=== PATIENT | male | born 1960 | race African-American/Black ===

== ENCOUNTER 2018-02-10 13:21 | Emergency (ER) | payer MEDICARE ==
--- OUTSIDE RECORDS SUMMARY | 2018-02-10 13:23 | XMS REPORT | Clinical Summary ---
:1960 Author Organization [facility] Address [address] [place] [address] Care Team Providers Name Role Phone Norberto Springer MD Primary Care Provider Allergies No Known Allergies Current Medications Prescription Sig. Disp. Refills Start Date End Date Status metFORMIN 2 (two) times 01/16/2017 Active (GLUCOPHAGE) 500 mg a day. tablet lancets 30 gauge USE TO TEST 3 12/31/2016 Active [facility] BLOOD GLUCOSE TWICE DAILY glimepiride daily. 01/16/2017 Active (AMARYL) 2 MG tablet ONETOUCH ULTRA TEST 02/26/2017 Active strip test strips lisinopril Take 1 tablet 90 tablet 3 03/04/2017 Active (PRINIVIL,ZESTRIL) (10 mg total) 10 mg tablet by mouth daily. amLODIPine Take 1 tablet 90 tablet 3 01/14/2018 Active (NORVASC) 5 mg (5 mg total) tablet by mouth daily. atorvastatin Take 1 tablet 90 tablet 3 01/14/2018 Active (LIPITOR) 40 MG (40 mg total) tablet by mouth daily. carvedilol (COREG) Take 1 tablet 180 tablet 3 01/14/2018 Active 3.125 MG tablet (3.125 mg total) by mouth 2 (two) times a day. lisinopril daily. 01/10/2017 03/04/2017 Discontinued (PRINIVIL,ZESTRIL) 10 mg tablet atorvastatin daily. 01/29/2017 03/04/2017 Discontinued (LIPITOR) 40 MG tablet carvedilol (COREG) 2 (two) times 01/29/2017 03/04/2017 Discontinued 3.125 MG tablet a day. amLODIPine Take 5 mg by 03/04/2017 Discontinued (NORVASC) 5 mg mouth daily. tablet carvedilol (COREG) Take 1 tablet 180 tablet 3 03/04/2017 01/14/2018 Discontinued 3.125 MG tablet (3.125 mg total) by mouth 2 (two) times a day. atorvastatin Take 1 tablet 90 tablet 3 03/04/2017 01/14/2018 Discontinued (LIPITOR) 40 MG (40 mg total) tablet by mouth daily. amLODIPine Take 1 tablet 90 tablet 3 03/04/2017 01/14/2018 Discontinued (NORVASC) 5 mg (5 mg total) tablet by mouth daily. carvedilol (COREG) Take 1 tablet 180 tablet 3 01/14/2018 01/14/2018 Discontinued 3.125 MG tablet (3.125 mg total) by mouth 2 (two) times a day. atorvastatin Take 1 tablet 90 tablet 3 01/14/2018 01/14/2018 Discontinued (LIPITOR) 40 MG (40 mg total) tablet by mouth daily. amLODIPine Take 1 tablet 90 tablet 3 01/14/2018 01/14/2018 Discontinued (NORVASC) 5 mg (5 mg total) tablet by mouth daily. 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 after 02/09/2017 Family History Medical History Relation Name Comments Diabetes Mother Heart disease Mother Hypertension Mother Relation Name Status Comments Mother Social History Tobacco Use Types Packs/Day Years Used Date Former Smoker Alcohol Use Drinks/Week oz/Week Comments No Sex Assigned at Date Recorded Not on file Last Filed Vital Signs Vital Sign Reading Time Taken Blood Pressure 166/97 03/04/2017 12:07 PM CDT Pulse 85 03/04/2017 12:07 PM CDT Temperature - - Respiratory Rate - - Oxygen Saturation - - Inhaled Oxygen Concentration - - Weight 98 kg (216 lb) 03/04/2017 11:45 AM CDT Height 172.7 cm (5' 8") 03/04/2017 11:45 AM CDT Body Mass Index 32.84 03/04/2017 11:45 AM CDT Plan of Treatment Health Maintenance Due Date Last Done Comments DIABETIC FOOT EXAM 1969 DIABETIC RETINAL EYE EXAM 1969 URINE MICROALBUMIN 1969 COLON CANCER SCREENING 2009 SHINGRIX VACCINE (#1) 2009 INFLUENZA VACCINE 03/12/2018 Procedures Procedure Name Priority Date/Time Associated Diagnosis Comments ECG 12-LEAD Routine 03/04/2017 11:01 AM Chest pain, Results for this CDT unspecified type procedure are in the results section. after 02/09/2017 Results ECG 12 lead (03/04/2017 11:01 AM) Ventricular rate 61 [facility] Atrial rate 61 [facility] KS interval 174 [facility] QRSD interval 90 [facility] QT interval 398 [facility] QTC interval 400 [facility] P axis 1 49 [facility] QRS axis 1 50 [facility] T wave axis 21 [facility] EKG impression Normal sinus rhythm-Minimal voltage criteria [facility] for LVH, may be normal variant-Borderline ECG-No previous ECGs available- Performing Organization Address City/State/Zipcode Phone Number [facility] [address] [place] [address] after 02/09/2017 Insurance Payer Benefit Plan / Group Subscriber ID Type Phone Address [facility] MEDICARE [employer] MEDICARE COMPLETE [facility] xxxxxxxxx HMO Home: [address] [place], [place] [phone] [address]
--- NOTE | 2018-02-10 14:41 | ER ---
Nurse's Notes [facility] Name: Alexandru Galan Age: 57 yrs Sex: Male : 1960 Arrival Date: 02/10/2018 Time: 13:24 Bed 23 Private MD: Norberto Springer E Diagnosis: Acute sinusitis Presentation: 02/10 13:30 Presenting complaint: Patient states: i have a sinus problem since and now i hj noticed its anand swollen; refused using nasal spray meds; denies fever and chills;. Transition of care: patient was not received from another setting of care. Onset of symptoms was February 10, 2018. Risk Assessment: Do you want to hurt yourself or someone else? Patient reports no desire to harm self or others. Initial Sepsis Screen: Does the patient meet any 2 criteria? No. Patient's initial sepsis screen is negative. Does the patient have a suspected source of infection? No. Patient's initial sepsis screen is negative. Care prior to arrival: None. 13:30 Method Of Arrival: Ambulatory 13:30 Acuity: NACHO 4 hj Triage Assessment: 13:32 General: Appears in no apparent distress. uncomfortable, Behavior is calm, cooperative, hj appropriate for age. Pain: Complains of pain in nose Pain currently is 7 out of 10 on a pain scale. Historical: - Allergies: 13:32 NKDA; hj - Home Meds: 13:32 Glimepiride Oral [Active]; lisinopril 20 mg Oral tab 1 tab once daily [Active]; hj metformin 500 mg Oral tab 1 tab 2 times per day [Active]; - PMHx: 13:32 Diabetes - NIDDM; Hypertension; hj - PSHx: 13:32 neck; hj - Immunization history:: Adult Immunizations up to date. - Social history:: Smoking status: Patient/guardian denies using tobacco, Patient/guardian denies using alcohol. - Ebola Screening: : Patient negative for fever greater than or equal to 101.5 degrees Fahrenheit, and additional compatible Ebola Virus Disease symptoms Patient denies exposure to infectious person Patient denies travel to an Ebola-affected area in the 21 days before illness onset. Screenin:34 Abuse screen: Denies threats or abuse. Denies injuries from another. Nutritional hj screening: No deficits noted. Tuberculosis screening: No symptoms or risk factors identified. Fall Risk None identified. Assessment: 13:51 General: Appears in no apparent distress. comfortable, Behavior is calm, cooperative, aj appropriate for age. Pain: Complains of pain in nose and left cheek. Neuro: Level of Consciousness is awake, alert, obeys commands, Oriented to person, place, time, situation, Appropriate for age. Respiratory: Airway is patent Respiratory effort is even, unlabored, Respiratory pattern is regular, symmetrical. EENT: Reports nasal congestion pain in nose and left cheek. Derm: Skin is intact, is healthy with good turgor, Skin is pink, warm \T\ dry. normal. 14:59 Reassessment: Patient appears in no apparent distress at this time. No changes from aj previously documented assessment. Patient and/or family updated on plan of care and expected duration. Pain level reassessed. Patient is alert, oriented x 3, equal unlabored respirations, skin warm/dry/pink. Patient states feeling better. Patient states symptoms have improved. Vital Signs: 13:32 BP 152 / 94; Pulse 78; Resp 18; Temp 98.0(TE); Pulse Ox 99% on R/A; Weight 93.44 kg; hj Height 5 ft. 8 in. (172.72 cm); Pain 7/10; 14:59 BP 149 / 87; Pulse 61; Resp 19; Pulse Ox 100% on R/A; aj 13:32 Body Mass Index 31.32 (93.44 kg, 172.72 cm) ED Course: 13:24 Patient arrived in ED. mr 13:25 Norberto Springer MD is Private Physician. mr 13:31 Triage completed. hj 13:34 Arm band placed on right wrist. hj 13:34 Patient has correct armband on for positive identification. Bed in low position. Call light in reach. Side rails up X 1. 13:41 Malathi Saunders, MICHEAL is Primary Nurse. aj 13:43 Jericho Interiano MD is Attending Physician. ps1 13:51 No provider procedures requiring assistance completed. aj 14:40 Norberto Springer MD is Referral Physician. ps1 14:59 Patient did not have IV access during this emergency room visit. aj Administered Medications: 14:53 Drug: Afrin Drops (0.05 %) 2 sprays Route: Intranasal; Site: left nare; aj Outcome: 14:41 Discharge ordered by . ps1 14:59 Discharged to home ambulatory, with family. aj 14:59 Condition: good 14:59 Discharge instructions given to patient, Instructed on discharge instructions, follow up and referral plans. medication usage, Demonstrated understanding of instructions, follow-up care, medications, Prescriptions given X 2. 15:02 Patient left the ED. aj Signatures: Malathi Saunders RN RN aj Rivera, Maria mr Geoff Agustin RN RN hj Singer, Phillip, MD MD ps1 Corrections: (The following items were deleted from the chart) 13:34 13:32 Pulse 78bpm; Resp 18bpm; Pulse Ox 99% RA; Temp 98.0F Temporal; 93.44 kg; Height 5 hj ft. 8 in.; BMI: 31.3; Pain 7/10; hj
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
[2018-02-10] MEDS ORDERED: OXYMETAZOLINE HCL 0.05% 30ML NAS ONE (14:45)
[2018-02-10 15:06] VITALS: TEMP 98
[2018-02-10 15:07] VITALS: BP 149/87; O2SAT 100
== END 2018-02-10 15:02 | disposition home or self-care (01) ==
LOC: ER 13:21
DX: J01.90 Acute sinusitis, unspecified (principal); I10 Essential (primary) hypertension; E11.9 Type 2 diabetes mellitus without complications
CPT/HCPCS: 99283

== ENCOUNTER 2022-04-27 07:47 | Emergency (ER) | payer OTHER ==
--- OUTSIDE RECORDS SUMMARY | 2022-04-27 07:50 | XMS REPORT | Continuity of Care Document ---
:1960 Author Organization [facility] t Address [address] [place] [address] Care Team Providers Name Role Phone Gian Kimball MD, Norberto Primary Care Physician [phone] JENNIFER LOUIE Attending Clinician Unavailable TORREY COMBS Attending Clinician Unavailable ANN ALVAREZ Attending Clinician Unavailable LAB47 Attending Clinician Unavailable Ann Alvarez MD Attending Clinician MD SORAIDA Attending Clinician Unavailable COVMARKY ALMONTE Attending Clinician Unavail able ALYSHA ESQUEDA Attending Clinician Unavailable Doctor Unassigned, [place] Attending Clinician Unavailable Lab, Adc Fam Pob I Attending Clinician Unavailable Daysi Cardona Attending Clinician Haroldo-Mbayo_A_AH Attending Clinician Unavailable Haroldo-Mbayo_A_AH Admitting Clinician Unavailable Payers Payer Name Policy Type Policy Number Effective Date Expiration Date S pastora [employer] TXP 7 [id number] 2021 CLASSIC NO PREMIUM 00:00:00 R2T [employer] OF [place] - [id number] 2019 [employer]US 00:00:00 (MEDICARE REPLACEMENT/ADVANT AGE - HMO) Problems Condition Condition Condition Status Onset Resolution Last Treating Co mments Source Name Details Category Date Date Treatment Clinician Date 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 Diabetic with a1c > 8% resulting in immunosup pression. Last Assessmen t & Plan: Formattin g of this note might be different from the original. Unchanged - working on improving glycemic control Allergic Allergic Disease Active Overview: Kirt burns rhinitis rhinitis 01-11 Medhat Sowy bold 00:00: g of this 00 note might be different from the original. On singulair Last Assessmen t & Plan: Formattin g of this note might be different from the original. Controlle d Obesity Obesity Disease Active Overview: Anjali lima (BMI (BMI 11-10 Formattin Seybold 30.0-34.9) 30.0-34.9) 00:00: g of this 00 note might be different from the original. Advising improving diet and exercise with goal for 10-15% weight loss annuallyL ast Assessmen t & Plan: Formattin g of this note might be different from the original. Unchanged - goals reviewed Type 2 Type 2 Disease Active Overview: Yaneli diabetes diabetes 11-10 Formattin y bold mellitus mellitus 00:00: g of this with with 00 note microalbum microalbum might be inuria, inuria, different without without from the long-term long-term original. current current Goal a1c use of use of < 7%Goal insulin insulin fasting glucose 80-130On metformin , glimepiri deMonitor ing renal functionO n Lisinopri lLast Assessmen t & Plan: Formattin g of this note might be different from the original. Not Controlle d DM on last check- c/w current meds/dose s; adjustmen ts based on labsUncha nged renal function- c/w current med/dose Class 1 Class 1 Disease Active Overview: Anjali lima obesity obesity 11-10 Formattin Sejuliao ld due to due to 00:00: g of this excess excess 00 note calories calories might be with with different serious serious from the comorbidit comorbidit original. y and body y and body Advising mass index mass index healthy (BMI) of (BMI) of diet and 31.0 to 31.0 to exercise 31.9 in 31.9 in with goal adult adult for 10-15% weight loss annuallyL ast Assessmen t & Plan: Formattin g of this note might be different from the original. Unchanged - goals reviewed Dyslipidem Dyslipidem Disease Active Overview : Yaneli ia ia - Formattin Seybold associated associated 00:00: g of this with type with type 00 note 2 diabetes 2 diabetes might be mellitus mellitus different from the original. Goal A1c < 7%Goal fasting glucose 80-130On Metformin , Glimepiri deLDL goal % reduction 50+%On ASA, Atorvasta tinLast Assessmen t & Plan: Formattin g of this note might be different from the original. Not Controlle d DM on last check- c/w current meds/dose s for now; adjustmen t based on labsContr olled cholester ol- c/w current med/dose Essential Essential Disease Active Overview: Yaneli hypertensi hypertensi - Formattin Seybold on on 00:00: g of this 00 note might be different from the original. Goal BP < 130/80On amlodipin e, coreg, lisinopri Monica PRN HYDRALAZI NE FOR SBP > 165Last Assessmen t & Plan: Formattin g of this note might be different from the original. Controlle d - c/w current meds/dose s Neck pain, Neck pain, Disease Active Overview : Yaneli chronic chronic 08-25 Formattin Seybo ld 00:00: g of this 00 note might be different from the original. S/p surgeryFo llowed in the past by Dr[facility] PR[facility] mobicLast Assessmen t & Plan: Formattin g of this note might be different from the original. Controlle d Chronic Chronic Disease Active Overview: Anjali ey pain of pain of 08-25 Formattin Seybo ld left elbow left elbow 00:00: g of this 00 note might be different from the original. S/p surgeryFo llowed in the past by Dr[facility] PRN mobicLast Assessmen t & Plan: Formattin g of this note might be different from the original. Controlle d Dyslipidem Dyslipidem Disease Active Overview : Yaneli chong ia 08-25 Formattin Seybold 00:00: g of this 00 note might be different from the original. Goal LDL % reduction 50+%On Atorvasta tinLast Assessmen t & Plan: Formattin g of this note might be different from the original. Controlle d - c/w current med/dose Allergies, Adverse Reactions, Alerts Allergy Allergy Status Severity Reaction(s) Onset Inactive Treating Comm ents Source Name Type Date Date Clinician NO KNOWN Drug Active [facility] ALLERGIE Class [facility] of [facility] Family History Family Member Diagnosis Comments Start Date Stop Date Source Natural mother Diabetes [facility] Natural mother Heart disease [facility] mother Hypertension [facility] Social History Social Habit Start Date Stop Date Quantity Comments Source Exposure to Not sure Yaneli diaz SARS-CoV-2 (event) Tobacco use and 2020-08-25 2020-08-25 Smokeless tobacco Kirt burns Seybold exposure 00:00:00 00:00:00 non-user Tobacco Comment 2020-08-25 2020-08-25 quit at age 20 Vicki shine Seybjyothi 00:00:00 00:00:00 Alcohol intake 2017-03-04 2017-03-04 Current [facility] 00:[facility] 00:00:00 non-drinker of Hospital alcohol (finding) History of 1981-08-25 Smoker Yaneli Lieberman tobacco use 00:00:00 Sex Ass[birth year] At [birth year] [facility] 00:[facility]00 Hospital Smoking Status Start Date Stop Date Source Unknown if ever smoked [facility] Ex-smoker 2020-08-25 00:00:00 2020-08-25 00:00:00 Yaneli baumann Medications Ordered Filled Start Stop Current Ordering Indication Dosage Frequency Signature Comments Components Source Medication Medication Date Date Medication? Clinician (SIG) Name Name Tdap Yes [id number] Administer Kirt burns (ADACEL) 6-02 one Seybold 5-2-15.5 00:00: LF-MCG/0.5 00 intramuscul ar Suspension Meloxicam Yes [id number] TAKE 1 Yaneli 15 MG oral 3-16 [id number] TABLET BY Se ybold Tablet 00:00: MOUTH 00 EVERY DAY NEEDED FOR PAIN Amlodipine Yes [id number] 10mg Take 1 K elsey Besylate 10 1-14 tablet (10 Se ybold MG oral 00:00: mg total) Tablet 00 by mouth daily Atorvastati 0 Yes [id number] 40mg Take 1 Yaneli n Calcium 1-14 tablet (40 Seyb old 40 MG oral 00:00: mg total) Tablet 00 by mouth daily Carvedilol 0 Yes [id number] 3.125mg Take 1 Yaneli 3.125 MG 1-14 tablet Seybold oral Tablet 00:00: (3.125 mg 00 total) by mouth 2 times daily (with meals) Glimepiride 0 Yes [id number] 2mg Take 1 Yaneli 2 MG oral 1-14 tablet (2 Seybo ld Tablet 00:00: mg total) 00 by mouth every morning (before breakfast) Lisinopril 0 Yes [id number] 10mg Take 1 K elsey 10 MG oral 1-14 tablet (10 Sey bold Tablet 00:00: mg total) 00 by mouth daily Metformin Yes [id number] 1000mg Take 1 Yaneli HCl 1000 MG 1-14 tablet Seybol d oral Tablet 00:00: (1,000 mg 00 total) by mouth 2 times daily (with meals) Amlodipine 0 Yes [id number] 10mg Take 1 K elsey Besylate 10 1-14 tablet (10 Se ybold MG oral 00:00: mg total) Tablet 00 by mouth daily Atorvastati 0 Yes [id number] 40mg Take 1 Ynaeli n Calcium 1-14 tablet (40 Seyb old 40 MG oral 00:00: mg total) Tablet 00 by mouth daily Carvedilol 0 Yes [id number] 3.125mg Take 1 Yaneli 3.125 MG 1-14 tablet Seybold oral Tablet 00:00: (3.125 mg 00 total) by mouth 2 times daily (with meals) Glimepiride 2021-0 Yes [id number] 2mg Take 1 Yaneli 2 MG oral 1-14 tablet (2 Seybo ld Tablet 00:00: mg total) 00 by mouth every morning (before breakfast) Lisinopril 2021-0 Yes [id number] 10mg Take 1 K elsey 10 MG oral 1-14 tablet (10 Sey bold Tablet 00:00: mg total) 00 by mouth daily Metformin Yes [id number] 1000mg Take 1 Yaneli HCl 1000 MG -14 tablet Seybol d oral Tablet 00:00: (1,000 mg 00 total) by mouth 2 times daily (with meals) Meloxicam 2020-08 Yes [id number] TAKE 1 Yaneil 15 MG oral 09-13 [id number] TABLET BY Se ybold Tablet 00:00: MOUTH 00 EVERY DAY NEEDED FOR PAIN Lisinopril 2020-08- No [id number] TAKE 1 Yaneli 10 MG oral 08-1514 TABLET BY Sey bold Tablet 00:00: 00:00 MOUTH 00 :00 EVERY DAY Metformin 2021- No [id number] TAKE 1 K elsey HCl 1000 MG 02-15 TABLET BY Se ybold oral Tablet 00:00: 00:00 MOUTH 00 :00 TWICE A DAY WITH MEALS Carvedilol 2021- No [id number] TAKE 1 Yaneli 3.125 MG 18 08-25 TABLET BY Seybo ld oral Tablet 00:00: 00:00 MOUTH 00 :00 TWICE A DAY WITH MEALS Zoster Vac Yes [id number] One dose Yaneli Recomb 4 now. Seybold Adjuvanted 00:00: Second 50 00 dose given MCG/0.5ML two to six intramuscul months ar Recon AFTER Susp first dose. Zoster Vac 2021- No [id number] One dose Yaneli Recomb 4- 06-02 now. Seybold Adjuvanted 00:00: 00:00 Second 50 00 :00 dose given MCG/0.5ML two to six intramuscul months ar Recon AFTER Susp first dose. Amlodipine 2021- No [id number] 10mg Take 1 Yaneli Besylate 10 -14 tablet (10 S eybold MG oral 00:00: 00:00 mg total) Tablet 00 :00 by mouth daily Levocetiriz Yes 1{tbl} Take 1 Ke lsey ine 1-28 tablet by Seybold Dihydrochlo 00:00: mouth ride 5 MG 00 every oral Tablet evening Montelukast Yes 1{tbl} Take 1 Ke lsey (SINGULAIR) 1-28 tablet by Sey bold 10 MG oral 00:00: mouth Tablet 00 daily tablet Levocetiriz Yes 1{tbl} Take 1 Ke lsey ine 1-28 tablet by Seybold Dihydrochlo 00:00: mouth ride 5 MG 00 every oral Tablet evening Montelukast Yes 1{tbl} Take 1 Ke lsey (SINGULAIR) -28 tablet by Sey bold 10 MG oral 00:00: mouth Tablet 00 daily tablet Atorvastati 2021- No [id number] 40mg Take 1 Yaneli n Calcium 08-25 tablet (40 Sey bold 40 MG oral 00:00: 00:00 mg total) Tab 00 :00 by mouth daily Glimepiride 2021- No [id number] 2mg Take 1 Yaneli 2 MG oral 08-25 tablet (2 Seyb old Tab 00:00: 00:00 mg total) 00 :00 by mouth every morning (before breakfast) hydrALAZINE Yes [id number] TAKE 1 Yaneli HCl 10 MG 1-02 TABLET BY Seybo ld oral Tab 00:00: MOUTH UP 00 TO 3 TIMES A DAY IF SYSTOLIC BLOOD PRESSURE IS GREATER THAN 165 hydrALAZINE Yes [id number] TAKE 1 Yaneli HCl 10 MG 1-02 TABLET BY Seybo ld oral Tab 00:00: MOUTH UP 00 TO 3 TIMES A DAY IF SYSTOLIC BLOOD PRESSURE IS GREATER THAN 165 HYDROcodone 2019-08 Yes [id number] 1{tbl} Q8H Take 1 Yaneli -Acetaminop 2-29 [id number] tablet by [place] garcia 10-325 00:00: mouth MG oral Tab 00 every 8 hours as needed for pain HYDROcodone 2019-08- No [id number] 1{tbl} Q.[id number] Take 1 Yaneli -Acetaminop 2-29 06-02 [id number] tablet by Luisana garcia 10-325 00:00: 00:00 3D mouth MG oral Tab 00 :00 every 8 hours as needed for pain carvedilol Yes 3.125mg Q.5D Take 1 Me thodi (COREG) 6-[address] 3.125 MG 00:00: (3.125 mg Hosp [facility] tablet 00 total) by l mouth 2 (two) times a day. amLODIPine 2018-0 Yes 5mg QD Take 1 Metho di (NORVASC) 5 6-05 tablet (5 st mg tablet 00:00: mg total) Hos jennifer 00 by mouth l daily. atorvastati 2018-0 Yes 40mg QD Take 1 Meth butch n (LIPITOR) 6-05 tablet (40 st 40 MG 00:00: mg total) Hospita tablet 00 by mouth l daily. carvedilol 2018-0 Yes 3.125mg Q.5D Take 1 Me thodi (COREG) 6-[address] 3.125 MG 00:00: (3.125 mg Hosp kat[facility] tablet 00 total) by l mouth 2 (two) times a day. amLODIPine 2018-0 Yes 5mg QD Take 1 Metho di (NORVASC) 5 6-05 tablet (5 st mg tablet 00:00: mg total) Hos jennifer 00 by mouth l daily. atorvastati 2018-0 Yes 40mg QD Take 1 Meth butch n (LIPITOR) 6-05 tablet (40 st 40 MG 00:00: mg total) Hospita tablet 00 by mouth l daily. carvedilol 2018-0 Yes 3.125mg Q.5D Take 1 Me thodi (COREG) 6-[address] 3.125 MG 00:00: (3.125 mg Hosp [facility] tablet 00 total) by l mouth 2 (two) times a day. amLODIPine 2018-0 Yes 5mg QD Take 1 Metho di (NORVASC) 5 6-05 tablet (5 st mg tablet 00:00: mg total) Hos jennifer 00 by mouth l daily. atorvastati 2018-0 Yes 40mg QD Take 1 Meth butch n (LIPITOR) 6-05 tablet (40 st 40 MG 00:00: mg total) Hospita tablet 00 by mouth l daily. lisinopril 2017-0 Yes 10mg QD Take 1 Metho di (PRINIVIL,Z 7-24 tablet (10 st ESTRIL) 10 00:00: mg total) Ho spita mg tablet 00 by mouth l daily. lisinopril 2017-0 Yes 10mg QD Take 1 Metho di (PRINIVIL,Z 7-24 tablet (10 st ESTRIL) 10 00:00: mg total) Ho spita mg tablet 00 by mouth l daily. lisinopril 2017-0 Yes 10mg QD Take 1 Metho di (PRINIVIL,Z 7-24 tablet (10 st ESTRIL) 10 00:00: mg total) Ho spita mg tablet 00 by mouth l daily. ONETOUCH Yes Methodi ULTRA TEST 7-18 st strip test 00:00: Hospita strips 00 l ONETOUCH Yes [facility] ULTRA TEST 7-18 st strip test 00:00: Hospita strips 00 l ONETOUCH Yes [facility] ULTRA TEST 7-18 st strip test 00:00: Hospita strips 00 l glimepiride 2016-0 Yes QD daily. Meth butch (AMARYL) 2 6-07 st MG tablet 00:00: Hospita 00 l glimepiride Yes QD daily. Meth butch (AMARYL) 2 6-07 st MG tablet 00:00: Hospita 00 l metFORMIN Yes Q.5D 2 (two) Metho di (GLUCOPHAGE 6-[address] ) 500 mg 00:00: day. Hospita tablet 00 l metFORMIN Yes Q.5D 2 (two) Metho di (GLUCOPHAGE 6-[address] ) 500 mg 00:00: day. Hospita tablet 00 l glimepiride Yes QD daily. Meth butch (AMARYL) 2 6-07 st MG tablet 00:00: Hospita 00 l metFORMIN Yes Q.5D 2 (two) Metho di (GLUCOPHAGE 6-[address] ) 500 mg 00:00: day. Hospita tablet 00 l lancets Yes USE TO Metho di gauge misc 5-[address] 00:00: GLUCOSE Hospita 00 TWICE l DAILY lancets Yes USE TO Metho di gauge misc 5-[address] 00:00: GLUCOSE Hospita 00 TWICE l DAILY lancets Yes USE TO Metho di gauge misc 5-[address] 00:00: GLUCOSE Hospita 00 TWICE l DAILY Immunizations Ordered Immunization Filled Immunization Date Status Commen ts Source Name Name Pneumococcal Vaccine, 2021-08-25 Completed Shai Lieberman Polysaccharide 00:00:00 Pneumococcal Vaccine, 2021-08-25 Completed Shai Lieberman Polysaccharide 00:00:00 Covid-19 Vaccine 2021-07-11 Completed Yaneli heckld (Moderna), Mrna-lnp, 00:00:00 Se Protein, Pf, 100 Mcg/0.5ml,IM Covid-19 Vaccine 2021-07-11 Completed Yaneli heckld Moderna (Spikevax), 00:00:00 Mrna-lnp, Se Protein, Pf Influenza Virus 2021-07-07 Completed Yaneli Sow ybold Vaccine, No Preserv, 00:00:00 age 6 months and up Influenza Virus 2021-07-07 Completed Yaneli Se ybold Vaccine, No Preserv, 00:00:00 age 6 months and up Shingles IM 2021-03-02 Completed Yaneli Seybol d (Shingrix) 00:00:00 Shingles IM 2021-03-02 Completed Yaneli Seybol d (Shingrix) 00:00:00 Shingles IM 2020-11-10 Completed Yaneli Seybol d (Shingrix) 00:00:00 Shingles IM 2020-11-10 Completed Yaneli Seybol d (Shingrix) 00:00:00 SARS-COV-2 COVID-19 2020-10-16 Completed Unive rsity of MODERNA VACCINE 00:00:00 [facility] Covid-19 Vaccine 2020-10-16 Completed Yaneli heckld (Moderna), Mrna-lnp, 00:00:00 eS Protein, Pf, 100 Mcg/0.5ml,IM Covid-19 Vaccine 2020-10-16 Completed Yaneli baumann Moderna (Spikevax), 00:00:00 Mrna-lnp, Se Protein, Pf SARS-COV-2 COVID-19 2020-09-18 Completed Unive rsity of MODERNA VACCINE 00:00:00 [facility] Covid-19 Vaccine 2020-09-18 Completed Yaneli limabold (Moderna), Mrna-lnp, 00:00:00 Se Protein, Pf, 100 Mcg/0.5ml,IM Covid-19 Vaccine 2020-09-18 Completed Yaneli heckld Moderna (Spikevax), 00:00:00 Mrna-lnp, Se Protein, Pf Vital Signs Vital Name Observation Time Observation Value Comments Source Systolic blood pressure 2022-01-11 19:46:00 120 mm[Hg] Yaneli Seybold Diastolic blood 2022-01-11 19:46:00 70 mm[Hg] Kelse y Seybold pressure Heart rate 2022-01-11 19:46:00 80 /min Yaneli S eybold Body temperature 2022-01-11 19:46:00 36.72 Blanca Anjali ey Seybold Respiratory rate 2022-01-11 19:46:00 16 /min Anjali ey Seybold Body height 2022-01-11 19:46:00 170.2 cm Yaneli S eybold Body weight 2022-01-11 19:46:00 90.357 kg Yaneli S eybold BMI 2022-01-11 19:46:00 31.20 kg/m2 Yaneli S eybold Systolic blood pressure 2021-08-25 20:13:00 128 mm[Hg] Yaneli Seybold Diastolic blood 2021-08-25 20:13:00 74 mm[Hg] Kelse y Seybold pressure Heart rate 2021-08-25 20:13:00 80 /min Yaneli S eybold Body temperature 2021-08-25 20:13:00 36.72 Blanca Anjali ey Seybold Respiratory rate 2021-08-25 20:13:00 16 /min Anjali ey Seybold Body height 2021-08-25 20:13:00 172.7 cm Yaneli S eybold Body weight 2021-08-25 20:13:00 91.445 kg Yaneli S eybold BMI 2021-08-25 20:13:00 30.65 kg/m2 Yaneli Niño eybold Procedures Procedure Date / Time Performing Clinician Source Performed AUTHORIZATION FOR 2020-12-29 05:01:00 Doctor Unassigned, No [facility] RELEASE OF PHI Name Medical Branch Plan of Care Planned Activity Planned Date Details Comments Source Future Scheduled 2022-04-13 HEPATITIS B VACCINES [facility] Test 11:29:54 (1 of 3 - 3-dose series) [code = HEPATITIS B VACCINES (1 of 3 - 3-dose series)] Future Scheduled 2022-04-13 COVID-19 VACCINE (#1) [facility] Test 11:29:54 [code = COVID-19 VACCINE (#1)] Future Scheduled 2022-04-13 COLONOSCOPY SCREENING [facility] Test 11:29:54 [code = COLONOSCOPY SCREENING] Future Scheduled 2022-04-13 SHINGLES VACCINES (1 Met [facility] Test 11:29:54 of 2) [code = SHINGLES VACCINES (1 of 2)] Future Scheduled 2022-04-13 INFLUENZA VACCINE [facility] Test 11:29:54 [code = INFLUENZA VACCINE] Future Scheduled 2022-04-06 HEPATITIS B VACCINES [facility] Test 16:50:10 (1 of 3 - 3-dose series) [code = HEPATITIS B VACCINES (1 of 3 - 3-dose series)] Future Scheduled 2022-04-06 COVID-19 VACCINE (#1) [facility] Test 16:50:10 [code = COVID-19 VACCINE (#1)] Future Scheduled 2022-04-06 COLONOSCOPY SCREENING [facility] Test 16:50:10 [code = COLONOSCOPY SCREENING] Future Scheduled 2022-04-06 SHINGLES VACCINES (1 Met [facility] Test 16:50:10 of 2) [code = SHINGLES VACCINES (1 of 2)] Future Scheduled 2022-04-06 INFLUENZA VACCINE [facility] Test 16:50:10 [code = INFLUENZA VACCINE] Future Scheduled 2022-04-06 HEPATITIS B VACCINES [facility] Test 16:50:10 (1 of 3 - 3-dose series) [code = HEPATITIS B VACCINES (1 of 3 - 3-dose series)] Future Scheduled 2022-04-06 COVID-19 VACCINE (#1) [facility] Test 16:50:10 [code = COVID-19 VACCINE (#1)] Future Scheduled 2022-04-06 COLONOSCOPY SCREENING [facility] Test 16:50:10 [code = COLONOSCOPY SCREENING] Future Scheduled 2022-04-06 SHINGLES VACCINES (1 Met [facility] Test 16:50:10 of 2) [code = SHINGLES VACCINES (1 of 2)] Future Scheduled 2022-04-06 INFLUENZA VACCINE [facility] Test 16:50:10 [code = INFLUENZA VACCINE] Encounters Start End Encounter Admission Attending Care Care Encounter Source Date/Time Date/Time Type Type Clinicians Facility Department ID 2022-05-25 2022-05-25 Outpatient JACY, JENNIFER YANELI FREEMAN [id number] Yaneli 14:00:00 14:00:00 Seybol d 2022-05-17 2022-05-17 Outpatient TORREY COMBS YANELI FREEMAN [id number] Yaneli 13:45:00 13:45:00 Seybol d 2022-02-19 2022-02-19 Outpatient YANELI ALVAREZ [id number] Yaneli 00:00:00 00:00:00 ANN Seybol d 2022-01-11 2022-01-11 Outpatient LAB47 YANELI FREEMAN [id number] Yaneli 15:50:00 15:50:00 Seybol d 2022-01-11 2022-01-11 Office MARTINA Alvarez [id number] Yaneli 14:30:00 15:15:00 Visit Ann H [id number] S eybold [id number] 2021-12-26 2021-12-26 Outpatient DELIOONJocelyne FREEMAN [id number] Yaneli 00:00:00 00:00:00 MD ADITHYA Seybol d 2021-12-13 2021-12-13 Outpatient YANELI ALVAREZ [id number] Yaneli 10:45:00 10:45:00 ANN Seybol d 2021-10-25 2021-10-25 Outpatient YANELI ALVAREZ [id number] Yaneli 00:00:00 00:00:00 ANN Seybol d 2021-08-25 2021-08-25 Outpatient LAB47 YANELI FREEMAN [id number] Yaneli 15:05:00 15:05:00 Seybol d 2021-08-25 2021-08-25 Office MARTINA Alvarez [id number] Yaneli 14:15:00 14:30:00 Visit Ann H [id number] S eybold [id number] 2021-07-13 2021-07-13 Outpatient YANELI ALVAREZ [id number] Yaneli 00:00:00 00:00:00 ANN Seybol d 2021-07-11 2021-07-11 Outpatient COVID-MODER YANELI FREEMAN [id number] Yaneli 13:30:00 13:30:00 NA Se mar ROBLES 2021-05-31 2021-05-31 Outpatient YANELI ALVAREZ [id number] Yaneli 00:00:00 00:00:00 ANN Seybol d 2021-04-26 2021-04-26 Outpatient SAIKIYANELI Hunt [id number] Yaneli 00:00:00 00:00:00 ANN Seybol d 2021-03-12 2021-03-12 Outpatient SAYANELI TURNER [id number] Yaneli 00:00:00 00:00:00 ANN Seybol d 2021-03-02 2021-03-02 Outpatient YANELI ALVAREZ [id number] Yaneli 00:00:00 00:00:00 ANN Seybol d 2021-03-01 2021-03-01 Outpatient YANELI ESQUEDA [id number] Yaneli 10:00:00 10:00:00 ALYSHA Seybol d 2020-12-29 2020-12-29 Orders Doctor STERLING [id number] Univers 00:00:00 00:00:00 Only Unassigned, LOBO [id number] ity of [place] [facility] [id number] Lon as [phone] [address] 2020-10-16 2020-10-16 Outpatient [facility] [id number] Univers 14:55:00 14:55:00 ity [facility] 2020-09-18 2020-09-18 Outpatient [facility] [id number] Univers 14:50:00 14:50:00 ity [facility] 2020-04-08 2020-04-08 Laboratory Lab, Adc Fam Pob I [facility] [id number]. [id number] Univers 16:50:31 17:10:31 Only Anerui, Daysi Moore [id number] ity of [place] [id number] Lon as Professio [id number] In d[place] [address] [address] 2020-04-08 2020-04-08 Outpatient R [facility] [id number] Univers 16:40:00 16:40:00 ity [facility] 2019-10-08 2019-10-08 Outpatient Haroldo-Mbayo VFP VFP [address] [place] [address] 05:55:00 05:55:00 _A_AH [id number] Family Practic e 2019-10-08 2019-10-08 Outpatient Haroldo-Mbayo [facility]FP [facility] [address] [place] [address] 05:55:00 05:55:00 _A_AH [id number] Family Practic e Results This patient has no known results.
--- NOTE | 2022-04-27 09:02 | RAD REPORT ---
EXAM DESCRIPTION: CT - Spine Lumbar Wo Con - 04/27/2022 8:49 am CLINICAL HISTORY: Low back pain, no red flags, no prior management, left lower extremity radiculopat hy COMPARISON: None. TECHNIQUE: Thin section axial imaging of the lumbar spine was performed. Sagittal and coronal recon struction images were generated and reviewed. All CT scans are performed using dose optimization technique as appropriate and may include automated exposure control or mA/KV adjustment according to patient size. FINDINGS: Lumbar bodies are normal in height and alignment. No compression fracture. No pathologic b one process seen. There is anterior disc bulge and endplate spurring changes at L1-2 and L2-3. Facet joint degenerative changes are minimal. No pars defects are seen. No paraspinal soft tissue mass present. T12-L1 level: No significant finding. L1-2 level: No significant finding. L2-3 level: Mild circumferential disc bulge without canal or foramen stenosis. L3-4 level: Mild circumferential disc bulge without canal or foramen stenosis. L4-5 level: Minimal disc bulge. No canal or foramen stenosis. L5-S1 level: No significant finding. IMPRESSION: Central canal detail is inherently limited on CT imaging of the spine. There is no disc herniation identifiable. Mild disc bulge changes between L2 and L5 do not cause significant canal or foramen encroachment. No acute bone finding. No paraspinal mass.
[2022-04-27] MEDS ORDERED: METHYLPREDNISOLONE 125 MG INJ ONE (09:19)
[2022-04-27] MEDS ORDERED: KETOROLAC 30 MG/ML INJ ONE (09:19)
--- NOTE | 2022-04-27 09:35 | ER ---
Nurse's Notes [facility] Name: Alexandru Galan Age: 61 yrs Sex: Male : 1960 Arrival Date: 04/27/2022 Time: 07:56 Bed 5 Private MD: Diagnosis: Low back pain Presentation: 04/27 08:01 Chief complaint: Patient states: lower back pain that started last Saturday night kr3 04/17/22. has progressively gotten worse and is now causing shooting pain down the front of the left leg and in the groin area. Also causing pain mid right back area. Coronavirus screen: Vaccine status: Patient reports receiving the 2nd dose of the covid vaccine. Client denies travel out of the [place] in the last 14 days. Ebola Screen: Patient denies travel to an Ebola-affected area in the 21 days before illness onset. Initial Sepsis Screen: Does the patient meet any 2 criteria? No. Patient's initial sepsis screen is negative. Does the patient have a suspected source of infection? No. Patient's initial sepsis screen is negative. Risk Assessment: Do you want to hurt yourself or someone else? Patient reports no desire to harm self or others. Onset of symptoms was April 17, 2022. 08:01 Method Of Arrival: Ambulatory kr3 08:01 Acuity: NACHO 3 kr3 Triage Assessment: 08:07 General: Appears in no apparent distress. uncomfortable, Behavior is calm, cooperative, kr3 appropriate for age. Pain: Complains of pain in back and left leg Pain currently is 9 out of 10 on a pain scale. Historical: - Allergies: 08:05 NKDA; kr3 - PMHx: 08:05 Diabetes - NIDDM; Hypertension; kr3 - PSHx: 08:06 neck sx; kr3 - Immunization history:: Adult Immunizations up to date. - Social history:: Smoking status: Patient/guardian denies using tobacco, the patient reports quitting approximately 50 years ago. Screenin:30 Abuse screen: Denies threats or abuse. 6 08:30 Nutritional screening: No deficits noted. Tuberculosis screening: No symptoms or risk 6 factors identified. Fall Risk Assessment: 08:10 General: Appears in no apparent distress. Behavior is calm, cooperative. 6 08:10 Pain: Complains of pain in coccyx, left lower back and right lower back. jh6 11:00 Reassessment: Patient and/or family updated on plan of care and expected duration. Pain jh6 level reassessed. Patient is alert, oriented x 3, equal unlabored respirations, skin warm/dry/pink. Patient denies pain at this time. Patient states feeling better. Vital Signs: 08:01 BP 156 / 88; Pulse 67; Resp 16; Temp 98.3; Pulse Ox 100% on R/A; Weight 92.99 kg; kr3 Height 5 ft. 8 in. (172.72 cm); Pain 9/10; 11:01 BP 148 / 88; Pulse 76; Resp 17; Pulse Ox 98% ; Pain 0/10; jh6 08:01 Body Mass Index 31.17 (92.99 kg, 172.72 cm) kr3 ED Course: 07:56 Patient arrived in ED. am2 07:58 Jose Cruz Terrell MD is Attending Physician. kdr 08:05 Triage completed. kr3 08:08 Arm band placed on Patient placed in an exam room, on a stretcher. kr3 08:23 Yana Morejon, MICHEAL is Primary Nurse. jh6 08:[address] via wheelchair. jh6 08:51 CT Lumbar Spine Wo Con In Process Unspecified. EDMS 09:00 Bed in low position. Call light in reach. Side rails up X 1. jh6 09:00 Inserted saline lock: 20 gauge in right antecubital area, using aseptic technique. jh6 11:02 No provider procedures requiring assistance completed. jh6 11:03 IV discontinued, intact, bleeding controlled, No redness/swelling at site. Pressure jh6 dressing applied. Administered Medications: 09:13 Drug: Ketorolac 15 mg Route: IVP; Site: right antecubital; jh6 11:04 Follow up: Response: Pain is decreased jh6 09:13 Drug: SOLU-Medrol (methylPrednisoLONE) 125 mg Route: IVP; Site: right antecubital; jh6 11:04 Follow up: Response: No adverse reaction; Pain is decreased jh6 09:31 Drug: Robaxin (methocarbamol) 1 grams Route: IVPB; Infused Over: 1 hrs; Site: right [facility] antecubital; 11:04 Follow up: IV Status: Completed infusion jh6 Medication: 11:02 VIS not applicable for this client. 6 Outcome: 09:34 Discharge ordered by . kdr 11:02 Discharged to home ambulatory. jh6 11:02 Condition: good 11:02 Discharge instructions given to patient, Instructed on discharge instructions, follow up and referral plans. Demonstrated understanding of instructions, follow-up care, medications, Prescriptions given X 4. 11:04 Patient left the ED. 6 Signatures: Dispatcher [employer] EDMS Jose Cruz Terrell MD MD kdr Malathi Devlin am2 Yana Morejon RN RN 6 Valorie Snider RN RN kr3 Corrections: (The following items were deleted from the chart) 11: 09:35 Inserted saline lock: 20 gauge in right antecubital area, using aseptic 6 technique. 6
--- NOTE | 2022-04-27 09:35 | EDPHYS ---
Physician Documentation [facility] Name: Alexandru Galan Age: 61 yrs Sex: Male : 1960 Arrival Date: 04/27/2022 Time: 07:56 Bed 5 Private MD: ED Physician Jose Cruz Terrell HPI: 04/27 15:36 This 61 yrs old Black Male presents to ER via Ambulatory with complaints of Low Back kdr Pain, Hip Pain. 15:36 The patient presents with pain that is acute, with no known mechanism of injury. The kdr symptoms are located in the low back. Patient presents with lower back pain that started last Saturday night. The pain has become progressively worse and is now shooting broadly across his low back and down into his left leg and left groin area. He also has some pain in the right side but to a lesser degree. The problem was sustained from unknown cause. Onset: The symptoms/episode began/occurred acutely, 4 day(s) ago. Modifying factors: The patient symptoms are alleviated by remaining still, the patient symptoms are aggravated by any movement, bending. Associated signs and symptoms: The patient has no apparent associated signs or symptoms. Severity of symptoms: At their worst the symptoms were mild, moderate, just prior to arrival, in the emergency department the symptoms are unchanged. The patient has not experienced similar symptoms in the past. The patient has not recently seen a physician. Historical: - Allergies: 08:05 NKDA; kr3 - PMHx: 08:05 Diabetes - NIDDM; Hypertension; kr3 - PSHx: 08:06 neck sx; kr3 - Immunization history:: Adult Immunizations up to date. - Social history:: Smoking status: Patient/guardian denies using tobacco, the patient reports quitting approximately 50 years ago. ROS: 15:36 Constitutional: Negative for fever, chills, and weight loss, Eyes: Negative for injury, kdr pain, redness, and discharge, Neck: Negative for injury, pain, and swelling, Cardiovascular: Negative for chest pain, palpitations, and edema, Respiratory: Negative for shortness of breath, cough, wheezing, and pleuritic chest pain, Abdomen/GI: Negative for abdominal pain, nausea, vomiting, diarrhea, and constipation, : Negative for injury, bleeding, discharge, and swelling, MS/Extremity: Negative for injury and deformity, Skin: Negative for injury, rash, and discoloration, Psych: Negative for depression, anxiety, suicide ideation, homicidal ideation, and hallucinations, Allergy/Immunology: Negative for hives, rash, and allergies, Endocrine: Negative for neck swelling, polydipsia, polyuria, polyphagia, and marked weight changes, Hematologic/Lymphatic: Negative for swollen nodes, abnormal bleeding, and unusual bruising. 15:36 Back: Positive for pain with movement, radiated pain, Negative for Exam: 15:36 Constitutional: This is a well developed, well nourished patient who is awake, alert, kdr and in no acute distress. Head/Face: Normocephalic, atraumatic. Eyes: Pupils equal round and reactive to light, extra-ocular motions intact. Lids and lashes normal. Conjunctiva and sclera are non-icteric and not injected. Cornea within normal limits. Periorbital areas with no swelling, redness, or edema. Neck: Trachea midline, no thyromegaly or masses palpated, and no cervical lymphadenopathy. Supple, full range of motion without nuchal rigidity, or vertebral point tenderness. No Meningismus. Chest/axilla: Normal chest wall appearance and motion. Nontender with no deformity. No lesions are appreciated. Cardiovascular: Regular rate and rhythm with a normal S1 and S2. No gallops, murmurs, or rubs. Normal PMI, no JVD. No pulse deficits. Respiratory: Lungs have equal breath sounds bilaterally, clear to auscultation and percussion. No rales, rhonchi or wheezes noted. No increased work of breathing, no retractions or nasal flaring. Abdomen/GI: Soft, non-tender, with normal bowel sounds. No distension or tympany. No guarding or rebound. No evidence of tenderness throughout. Skin: Warm, dry with normal turgor. Normal color with no rashes, no lesions, and no evidence of cellulitis. MS/ Extremity: Pulses equal, no cyanosis. Neurovascular intact. Full, normal range of motion. Neuro: Awake and alert, GCS 15, oriented to person, place, time, and situation. Cranial nerves II-XII grossly intact. Motor strength 5/5 in all extremities. Sensory grossly intact. Cerebellar exam normal. Normal gait. Psych: Awake, alert, with orientation to person, place and time. Behavior, mood, and affect are within normal limits. 15:36 Back: pain, that is mild, of the low back area, ROM is painful, normal spinal alignment noted, CVA tenderness, is absent, vertebral tenderness, is not appreciated. Vital Signs: 08:01 BP 156 / 88; Pulse 67; Resp 16; Temp 98.3; Pulse Ox 100% on R/A; Weight 92.99 kg; kr3 Height 5 ft. 8 in. (172.72 cm); Pain 9/10; 11:01 BP 148 / 88; Pulse 76; Resp 17; Pulse Ox 98% ; Pain 0/10; jh6 08:01 Body Mass Index 31.17 (92.99 kg, 172.72 cm) kr3 MDM: 09:34 Patient medically screened. kdr 15:36 Data reviewed: vital signs, nurses notes, lab test result(s), radiologic studies. kdr Counseling: I had a detailed discussion with the patient and/or guardian regarding: the historical points, exam findings, and any diagnostic results supporting the discharge/admit diagnosis, lab results, radiology results, the need for outpatient follow up. 04/27 08:33 Order name: Urinalysis; Complete Time: 10:15 kdr 04/27 09:41 Order name: Urine Dipstick-Ancillary; Complete Time: 10:15 EDMS 04/27 08:32 Order name: CT Lumbar Spine Wo Con; Complete Time: 09:07 kdr Administered Medications: 09:13 Drug: Ketorolac 15 mg Route: IVP; Site: right antecubital; [facility] 11:04 Follow up: Response: Pain is decreased [facility] 09:13 Drug: SOLU-Medrol (methylPrednisoLONE) 125 mg Route: IVP; Site: right antecubital; [facility] 11:04 Follow up: Response: No adverse reaction; Pain is decreased [facility] 09:31 Drug: Robaxin (methocarbamol) 1 grams Route: IVPB; Infused Over: 1 hrs; Site: right [facility] antecubital; 11:04 Follow up: IV Status: Completed infusion [facility] Disposition Summary: 04/27/22 09:34 Discharge Ordered Location: Home kdr Problem: new kdr Symptoms: have improved kdr Condition: Stable kdr Diagnosis - Low back pain kdr Followup: kdr - With: Private Physician - When: 2 - 3 days - Reason: If symptoms return, Further diagnostic work-up, Recheck today's complaints, Continuance of care, Re-evaluation by your physician Discharge Instructions: - Discharge Summary Sheet kdr - Acute Back Pain, Adult kdr - Musculoskeletal Pain kdr - Back Exercises, [id number] kdr Forms: - Medication Reconciliation Form kdr - Thank You Letter kdr - Prescription Opioid Use kdr Prescriptions: - Ibuprofen 600 mg Oral Tablet - take 1 tablet by ORAL route every 6 hours As needed take with food; 30 tablet; kdr Refills: 0, Product Selection Permitted - Cyclobenzaprine 10 mg Oral Tablet - take 1 tablet by ORAL route every 8 hours As needed; 30 tablet; Refills: 0, kdr Product Selection Permitted - Tramadol 50 mg Oral Tablet - take 1 tablet by ORAL route every 8 hours as needed; 12 tablet; Refills: 0, kdr Product Selection Permitted - Medrol (Endy) 4 mg Oral Tablets, Dose Pack - take 1 tablet by ORAL route as directed - follow package instructions; 1 kdr packet; Refills: 0, Product Selection Permitted Signatures: Dispatcher [employer] Jose Cruz Chappell MD MD kdr Yana Morejon, RN RN jh6 Valorie Snider RN RN kr3
[2022-04-27 09:41] LABS: Urine Blood Negative (Negative); Urine Glucose Trace (Negative); Urine Protein Negative (Negative); Urine Specific Gravity 1.025 (1.005-1.030); Urine pH 5.5 (5.0-7.0)
[2022-04-27 09:49] LABS: Specific Gravity 1.017 (1.005-1.030); Urine Bilirubin NEGATIVE (Negative); Urine Blood Negative (Negative); Urine Clarity Clear (Clear); Urine Color Light-Yellow (Yellow); Urine Glucose 1+ (Negative); Urine Protein NEGATIVE (Negative); Urine Urobilinogen 1+ (Normal); Urine pH 5.5 (5.0-7.0)
[2022-04-28 17:03] VITALS: TEMP 98.3
[2022-04-28 17:09] VITALS: BP 148/88; O2SAT 98
== END 2022-04-27 11:04 | disposition home or self-care (01) ==
LOC: ER 07:47
DX: M54.50 Low back pain, unspecified (principal); M25.552 Pain in left hip
CPT/HCPCS: 96365; 81003 ×2; 72131; 96375; 99284; 96366; J2930; J2800

== ENCOUNTER 2022-10-09 08:45 | Emergency (ER) | payer OTHER ==
[2012-03-01 08:30] VITALS: BP 154/97
[2022-10-09] MEDS ORDERED: LIDOCAINE 1% 20 ML MDV ONE (09:20)
--- OUTSIDE RECORDS SUMMARY | 2022-10-09 09:40 | XMS REPORT | Continuity of Care Document ---
:1960 Author Organization [facility] t Address [address] [place] [address] Care Team Providers Name Role Phone Gian Kimball MD, William Primary Care Physician [phone] ANN ALVAREZ Attending Clinician Unavailable BROWN BOJORQUEZ Attending Clinician Unavailable DAVID WOODS Attending Clinician Unavailable Vaccine, Ang Db Cbc Fam Attending Clinician Unavailable David Woods MD Attending Clinician JENNIFER LOUIE Attending Clinician Unavailable TORREY COMBS Attending Clinician Unavailable LAB47 Attending Clinician Unavailable Ann Alvarez MD Attending Clinician MD SORAIDA Attending Clinician Unavailable COVID-MODERNA [facility] Attending Clinician Unavail able ALYSHA ESQUEDA Attending Clinician Unavailable Doctor Unassigned, [place] Attending Clinician Unavailable Lab, Adc Fam Pob I Attending Clinician Unavailable Daysi Cardona Attending Clinician Haroldo-Mbayo_A_AH Attending Clinician Unavailable Haroldo-Mbayo_A_AH Admitting Clinician Unavailable Payers Payer Name Policy Type Policy Number Effective Date Expiration Date S pastora [employer] [place] 7 [id number] 2021 CLASSIC NO PREMIUM 00:00:00 R2[place] [id number] 2022 CLASSIC NO PREMIUM 00:00:00 H[place] [id number] 2020 00:00:00 [facility] [place] [id number] 2019 [place] 00:00:00 (MEDICARE REPLACEMENT/ADVANT AGE - HMO) Problems Condition Condition Condition Status Onset Resolution Last Treating Co mments Source Name Details Category Date Date Treatment Clinician Date DDD DDD Disease Active 2021-08 Yaneli (degenerat (degenerat 0-04 Se ybold chinyere disc chinyere disc 00:00: - disease), disease), 00 Exte rna lumbar lumbar l Obesity Obesity Disease Active Overview: Anjali lima 01-11 Formattin Seybold 00:00: g of this - note Externa might be l different from the original. Advising healthy diet and exercise with goal for 10-15% weight loss annuallyL ast Assessmen t & Plan: Formattin g of this note might be different from the original. 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 Diabetic with a1c > 8% resulting in immunosup pression. Last Assessmen t & Plan: Formattin g of this note might be different from the original. Unchanged - working on improving glycemic control Allergic Allergic Disease Active Overview: Kirt burns rhinitis rhinitis 01-11 Formattin Sey bold 00:00: g of this - note Externa might be l different from the original. On singulair Last [...] Active Overview: Yaneli diabetes diabetes 11-10 Formattin Sey bold mellitus mellitus 00:00: g of this - with with 00 note Externa microalbum microalbum might be l inuria, inuria, different without without from the [...] Active Overview: Anjali lima obesity obesity 11-10 Formatmark Delgado ld due to due to 00:00: g [...] Active Overview : Yaneli ia ia - Medhat Lieberman associated associated 00:00: g of this - with type with type 00 note Exte rna 2 diabetes 2 diabetes might be l mellitus mellitus different from the original. Goal [...] Essential Disease Active Overview: Yaneli hypertensi hypertensi 1-14 Formattin ybold on on 00:00: g of this - 00 note Externa might be l different from the original. Goal BP < 130/80On amlodipin e, coreg, lisinopri Monica PRN HYDRALAZI NE FOR SBP > 165Last Assessmen t & Plan: Formattin g of this note might be different from the original. Controlle d - c/w current meds/dose s Neck pain, Neck pain, Disease Active Overview : Yaneli chronic chronic 08-25 Formattin Seybo ld 00:00: g of note Externa might be l different from the original. S/p surgeryFo llowed in the past by [facility] mobicLast Assessmen t & Plan: Formattin g of this note might be different from the original. Controlle d Chronic Chronic Disease Active Overview: Anjali ey pain of pain of 08-25 Formattin Seybo ld left elbow left elbow 00:00: g of note Externa might be l different from the original. S/p surgeryFo llowed in the past by Dr. [facility] PR[facility] mobicLast Assessmen t & Plan: Formattin g of this note might be different from the original. Controlle d Dyslipidem Dyslipidem Disease Active Overview : Yaneli ia ia 08-25 Formattin Seybold 00:00: g of note Externa might be l different from the original. Goal LDL % reduction 50+%On Atorvasta tinLast Assessmen t & Plan: Formattin g of this note might be different from the original. Controlle d - c/w current med/dose Allergies, Adverse Reactions, Alerts Allergy Allergy Status Severity Reaction(s) Onset Inactive Treating Comm ents Source Name Type Date Date Clinician NO KNOWN Drug Active Univers ALLERGIE Class ity of S [facility] Family History Family Member Diagnosis Comments Start Date Stop Date Source Natural mother Diabetes [facility] Natural mother Heart disease [facility] Natural mother Hypertension [facility] Social History Social Habit Start Date Stop Date Quantity Comments Source Exposure to 2022-08-12 2022-08-22 Not sure University of SARS-CoV-2 00:00:00 07:03:00 [facility] [place] Tobacco use and 2020-08-25 2020-08-25 Smokeless tobacco Kirt Lieberman - exposure 00:00:00 00:00:00 non-user External Tobacco Comment 2020-08-25 2020-08-25 quit at age 20 Vicki Lieberman - 00:00:00 00:00:00 External Alcohol intake 2017-03-04 2017-03-04 Current [facility] 00:00:00 00:00:00 non-drinker of alcohol (finding) History of 1981-08-25 Smoker Yaneli Lieberman - tobacco use 00:00:00 External Sex Ass[birth year] At [birth year] [facility] 00:00:00 00:00:00 Smoking Status Start Date Stop Date Source Tobacco smoking [facility] consumption unknown Medical Bran ch Ex-smoker 2020-08-25 00:00:00 2020-08-25 Yaneli Delgado ld - 00:00:00 External Medications Ordered Filled Start Stop Current Ordering Indication Dosage Frequency Signature Comments Components Source Medication Medication Date Date Medication? Clinician (SIG) Name Name Gabapentin 2021-08 Yes 1 po q HS Ke lsey 300 MG oral 0-11 x 7 days, Sey bold Capsule 00:00: then 1 po - 00 BID x 7 Externa days, then l 1 po TID Baclofen 10 2021-08 Yes Half to 1 K elsey MG oral 0-11 tablet Seybold Tablet 00:00: p.o. 3 - 00 times Externa daily as l needed muscle spasms and pain Meloxicam Yes [id number] TAKE 1 Yaneli 15 MG oral 9-27 [id number] TABLET BY Se ybold Tablet 00:00: MOUTH - 00 EVERY DAY Externa NEEDED l FOR PAIN Meloxicam Yes [id number] TAKE 1 Yaneli 15 MG oral 9-27 [id number] TABLET BY Se ybold Tablet 00:00: MOUTH - 00 EVERY DAY Externa NEEDED l FOR PAIN Tramadol Yes 1{tbl} Q.[id number] Take 1 Yaneli HCl 50 MG 9-16 [id number] tablet by Seybold oral Tablet 00:00: 3D mouth - 00 every 8 Externa hours as l needed Ibuprofen Yes 600mg Q.25D Take 600 Ke lsey 600 MG oral 9-16 mg by Seybold Tablet 00:00: mouth - 00 every 6 Externa hours as l needed FOR PAIN Cyclobenzap Yes 10mg Q.[id number] Take 10 mg Yaneli rine HCl 10 9-16 [id number] by mouth Seybold MG oral 00:00: 3D every 8 - Tablet 00 hours as Externa needed l Tramadol Yes 1{tbl} Q.[id number] Take 1 Yaneli HCl 50 MG 9-16 [id number] tablet by Seybold oral Tablet 00:00: 3D mouth - 00 every 8 Externa hours as l needed Ibuprofen 0 Yes 600mg Q.25D Take 600 Ke lsey 600 MG oral 9-16 mg by Seybold Tablet 00:00: mouth - 00 every 6 Externa hours as l needed FOR PAIN Cyclobenzap 0 2021- No 10mg Q.[id number] Take 10 mg Yaneli rine HCl 10 9-16 10-11 [id number] by mouth Seybold MG oral 00:00: 00:00 3D every 8 - Tablet 00 :00 hours as Externa needed l Tdap Yes [id number] Administer Ke lsey (ADACEL) 602 one Seybold 5-2-15.5 00:00: - LF-MCG/0.5 00 Externa intramuscul l ar Suspension Tdap Yes [id number] Administer Ke lsey (ADACEL) 6-02 one Seybold 5-2-15.5 00:00: - LF-MCG/0.5 00 Externa intramuscul l ar Suspension Tdap Yes [id number] Administer Ke lsey (ADACEL) 602 one Seybold 5-2-15.5 00:00: LF-MCG/0.5 00 intramuscul ar Suspension Meloxicam Yes [id number] TAKE 1 Yaneli 15 MG oral 3-16 [id number] TABLET BY Se ybold Tablet 00:00: MOUTH 00 EVERY DAY NEEDED FOR PAIN Amlodipine Yes [id number] 10mg Take 1 K elsey Besylate 10 1-14 tablet (10 Se ybold MG oral 00:00: mg total) - Tablet 00 by mouth Externa daily l Atorvastati Yes [id number] 40mg Take 1 Yaneli n Calcium 1-14 tablet (40 Seyb old 40 MG oral 00:00: mg total) - Tablet 00 by mouth Externa daily l Carvedilol 2022-0 Yes [id number] 3.125mg Take 1 Yaneli 3.125 MG 1-14 tablet Seybold oral Tablet 00:00: (3.125 mg - 00 total) by Externa mouth 2 l times daily (with meals) Glimepiride 2021-0 Yes [id number] 2mg Take 1 Yaneli 2 MG oral 1-14 tablet (2 Seybo ld Tablet 00:00: mg total) - 00 by mouth Externa every l morning (before breakfast) Lisinopril 2021-0 Yes [id number] 10mg Take 1 K elsey 10 MG oral 1-14 tablet (10 Sey bold Tablet 00:00: mg total) - 00 by mouth Externa daily l Metformin 2021-0 Yes [id number] 1000mg Take 1 Yaneli HCl 1000 MG 1-14 tablet Seybol d oral Tablet 00:00: (1,000 mg - 00 total) by Externa mouth 2 l times daily (with meals) Amlodipine 0 Yes [id number] 10mg Take 1 K elsey Besylate 10 1-14 tablet (10 Se ybold MG oral 00:00: mg total) - Tablet 00 by mouth Externa daily l Atorvastati 0 Yes [id number] 40mg Take 1 Yaneli n Calcium 1-14 tablet (40 Seyb old 40 MG oral 00:00: mg total) - Tablet 00 by mouth Externa daily l Carvedilol 0 Yes [id number] 3.125mg Take 1 Yaneli 3.125 MG 1-14 tablet Seybold oral Tablet 00:00: (3.125 mg - 00 total) by Externa mouth 2 l times daily (with meals) Glimepiride 2021-0 Yes [id number] 2mg Take 1 Yaneli 2 MG oral 1-14 tablet (2 Seybo ld Tablet 00:00: mg total) - 00 by mouth Externa every l morning (before breakfast) Lisinopril 2021-0 Yes [id number] 10mg Take 1 K elsey 10 MG oral 1-14 tablet (10 Sey bold Tablet 00:00: mg total) - 00 by mouth Externa daily l Metformin 2021-0 Yes [id number] 1000mg Take 1 Yaneli HCl 1000 MG 1-14 tablet Seybol d oral Tablet 00:00: (1,000 mg - 00 total) by Externa mouth 2 l times daily (with meals) Amlodipine 0 Yes [id number] 10mg Take 1 K elsey Besylate 10 1-14 tablet (10 Se ybold MG oral 00:00: mg total) Tablet 00 by mouth daily Atorvastati 0 Yes [id number] 40mg Take 1 Yaneli n Calcium 1-14 tablet (40 Seyb old 40 MG oral 00:00: mg total) Tablet 00 by mouth daily Carvedilol 0 Yes [id number] 3.125mg Take 1 Yaneli 3.125 MG 1-14 tablet Seybold oral Tablet 00:00: (3.125 mg 00 total) by mouth 2 times daily (with meals) Glimepiride 0 Yes [id number] 2mg Take 1 Yaneli 2 MG oral 1-14 tablet (2 Seybo ld Tablet 00:00: mg total) 00 by mouth every morning (before breakfast) Lisinopril 0 Yes [id number] 10mg Take 1 K elsey 10 MG oral 1-14 tablet (10 Sey bold Tablet 00:00: mg total) 00 by mouth daily Metformin 0 Yes [id number] 1000mg Take 1 Yaneli HCl 1000 MG 1-14 tablet Seybol d oral Tablet 00:00: (1,000 mg 00 total) by mouth 2 times daily (with meals) Amlodipine 0 Yes [id number] 10mg Take 1 K elsey Besylate 10 1-14 tablet (10 Se ybold MG oral 00:00: mg total) Tablet 00 by mouth daily Atorvastati 0 Yes [id number] 40mg Take 1 Yaneli n Calcium 1-14 tablet (40 Seyb old 40 MG oral 00:00: mg total) Tablet 00 by mouth daily Carvedilol 0 Yes [id number] 3.125mg Take 1 Yaneli 3.125 MG 1-14 tablet Seybold oral Tablet 00:00: (3.125 mg 00 total) by mouth 2 times daily (with meals) Glimepiride 2021-0 Yes [id number] 2mg Take 1 Yaneli 2 MG oral 1-14 tablet (2 Seybo ld Tablet 00:00: mg total) 00 by mouth every morning (before breakfast) Lisinopril 2021-0 Yes [id number] 10mg Take 1 K elsey 10 MG oral 1-14 tablet (10 Sey bold Tablet 00:00: mg total) 00 by mouth daily Metformin Yes [id number] 1000mg Take 1 Yaneli HCl 1000 MG -14 tablet Seybol d oral Tablet 00:00: (1,000 mg 00 total) by mouth 2 times daily (with meals) Meloxicam 2020-08 Yes [id number] TAKE 1 Yaneli 15 MG oral 2 [id number] TABLET BY Se ybold Tablet 00:00: MOUTH 00 EVERY DAY NEEDED FOR PAIN Lisinopril 2020-08- No [id number] TAKE 1 Yaneli 10 MG oral 08-15 TABLET BY Sey bold Tablet 00:00: 00:00 MOUTH 00 :00 EVERY DAY Metformin 2021- No [id number] TAKE 1 K elsey HCl 1000 MG 02-15 TABLET BY Se ybold oral Tablet 00:00: 00:00 MOUTH 00 :00 TWICE A DAY WITH MEALS Carvedilol 2021- No [id number] TAKE 1 Yaneli 3.125 MG 18 08-25 TABLET BY Seybo ld oral Tablet 00:00: 00:00 MOUTH 00 :00 TWICE A DAY WITH MEALS Zoster Vac Yes [id number] One dose Yaneli Recomb 11-10 now. Seybold Adjuvanted 00:00: Second 50 00 dose given MCG/0.5ML two to six intramuscul months ar Recon AFTER Susp first dose. Zoster Vac 2021- No [id number] One dose Yaneli Recomb 11-10 06-02 now. Seybold Adjuvanted 00:00: 00:00 Second 50 00 :00 dose given MCG/0.5ML two to six intramuscul months ar Recon AFTER Susp first dose. Amlodipine 2021- No [id number] 10mg Take 1 Yaneli Besylate 10 11-10 tablet (10 S eybold MG oral 00:00: 00:00 mg total) Tablet 00 :00 by mouth daily Levocetiriz Yes 1{tbl} Take 1 Ke lsey ine 1-28 tablet by Seybold Dihydrochlo 00:00: mouth - ride 5 MG 00 every Externa oral Tablet evening l Montelukast Yes 1{tbl} Take 1 Ke lsey (SINGULAIR) 1-28 tablet by Sey bold 10 MG oral 00:00: mouth - Tablet 00 daily Externa tablet l Levocetiriz Yes 1{tbl} Take 1 Ke lsey ine 1-28 tablet by Seybold Dihydrochlo 00:00: mouth - ride 5 MG 00 every Externa oral Tablet evening l Montelukast Yes 1{tbl} Take 1 Ke lsey (SINGULAIR) 1-28 tablet by Sey bold 10 MG oral 00:00: mouth - Tablet 00 daily Externa tablet l Levocetiriz Yes 1{tbl} Take 1 Ke lsey [...] Tablet 00 daily tablet Atorvastati 2021- No [id number] 40mg Take 1 Yaneli n Calcium 08-25 tablet (40 Sey bold 40 MG oral 00:00: 00:00 mg total) Tab 00 :00 by mouth daily Glimepiride 2021- No [id number] 2mg Take 1 Yaneli 2 MG oral 08-25 tablet (2 Seyb old Tab 00:00: 00:00 mg total) 00 :00 by mouth every morning (before breakfast) hydrALAZINE Yes [id number] TAKE 1 Yaneli HCl 10 MG 1-02 TABLET BY Seybo ld oral Tab 00:00: MOUTH UP - 00 TO 3 TIMES Externa A DAY IF l SYSTOLIC BLOOD PRESSURE IS GREATER THAN 165 hydrALAZINE Yes [id number] TAKE 1 Yaneli HCl 10 MG 1-02 TABLET BY Seybo ld oral Tab 00:00: MOUTH UP - 00 TO 3 TIMES Externa A DAY IF l SYSTOLIC BLOOD PRESSURE IS GREATER THAN 165 hydrALAZINE 0 Yes [id number] TAKE 1 Yaneli HCl 10 MG 1-02 TABLET BY Seybo ld oral Tab 00:00: MOUTH UP 00 TO 3 TIMES A DAY IF SYSTOLIC BLOOD PRESSURE IS GREATER THAN 165 hydrALAZINE Yes [id number] TAKE 1 Yaneli HCl 10 MG 1-02 TABLET BY Seybo ld oral Tab 00:00: MOUTH UP 00 TO 3 TIMES A DAY IF SYSTOLIC BLOOD PRESSURE IS GREATER THAN 165 HYDROcodone 2019-08 Yes [id number] 1{tbl} Q8H Take 1 Yaneli -Acetaminop 2-29 [id number] tablet by [place] garcia 10-325 00:00: mouth MG oral Tab 00 every 8 hours as needed for pain HYDROcodone 2019-08- No [id number] 1{tbl} Q.[id number] Take 1 Yaneli -Acetaminop 2-29 -02 [id number] tablet by Luisana garcia 10-325 00:00: 00:00 3D mouth MG oral Tab 00 :00 every 8 hours as needed for pain carvedilol Yes 3.125mg Q.5D Take 1 Me thodi (COREG) 6-[address] 3.125 MG 00:00: (3.125 mg Hosp [facility] tablet 00 total) by l mouth 2 (two) times a day. amLODIPine 2018- Yes 5mg QD Take 1 Metho di (NORVASC) 5 6-05 tablet (5 st mg tablet 00:00: mg total) Hos jennifer 00 by mouth l daily. atorvastati 2017-0 Yes 40mg QD Take 1 Meth butch [...] 1 Metho di (PRINIVIL,Z 7-24 tablet (10 ESTRIL) 10 00:00: mg total) Ho spita mg tablet 00 by mouth l daily. lisinopril 2017-0 Yes 10mg QD Take 1 Metho di (PRINIVIL,Z 7-24 tablet (10 st ESTRIL) 10 00:00: mg total) Ho spita mg tablet 00 by mouth l daily. ONETOUCH 2017-0 Yes Method[facility] ULTRA TEST 7-18 st strip test 00:00: Hospita strips 00 l ONETOUCH 2017-0 Yes [facility] ULTRA TEST 7-18 st strip test 00:00: Hospita strips 00 l ONETOUCH 2017-0 Yes [facility] ULTRA TEST 7-18 st strip test 00:00: Hospita strips 00 l ONETOUCH 2017-0 Yes [facility] ULTRA TEST 7-18 st strip test 00:00: Hospita strips 00 l glimepiride 2017-0 Yes QD daily. Meth butch (AMARYL) 2 6-07 st MG tablet 00:00: Hospita 00 l metFORMIN 2017-0 Yes Q.5D 2 (two) Metho di (GLUCOPHAGE 6-[address] ) 500 mg 00:00: day. Hospita tablet 00 l glimepiride 2017-0 Yes QD daily. Meth butch (AMARYL) 2 6-07 st MG tablet 00:00: Hospita 00 l metFORMIN 2017-0 Yes Q.5D 2 (two) Metho di (GLUCOPHAGE 6-[address] ) 500 mg 00:00: day. Hospita tablet 00 l glimepiride 2017-0 Yes QD daily. Meth butch (AMARYL) 2 6-07 st MG tablet 00:00: Hospita 00 l metFORMIN 2017-0 Yes Q.5D 2 (two) Metho di (GLUCOPHAGE 6-[address] ) 500 mg 00:00: day. Hospita tablet 00 l glimepiride 2017-0 Yes QD daily. Meth butch (AMARYL) 2 6-07 st MG tablet 00:00: Hospita 00 l metFORMIN 2017-0 Yes Q.5D 2 (two) Metho di (GLUCOPHAGE 6-[address] ) 500 mg 00:00: day. Hospita tablet 00 l lancets 30 Yes USE TO Metho di gauge misc 5-[address] 00:00: GLUCOSE Hospita 00 TWICE l DAILY lancets 30 2017-0 Yes USE TO Metho di gauge misc 5-[address] 00:00: GLUCOSE Hospita 00 TWICE l DAILY lancets 2016- Yes USE TO Metho di gauge misc 5-[address] 00:00: GLUCOSE Hospita 00 TWICE l DAILY lancets 2016- Yes USE TO Metho di gauge misc 5-[address] 00:00: GLUCOSE Hospita 00 TWICE l DAILY Immunizations Ordered Immunization Filled Immunization Date Status Commen ts Source Name Name SARS-COV-2 COVID-19 2022-08-22 Completed [facility] of VACCINE 12 YRS+, 00:00:00 [facility] dical BIVALENT 0.5ML, IM, Branc h (MODERNA BOOSTER) Influenza Virus 2022-05-15 Completed Yaneli dumontold - Vaccine, age 6 months 00:00:00 Ext ernal and up Influenza Virus 2022-05-15 Completed Yaneli dumontold - Vaccine, age 6 months 00:00:00 Ext ernal and up Pneumococcal Vaccine, 2021-08-25 Completed [facility] child[facility] Seybold Polysaccharide 00:00:00 Pneumococcal Vaccine, 2021-08-25 Completed [facility]ai childs Seybold - Polysaccharide 00:00:00 External Pneumococcal Vaccine, 2021-08-25 Completed Shai childs Seybold - Polysaccharide 00:00:00 External Pneumococcal Vaccine, 2021-08-25 Completed Shai amadeo Seybold Polysaccharide 00:00:00 Covid-19 Vaccine 2021-07-11 Completed Yaneli baumann - Moderna (Spikevax), 00:00:00 Exter nal Mrna-lnp, Se Protein, Pf Covid-19 Vaccine 2021-07-11 Completed Yaneli baumann - Moderna (Spikevax), 00:00:00 Exter nal Mrna-lnp, Se Protein, Pf Covid-19 Vaccine 2021-07-11 Completed Yaneli baumann (Moderna), Mrna-lnp, 00:00:00 Se Protein, Pf, 100 Mcg/0.5ml,IM Covid-19 Vaccine 2021-07-11 Completed Yaneli baumann Moderna (Spikevax), 00:00:00 Mrna-lnp, Se Protein, Pf Influenza Virus 2021-07-07 Completed Yaneli manuel - Vaccine, No Preserv, 00:00:00 Exte rnal age 6 months and up Influenza Virus 2021-07-07 Completed Yaneli Sow ybold - Vaccine, No Preserv, 00:00:00 Exte rnal age 6 months and up Influenza Virus 2021-07-07 Completed Yaneli Sow ybold Vaccine, No Preserv, 00:00:00 age 6 months and up Influenza Virus 2021-07-07 Completed Yaneli Sow ybold Vaccine, No Preserv, 00:00:00 age 6 months and up Shingles IM 2021-03-02 Completed Yaneli Seybol d - (Shingrix) 00:00:00 External Shingles IM 2021-03-02 Completed Yaneli Seybol d - (Shingrix) 00:00:00 External Shingles IM 2021-03-02 Completed Yaneli Seybol d (Shingrix) 00:00:00 Shingles IM 2021-03-02 Completed Yaneli Seybol d (Shingrix) 00:00:00 Shingles IM 2020-11-10 Completed Yaneli Seybol d - (Shingrix) 00:00:00 External Shingles IM 2020-11-10 Completed Yaneli Seybol d - (Shingrix) 00:00:00 External Shingles IM 2020-11-10 Completed Yaneli Seybol d (Shingrix) 00:00:00 Shingles IM 2020-11-10 Completed Yaneli Seybol d (Shingrix) 00:00:00 SARS-COV-2 COVID-19 2020-10-16 [facility] 12+ Y[facility] 00:00:00 [facility] VACCINE Branch Covid-19 Vaccine 2020-10-16 Completed Yaneli baumann - Moderna (Spikevax), 00:00:00 Exter nal Mrna-lnp, Se Protein, Pf Covid-19 Vaccine 2020-10-16 Completed Yaneli Niño eydebi - Moderna (Spikevax), 00:00:00 Exter nal Mrna-lnp, Se Protein, Pf Covid-19 Vaccine 2020-10-16 Completed Yaneli baumann (Moderna), Mrna-lnp, 00:00:00 Se Protein, Pf, 100 Mcg/0.5ml,IM Covid-19 Vaccine 2020-10-16 Completed Yaneli baumann Moderna (Spikevax), 00:00:00 Mrna-lnp, Se Protein, Pf SARS-COV-2 COVID-19 2020-10-16 Completed Unive rsity of MODERNA VACCINE 00:00:00 [facility] SARS-COV-2 COVID-19 2020-09-18 Completed Unive rsity of MODERNA VACCINE 00:00:00 [facility] SARS-COV-2 COVID-19 2020-09-18 Completed Unive rsity of MODERNA 12+ YRS 00:00:00 [facility] Branch Covid-19 Vaccine 2020-09-18 Completed Yaneli baumann - Moderna (Spikevax), 00:00:00 Exter nal Mrna-lnp, Se Protein, Pf Covid-19 Vaccine 2020-09-18 Completed Yaneli baumann - Moderna (Spikevax), 00:00:00 Exter nal Mrna-lnp, Se Protein, Pf Covid-19 Vaccine 2020-09-18 Completed Yaneli baumann (Moderna), Mrna-lnp, 00:00:00 Se Protein, Pf, 100 Mcg/0.5ml,IM Covid-19 Vaccine 2020-09-18 Completed Yaneli baumann Moderna (Spikevax), 00:00:00 Mrna-lnp, Se Protein, Pf Vital Signs Vital Name Observation Time Observation Value Comments Source Body height 2022-05-22 15:05:00 172.7 cm Yaneli baumann - External Body weight 2022-05-22 15:05:00 93.078 kg Yaneli baumann - External BMI 2022-05-22 15:05:00 31.20 kg/m2 Yaneli baumann - External Systolic blood 2022-05-15 20:25:00 126 mm[Hg] Yaneli Lieberman - pressure External Diastolic blood 2022-05-15 20:25:00 74 mm[Hg] Vicki Lieberman - pressure External Heart rate 2022-05-15 20:25:00 76 /min Yaneli baumann - External Body temperature 2022-05-15 20:25:00 36.83 Blanca Anjali ey Seybold - External Respiratory rate 2022-05-15 20:25:00 16 /min Anjali ey Seybold - External Body height 2022-05-15 20:25:00 170.2 cm Yaneli S eybold - External Body weight 2022-05-15 20:25:00 88.905 kg Yaneli S eybold - External BMI 2022-05-15 20:25:00 30.70 kg/m2 Yaneli S eybold - External Systolic blood 2022-01-11 19:46:00 120 mm[Hg] Yaneli Seybold pressure Diastolic blood 2022-01-11 19:46:00 70 mm[Hg] Kelse [...] 31.20 kg/m2 Yaneli S eybold Systolic blood 2021-08-25 20:13:00 128 mm[Hg] Yaneli Seybold pressure Diastolic blood 2021-08-25 20:13:00 74 mm[Hg] Kelse y Seybold pressure Heart rate 2021-08-25 20:13:00 80 /min Yaneli S eybold Body temperature 2021-08-25 20:13:00 36.72 Blanca Anjali ey Seybold Respiratory rate 2021-08-25 20:13:00 16 /min Anjali ey Seybold Body height 2021-08-25 20:13:00 172.7 cm Yaneli S eybold Body weight 2021-08-25 20:13:00 91.445 kg Yaneli S eybold BMI 2021-08-25 20:13:00 30.65 kg/m2 Yaneli S eybold Procedures Procedure Date / Time Performing Clinician Source Performed SARS-COV-2 COVID-19 2022-08-22 20:02:49 Doctor Unassigned, No [facility] [place] [facility] 12 [facility] Name Medical [facility] BIVALENT 0.5ML, IM (MODERNA BOOSTER) AUTHORIZATION FOR 2020-12-29 05:01:00 Doctor Unassigned, No [facility] [place] RELEASE OF PHI Name Medical [facility] Plan of Care Planned Activity Planned Date Details Comments Source Future Scheduled 2022-07-28 [facility] 04:16:40 [code = COVID-19 VACCINE (#1)] Future Scheduled 2022-07-28 COLONOSCOPY SCREENING [facility] Test 04:16:40 [code = COLONOSCOPY SCREENING] Future Scheduled 2022-07-28 SHINGLES VACCINES (1 [facility] Test 04:16:40 of 2) [code = SHINGLES VACCINES (1 of 2)] Future Scheduled 2022-07-28 INFLUENZA VACCINE [facility] 04:16:40 [code = INFLUENZA VACCINE] Future Scheduled 2022-04-13 HEPATITIS B VACCINES [facility] Test 11:29:54 (1 of 3 - 3-dose series) [code = HEPATITIS B VACCINES (1 of 3 - 3-dose series)] Future Scheduled 2022-04-13 COVID-19 VACCINE (#1) [facility] Test 11:29:54 [code = COVID-19 VACCINE (#1)] Future Scheduled 2022-04-13 COLONOSCOPY SCREENING [facility] Test 11:29:54 [code = COLONOSCOPY SCREENING] Future Scheduled 2022-04-13 [facility]:29:54 of 2) [code = SHINGLES VACCINES (1 of 2)] Future Scheduled 2022-04-13 INFLUENZA VACCINE [facility] 11:29:54 [code = INFLUENZA VACCINE] Future Scheduled 2022-04-06 [facility]:50:10 (1 of 3 - 3-dose series) [code = HEPATITIS B VACCINES (1 of 3 - 3-dose series)] Future Scheduled 2022-04-06 COVID-19 VACCINE (#1) [facility] Test 16:50:10 [code = COVID-19 VACCINE (#1)] Future Scheduled 2022-04-06 [facility]CREENING [facility] 16:50:10 [code = COLONOSCOPY SCREENING] Future Scheduled 2022-04-06 SHINGLES VACCINES (1 Met [facility] Test 16:50:10 of 2) [code = SHINGLES VACCINES (1 of 2)] Future Scheduled 2022-04-06 INFLUENZA VACCINE [facility] 16:50:10 [code = INFLUENZA VACCINE] Future Scheduled 2022-04-06 HEPATITIS B VACCINES Met [facility] Test 16:50:10 (1 of 3 - 3-dose series) [code = HEPATITIS B VACCINES (1 of 3 - 3-dose series)] Future Scheduled 2022-04-06 COVID-19 VACCINE (#1) [facility] Test 16:50:10 [code = COVID-19 VACCINE (#1)] Future Scheduled 2022-04-06 COLONOSCOPY SCREENING [facility] Test 16:50:10 [code = COLONOSCOPY SCREENING] Future Scheduled 2022-04-06 SHINGLES VACCINES (1 Met [facility] Test 16:50:10 of 2) [code = SHINGLES VACCINES (1 of 2)] Future Scheduled 2022-04-06 INFLUENZA VACCINE [facility] Test 16:50:10 [code = INFLUENZA VACCINE] Encounters Start End Encounter Admission Attending Care Care Encounter Source Date/Time Date/Time Type Type Clinicians Facility Department ID 2022-10-04 2022-10-04 Outpatient YANELI ALVAREZ [id number] [place] 15:00:00 15:00:00 ANN Seybol d 2022-09-26 2022-09-26 Outpatient YANELI ALVAREZ [id number] [place] 00:00:00 00:00:00 ANN Seybol d 2022-09-13 2022-09-13 Outpatient YANELI ALVAREZ [id number] [place] 00:00:00 00:00:00 ANN Seybol d 2022-08-31 2022-08-31 Outpatient BROWN BOJORQUEZ [id number] [place] 00:00:00 00:00:00 Seybol emily 2022-08-22 2022-08-22 Outpatient Phil WOODS [facility] [id number] Univers 13:40:00 14:15:06 DAVID stoner [facility] 2022-08-22 2022-08-22 Imm/Inj Vaccine, Ang Db Cbc Fam [facility] [id number]. [id number] Univers 13:40:00 13:50:00 Visit David Woods [id number] herbie [facility] [id number] Lon as ROGER?BLEA [id number] Md chelsiefiliberto [address] MEDICAL OFFICE BUILDING 2022-08-19 2022-08-19 Outpatient YANELI ALVAREZ [id number] [place] 00:00:00 00:00:00 ANN Seybol d 2022-07-30 2022-07-30 Outpatient BOJORQUEZBROWN [id number] [place] 09:30:00 09:30:00 Seybol d 2022-05-31 2022-05-31 Outpatient SAYANELI TURNER [id number] [place] 13:30:00 13:30:00 ANN Seybol d 2022-05-25 2022-05-25 Outpatient JACYJENNIFER [id number] [place] 14:00:00 14:00:00 Seybol d 2022-05-24 2022-05-24 Outpatient YANELI ALVAREZ [id number] [place] 00:00:00 00:00:00 ANN Seybol d 2022-05-22 2022-05-22 Outpatient YANELI FREEMAN [id number] [place] 10:50:00 10:50:00 Seybol d 2022-05-22 2022-05-22 Outpatient RENO TYSONADRIEL FREEMAN [id number] [place] 10:30:00 10:30:00 Seybol d 2022-05-17 2022-05-17 Outpatient COMBSTORREY [id number] [place] 13:45:00 13:45:00 Seybol d 2022-05-16 2022-05-16 Outpatient YANELI ALVAREZ [id number] [place] 00:00:00 00:00:00 ANN Seybol d 2022-05-16 2022-05-16 Outpatient YANELI ALVAREZ [id number] [place] 00:00:00 00:00:00 ANN Seybol d 2022-05-15 2022-05-15 Outpatient LAB47 YANELI FREEMAN [id number] [place] 17:00:00 17:00:00 Seybol d 2022-05-15 2022-05-15 Outpatient SAYANELI TURNER [id number] [place] 16:30:00 16:30:00 ANN Seybol d 2022-05-15 2022-05-15 Outpatient YANELI FREEMAN [id number] [place] 16:05:00 16:05:00 Seybol d 2022-05-15 2022-05-15 Outpatient SAYANELI TURNER [id number] [place] 00:00:00 00:00:00 ANN Seybol d 2022-02-19 2022-02-19 Outpatient SAYANELI TURNER [id number] [place] 00:00:00 00:00:00 ANN Seybol d 2022-01-11 2022-01-11 Outpatient LAB47 YANELI FREEMAN [id number] [place] 15:50:00 15:50:00 Seybol d 2022-01-11 2022-01-11 Office MARTINA Alvarez [id number] [place] 14:30:00 15:15:00 Visit Ann Mitchell [id number] S ibis [id number] 2021-12-26 2021-12-26 Outpatient DIANASEYONL YANELI FREEMAN [id number] [place] 00:00:00 00:00:00 MD ADITHYA Seybol d 2021-12-13 2021-12-13 Outpatient SAYANELI TURNER [id number] [place] 10:45:00 10:45:00 ANN Seybol d 2021-10-25 2021-10-25 Outpatient YANELI ALVAREZ [id number] Y[place]il 00:00:00 00:00:00 ANN Seybol d 2021-08-25 2021-08-25 Outpatient LAB47 YANELI FREEMAN [id number] [place] 15:05:00 15:05:00 Seybol d 2021-08-25 2021-08-25 Office RussellMARTINA [id number] [place] 14:15:00 14:30:00 Visit Ann Mitchell [id number] S ibis [id number] 2021-07-13 2021-07-13 Outpatient YANELI ALVAREZ [id number] [place] 00:00:00 00:00:00 ANN Seybol d 2021-07-11 2021-07-11 Outpatient COVID-MODER YANELI FREEMAN [id number] [place] 13:30:00 13:30:00 NA Se mar ROBLES 2021-05-31 2021-05-31 Outpatient YANELI ALVAREZ [id number] [place] 00:00:00 00:00:00 ANN Seybol d 2021-04-26 2021-04-26 Outpatient YANELI ALVAREZ [id number] [place] 00:00:00 00:00:00 ANN Seybol d 2021-03-12 2021-03-12 Outpatient YANELI ALVAREZ [id number] [place] 00:00:00 00:00:00 ANN Seybol d 2021-03-02 2021-03-02 Outpatient YANELI ALVAREZ [id number] [place] 00:00:00 00:00:00 ANN Seybol d 2021-03-01 2021-03-01 Outpatient YANELI ESQUEDA [id number] [place] 10:00:00 10:00:00 ALYSHA Seybol d 2020-12-29 2020-12-29 Orders Doctor STERLING [id number] Univers 00:00:00 00:00:00 Only Unassigned, LOBO [id number] [facility] [id number] Lon as [id number] [address] 2020-10-16 2020-10-16 Outpatient [facility] [id number] Univers 14:55:00 14:55:00 ity of [facility] 2020-09-18 2020-09-18 Outpatient [facility] [id number] Univers 14:50:00 14:50:00 ity [facility] 2020-04-08 2020-04-08 Laboratory Lab, Adc Fam Pob I [facility] [id number] Univers 16:50:31 17:10:31 [facility] [id number] it[facility] [id number] Lon as Professio [id number] Md dical [address] Office [address] 2020-04-08 2020-04-08 Outpatient R [facility] [id number] Univers 16:40:00 16:40:00 ity [facility] 2019-10-08 2019-10-08 Outpatient Haroldo-Mbayo VFP VFP [address] [place] [address] 05:55:00 05:55:00 _A_AH [id number] Family Practic e 2019-10-08 2019-10-08 Outpatient Haroldo-Mbayo VFP VFP [address] [place] [address] 05:55:00 05:55:00 _A_AH [id number] Family Practic e Results This patient has no known results.
--- NOTE | 2022-10-09 10:07 | ER ---
Nurse's Notes [facility] Name: Alexandru Galan Age: 62 yrs Sex: Male : 1960 Arrival Date: 10/09/2022 Time: 08:48 Bed 18 Private MD: Diagnosis: Sebaceous cyst-Infected sebaceous cyst , left posterior back, initial encounter ;abscess of sebaceous cyst, cutaneous abscess, initial encounter Presentation: 10/09 09:05 Chief complaint: Patient states: lump to back that began weeks ago. Denies pain at this ss time. Is tender when it brushes it up against something. Coronavirus screen: Client denies travel out of the [place] in the last 14 days. Ebola Screen: Patient denies exposure to infectious person. Patient denies travel to an Ebola-affected area in the 21 days before illness onset. Initial Sepsis Screen: Does the patient meet any 2 criteria? No. Patient's initial sepsis screen is negative. Does the patient have a suspected source of infection? No. Patient's initial sepsis screen is negative. Risk Assessment: Do you want to hurt yourself or someone else? Patient reports no desire to harm self or others. Onset of symptoms is unknown. 09:05 Method Of Arrival: Ambulatory ss 09:05 Acuity: NACHO 4 ss Historical: - Allergies: 09:08 NKDA; ss - PMHx: 09:08 Diabetes - NIDDM; Hypertension; ss - PSHx: 09:08 Neck sx; ss - Immunization history:: Client reports receiving the 2nd dose of the Covid vaccine. - Social history:: Smoking status: Patient denies any tobacco usage or history of. - Family history:: not pertinent. - Hospitalizations: : No recent hospitalization is reported. Screenin:15 [facility] ED Fall Risk Assessment (Adult) History of falling in the last 3 months, ko1 including since admission No falls in past 3 months (0 pts) Confusion or Disorientation No (0 pts) Intoxicated or Sedated No (0 pts) Impaired Gait No (0 pts) Mobility Assist Device Used No (0 pt) Altered Elimination No (0 pt) Score/Fall Risk Level 0 - 2 = Low Risk Oriented to surroundings, Maintained a safe environment, Educated pt \T\ family on fall prevention, incl call for assistance when getting out of bed, Assessed \T\ reinforced patient's understanding of fall precautions, Provided non-skid footwear, Hourly rounding (assess needs \T\ fall precautionary measures) done, Used ambulatory aids as needed (educated on \T\ assisted with), Used gait belt as appropriate. Abuse screen: Denies threats or abuse. Denies injuries from another. Nutritional screening: No deficits noted. Tuberculosis screening: No symptoms or risk factors identified. Assessment: 09:15 General: Appears in no apparent distress. comfortable, Behavior is calm, cooperative, ko1 appropriate for age. Pain: Complains of pain in back. Neuro: No deficits noted. Cardiovascular: No deficits noted. Respiratory: No deficits noted. GI: No deficits noted. : No deficits noted. EENT: No deficits noted. Derm: Abscess located on back. Musculoskeletal: No deficits noted. Vital Signs: 09:05 BP 127 / 78; Pulse 78; Resp 17; Temp 97.8(O); Pulse Ox 98% on R/A; Height 5 ft. 8 in. ss (172.72 cm); Pain 0/10; 10:09 BP 132 / 74; Pulse 80; Resp 16; Pulse Ox 99% on R/A; ko1 ED Course: 08:48 Patient arrived in ED. am2 09:03 Niru Avina, MICHEAL is Primary Nurse. ko1 09:03 Polo San MD is Attending Physician. rn 09:05 Attending Physician role handed off by Polo San MD sp4 09:05 Eric Castellano MD is Attending Physician. sp4 09:08 Triage completed. ss 09:08 Arm band placed on right wrist. ss 09:15 Patient has correct armband on for positive identification. Placed in gown. Bed in low ko1 position. Call light in reach. Client placed on continuous cardiac and pulse oximetry monitoring. NIBP monitoring applied. radiation monitor on. 09:15 Patient did not have IV access during this emergency room visit. ko1 10:17 Assist provider with I \T\ D: of an abscess on sebaceous cyst on back Set up I\T\D tray. ko 1 Performed by Eric Castellano MD Dressing with 4X4s, tape Patient tolerated well. Administered Medications: 09:56 Drug: Lidocaine (1 %) 1 vials Volume: 20 ml; Route: Infiltration; ko1 10:14 Follow up: Response: No adverse reaction ko1 Medication: 09:15 VIS not applicable for this client. ko1 Outcome: 10:06 Discharge ordered by . sp4 10:17 Discharged to home ambulatory, with family. ko1 10:17 Condition: good 10:17 Discharge instructions given to patient, family, Instructed on discharge instructions, follow up and referral plans. medication usage, wound care, Demonstrated understanding of instructions, follow-up care, medications, wound care. 10:21 Patient left the ED. ko1 Signatures: Polo San MD MD rn Smirch, Shelby RN RN Malathi Alvarez Kathy, RN RN ko1 Eric Castellano MD MD sp4
--- NOTE | 2022-10-09 10:07 | EDPHYS ---
Physician Documentation [facility] Name: Alexandru Galan Age: 62 yrs Sex: Male : 1960 Arrival Date: 10/09/2022 Time: 08:48 Bed 18 Private MD: ED Physician Eric Castellano HPI: 10/09 10:08 This 62 yrs old Black Male presents to ER via Ambulatory with complaints of Skin sp4 Problem, Boil. 09:08 the patient presents with a swollen area of the back. 62 year old male presents with sp4 left mid back sebaceus cyst that became painful and swollen today and is now bothersome . Historical: - Allergies: 09:08 NKDA; ss - PMHx: 09:08 Diabetes - NIDDM; Hypertension; ss - PSHx: 09:08 Neck sx; ss - Immunization history:: Client reports receiving the 2nd dose of the Covid vaccine. - Social history:: Smoking status: Patient denies any tobacco usage or history of. - Family history:: not pertinent. - Hospitalizations: : No recent hospitalization is reported. ROS: 09:08 Constitutional: Negative for fever, chills, and weight loss, Eyes: Negative for injury, sp4 pain, redness, and discharge, ENT: Negative for injury, pain, and discharge, Neck: Negative for injury, pain, and swelling, Cardiovascular: Negative for chest pain, palpitations, and edema, Respiratory: Negative for shortness of breath, cough, wheezing, and pleuritic chest pain, Abdomen/GI: Negative for abdominal pain, nausea, vomiting, diarrhea, and constipation, Back: There is left mid back sebaceous cyst that is moderate in size and appears infected Negative for injury and pain, : Negative for injury, bleeding, discharge, and swelling, MS/Extremity: Negative for injury and deformity, Skin: Negative for injury, there is sebaceous cyst - see back exam Neuro: Negative for headache, weakness, numbness, tingling, and seizure, Psych: Negative for depression, anxiety, suicide ideation, homicidal ideation, and hallucinations, Allergy/Immunology: Negative for hives, rash, and allergies, Endocrine: Negative for neck swelling, polydipsia, polyuria, polyphagia, and marked weight changes, Hematologic/Lymphatic: Negative for swollen nodes, abnormal bleeding, and unusual bruising. Exam: 09:08 Constitutional: This is a well developed, well nourished patient who is awake, alert, sp4 and in no acute distress. Head/Face: Normocephalic, atraumatic. Eyes: Pupils equal round and reactive to light, extra-ocular motions intact. Lids and lashes normal. Conjunctiva and sclera are non-icteric and not injected. Cornea within normal limits. Periorbital areas with no swelling, redness, or edema. Back: No spinal tenderness. No costovertebral tenderness. Full range of motion. There is infected mid thoracic sebaceous cyst that is moderate in size Skin: Warm, dry with normal turgor. Normal color with no rashes, Mid back infected sebaceous cyst , and no evidence of cellulitis. Vital Signs: 09:05 BP 127 / 78; Pulse 78; Resp 17; Temp 97.8(O); Pulse Ox 98% on R/A; Height 5 ft. 8 in. ss (172.72 cm); Pain 0/10; 10:09 BP 132 / 74; Pulse 80; Resp 16; Pulse Ox 99% on R/A; ko1 Procedures: 09:59 I \T\ D: Incision and drainage was performed for an abscess of the left back Prepped with sp4 Betadine, Anesthetized with 20 ml's 1% Lidocaine. Incised with #11 blade. Drained moderate amount purulent fluid. sebaceous material Packed with no packing . Dressing: sterile 4x4 gauze, Tegaderm dressing the patient tolerated the procedure well, No complications , Cavity was sutured with 4-0 Prolene sutures total 4 sutures , Patient advised to remove sutures in 14 days . MDM: 09:03 Patient medically screened. rn 09:59 Differential diagnosis: Infected sebaceous cyst . I considered the following discharge sp4 prescriptions or medication management in the emergency department I discussed and recommended Over The Counter medications. I considered the following discharge prescriptions or medication management in the emergency department I discussed and recommended Over The Counter medications. Counseling: I had a detailed discussion with the patient and/or guardian regarding: the historical points, exam findings, and any diagnostic results supporting the discharge/admit diagnosis. Response to treatment: the patient's symptoms have markedly improved after treatment. ED course: Sebaceous cyst drained, Cavity sutured . 10:08 Data reviewed: vital signs, nurses notes, old medical records. sp4 10/09 09:07 Order name: Suture Tray at Bedside; Complete Time: 09:17 sp4 10/09 09:07 Order name: Dressing - Wound; Complete Time: : sp4 10/09 09:07 Order name: Gloves, Sterile; Complete Time: :17 sp4 Administered Medications: 09:56 Drug: Lidocaine (1 %) 1 vials Volume: 20 ml; Route: Infiltration; ko1 10:14 Follow up: Response: No adverse reaction ko1 Disposition Summary: 10/09/22 10:06 Discharge Ordered Location: Home sp4 Problem: new sp4 Symptoms: are resolved sp4 Condition: Stable sp4 Diagnosis - Sebaceous cyst - Infected sebaceous cyst , left posterior back, initial encounter sp4 - abscess of sebaceous cyst, cutaneous abscess, initial encounter sp4 Followup: sp4 - With: Private Physician - When: 10 - 14 days - Reason: Discharge Instructions: - Discharge Summary Sheet sp4 - Epidermal Cyst Removal, Care After sp4 Forms: - Medication Reconciliation Form sp4 - Thank You Letter sp4 - Antibiotic Education sp4 - Prescription Opioid Use sp4 Signatures: Polo San MD MD rn Smirch, Shelby, RN RN ss Niru Avina RN RN ko1 Eric Castellano MD MD sp4
== END 2022-10-09 10:21 | disposition home or self-care (01) ==
LOC: ER 08:45
PROC: 0H96XZZ Drainage of Back Skin, External Approach (ICD-10-PCS; principal; 2022-10-09)
DX: L72.3 Sebaceous cyst (principal); L08.9 Local infection of the skin and subcutaneous tissue, unspecified
CPT/HCPCS: 99284; 10060; J2001

== ENCOUNTER 2022-10-31 09:02 | Emergency (ER) | payer OTHER ==
--- OUTSIDE RECORDS SUMMARY | 2022-10-31 09:07 | XMS REPORT | Continuity of Care Document ---
:1960 Author Organization [facility] t Address [address] [facility] [address] [place] [address] Care Team Providers Name Role Phone Gian Kimball MD, William Primary Care Physician [phone] ANN ALVAREZ Attending Clinician Unavailable BROWN BOJORQUEZ Attending Clinician Unavailable DAVID WOODS Attending Clinician Unavailable Vaccine, Ang Db Cbc Fam Attending Clinician Unavailable David Woods MD Attending Clinician JENNIFER LOUIE Attending Clinician Unavailable TORREY COMBS Attending Clinician Unavailable LAB47 Attending Clinician Unavailable Ann Alvarez MD Attending Clinician MD SORAIDA Attending Clinician Unavailable COVID-MODERNA [facility] Attending Clinician Unavail able ALYSHA ESQUEDA Attending Clinician Unavailable Doctor Unassigned, [place] Attending Clinician Unavailable Lab, Adc Fam Pob I Attending Clinician Unavailable Daysi Cardona Attending Clinician Haroldo-Mbayo_A_AH Attending Clinician Unavailable Haroldo-Mbayo_A_AH Admitting Clinician Unavailable Payers Payer Name Policy Type Policy Number Effective Date Expiration Date S pastora WELL[employer]ARE [place] [id number] 2021 CLASSIC NO PREMIUM 00:00:00 R2T [place] [id number] 2022 CLASSIC NO PREMIUM 00:00:00 HMO [place] [id number] 2020 00:00:00 [facility] [place] [id number] 2019 [place] 00:00:00 (MEDICARE REPLACEMENT/ADVANT AGE - HMO) Problems Condition Condition Condition Status Onset Resolution Last Treating Co mments Source Name Details Category Date Date Treatment Clinician Date DDD DDD Disease Active 2021-08 Yaneli (degenerat (degenerat 0-04 Se ybold chinyere disc chinyere disc 00:00: - disease), disease), 00 Exte rna lumbar lumbar l Obesity Obesity Disease Active Overview: Anjali ilma 01-11 Formattin Seybold 00:00: g of this [...] of this - diabetes diabetes 00 note 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 be l different from the [...] Active Univers ALLERGIE Class ity of S [facility] Family History Family Member Diagnosis Comments Start Date Stop Date Source Natural mother Diabetes [facility] Natural mother Heart disease [facility] Natural mother Hypertension [facility] Social History Social Habit Start Date Stop Date Quantity Comments Source Exposure to 2022-08-12 2022-08-22 Not sure University of SARS-CoV-2 00:00:00 07:03:00 [facility] [place] Tobacco use and 2020-08-25 2020-08-25 Smokeless tobacco [...] Start Date Stop Date Source Tobacco smoking [facility] xa consumption unknown Medical Bran ch Ex-smoker [...] needed muscle spasms and pain Meloxicam Yes [id number] TAKE 1 Yaneli 15 MG oral 9-27 [id number] TABLET BY Se ybold Tablet 00:00: MOUTH - 00 EVERY DAY Externa NEEDED l FOR PAIN Meloxicam Yes [id number] TAKE 1 Yaneli 15 MG oral 9-27 [id number] TABLET BY Se ybold Tablet 00:00: MOUTH - 00 EVERY DAY Externa NEEDED l FOR PAIN Tramadol Yes 1{tbl} Q.[id number] Take 1 Yaneli HCl 50 MG 9-16 [id number] tablet by Seybold oral Tablet 00:00: 3D mouth - 00 every 8 Externa hours as l needed Ibuprofen Yes 600mg Q.25D Take 600 Ke lsey 600 MG oral 9-16 mg by Seybold Tablet 00:00: mouth - 00 every 6 Externa hours as l needed FOR PAIN Cyclobenzap Yes 10mg Q.[id number] Take 10 mg Yaneli rine HCl 10 9-16 [id number] by mouth Seybold MG oral 00:00: 3D every 8 - Tablet 00 hours as Externa needed l Tramadol Yes 1{tbl} Q.[id number] Take 1 Yaneli HCl 50 MG 9-16 [id number] tablet by Seybold oral Tablet 00:00: 3D mouth - 00 every 8 Externa hours as l needed Ibuprofen 0 Yes 600mg Q.25D Take 600 Ke lsey 600 MG oral 9-16 mg by Seybold Tablet 00:00: mouth - 00 every 6 Externa hours as l needed FOR PAIN Cyclobenzap 0 2021- No 10mg Q.[id number] Take 10 mg Yaneli rine HCl 10 9-16 10-11 [id number] by mouth Seybold MG oral 00:00: 00:00 3D every 8 - Tablet 00 :00 hours as Externa needed l Tdap Yes [id number] Administer Ke lsey (ADACEL) 602 one Seybold 5-2-15.5 00:00: - LF-MCG/0.5 00 Externa intramuscul l ar Suspension Tdap Yes [id number] Administer Ke lsey (ADACEL) 6-02 one Seybold 5-2-15.5 00:00: - LF-MCG/0.5 00 Externa intramuscul l ar Suspension Tdap Yes [id number] Administer Ke lsey (ADACEL) 602 one Seybold 5-2-15.5 00:00: LF-MCG/0.5 00 intramuscul ar Suspension Meloxicam Yes [id number] TAKE 1 Yaneli 15 MG oral 3-16 [id number] TABLET BY Se ybold Tablet 00:00: MOUTH 00 EVERY DAY NEEDED FOR PAIN Amlodipine Yes [id number] 10mg Take 1 K elsey Besylate 10 1-14 tablet (10 Se ybold MG oral 00:00: mg total) - Tablet 00 by mouth Externa daily l Atorvastati Yes [id number] 40mg Take 1 Yaneli n Calcium 1-14 tablet (40 Seyb old 40 MG oral 00:00: mg total) - Tablet 00 by mouth Externa daily l Carvedilol 2022-0 Yes [id number] 3.125mg Take 1 Yaneli 3.125 MG 1-14 tablet Seybold oral Tablet 00:00: (3.125 mg - 00 total) by Externa mouth 2 l times daily (with meals) Glimepiride 2021-0 Yes [id number] 2mg Take 1 Yaneli 2 MG oral 1-14 tablet (2 Seybo ld Tablet 00:00: mg total) - 00 by mouth Externa every l morning (before breakfast) Lisinopril 2021-0 Yes [id number] 10mg Take 1 K elsey 10 MG oral 1-14 tablet (10 Sey bold Tablet 00:00: mg total) - 00 by mouth Externa daily l Metformin 2021-0 Yes [id number] 1000mg Take 1 Yaneli HCl 1000 MG 1-14 tablet Seybol d oral Tablet 00:00: (1,000 mg - 00 total) by Externa mouth 2 l times daily (with meals) Amlodipine 0 Yes [id number] 10mg Take 1 K elsey Besylate 10 1-14 tablet (10 Se ybold MG oral 00:00: mg total) - Tablet 00 by mouth Externa daily l Atorvastati 0 Yes [id number] 40mg Take 1 Yaneli n Calcium 1-14 tablet (40 Seyb old 40 MG oral 00:00: mg total) - Tablet 00 by mouth Externa daily l Carvedilol 0 Yes [id number] 3.125mg Take 1 Yaneli 3.125 MG 1-14 tablet Seybold oral Tablet 00:00: (3.125 mg - 00 total) by Externa mouth 2 l times daily (with meals) Glimepiride 2021-0 Yes [id number] 2mg Take 1 Yaneli 2 MG oral 1-14 tablet (2 Seybo ld Tablet 00:00: mg total) - 00 by mouth Externa every l morning (before breakfast) Lisinopril 2021-0 Yes [id number] 10mg Take 1 K elsey 10 MG oral 1-14 tablet (10 Sey bold Tablet 00:00: mg total) - 00 by mouth Externa daily l Metformin 2021-0 Yes [id number] 1000mg Take 1 Yaneli HCl 1000 MG 1-14 tablet Seybol d oral Tablet 00:00: (1,000 mg - 00 total) by Externa mouth 2 l times daily (with meals) Amlodipine 0 Yes [id number] 10mg Take 1 K elsey Besylate 10 1-14 tablet (10 Se ybold MG oral 00:00: mg total) Tablet 00 by mouth daily Atorvastati 0 Yes [id number] 40mg Take 1 Yaneli n Calcium 1-14 tablet (40 Seyb old 40 MG oral 00:00: mg total) Tablet 00 by mouth daily Carvedilol 0 Yes [id number] 3.125mg Take 1 Yaneli 3.125 MG 1-14 tablet Seybold oral Tablet 00:00: (3.125 mg 00 total) by mouth 2 times daily (with meals) Glimepiride 0 Yes [id number] 2mg Take 1 Yaneli 2 MG oral 1-14 tablet (2 Seybo ld Tablet 00:00: mg total) 00 by mouth every morning (before breakfast) Lisinopril 0 Yes [id number] 10mg Take 1 K elsey 10 MG oral 1-14 tablet (10 Sey bold Tablet 00:00: mg total) 00 by mouth daily Metformin 0 Yes [id number] 1000mg Take 1 Yaneli HCl 1000 MG 1-14 tablet Seybol d oral Tablet 00:00: (1,000 mg 00 total) by mouth 2 times daily (with meals) Amlodipine 0 Yes [id number] 10mg Take 1 K elsey Besylate 10 1-14 tablet (10 Se ybold MG oral 00:00: mg total) Tablet 00 by mouth daily Atorvastati 0 Yes [id number] 40mg Take 1 Yaneli n Calcium 1-14 tablet (40 Seyb old 40 MG oral 00:00: mg total) Tablet 00 by mouth daily Carvedilol 0 Yes [id number] 3.125mg Take 1 Yaneli 3.125 MG 1-14 tablet Seybold oral Tablet 00:00: (3.125 mg 00 total) by mouth 2 times daily (with meals) Glimepiride 2021-0 Yes [id number] 2mg Take 1 Yaneli 2 MG oral 1-14 tablet (2 Seybo ld Tablet 00:00: mg total) 00 by mouth every morning (before breakfast) Lisinopril 2021-0 Yes [id number] 10mg Take 1 K elsey 10 MG oral 1-14 tablet (10 Sey bold Tablet 00:00: mg total) 00 by mouth daily Metformin Yes [id number] 1000mg Take 1 Yaneli HCl 1000 MG -14 tablet Seybol d oral Tablet 00:00: (1,000 mg 00 total) by mouth 2 times daily (with meals) Meloxicam 2020-08 Yes [id number] TAKE 1 Yaneli 15 MG oral 2 [id number] TABLET BY Se ybold Tablet 00:00: MOUTH 00 EVERY DAY NEEDED FOR PAIN Lisinopril 2020-08- No [id number] TAKE 1 Yaneli 10 MG oral 08-15 TABLET BY Sey bold Tablet 00:00: 00:00 MOUTH 00 :00 EVERY DAY Metformin 2021- No [id number] TAKE 1 K elsey HCl 1000 MG 02-15 TABLET BY Se ybold oral Tablet 00:00: 00:00 MOUTH 00 :00 TWICE A DAY WITH MEALS Carvedilol 2021- No [id number] TAKE 1 Yaneli 3.125 MG 18 08-25 TABLET BY Seybo ld oral Tablet 00:00: 00:00 MOUTH 00 :00 TWICE A DAY WITH MEALS Zoster Vac Yes [id number] One dose Yaneli Recomb 11-10 now. Seybold Adjuvanted 00:00: Second 50 00 dose given MCG/0.5ML two to six intramuscul months ar Recon AFTER Susp first dose. Zoster Vac 2021- No [id number] One dose Yaneli Recomb 11-10 06-02 now. Seybold Adjuvanted 00:00: 00:00 Second 50 00 :00 dose given MCG/0.5ML two to six intramuscul months ar Recon AFTER Susp first dose. Amlodipine 2021- No [id number] 10mg Take 1 Ayneli Besylate 10 11-10 tablet (10 S eybold [...] Tablet 00 daily tablet Atorvastati 2021- No [id number] 40mg Take 1 Yaneli n Calcium 08-25 tablet (40 Sey bold 40 MG oral 00:00: 00:00 mg total) Tab 00 :00 by mouth daily Glimepiride 2021- No [id number] 2mg Take 1 Yaneli 2 MG oral 08-25 tablet (2 Seyb old Tab 00:00: 00:00 mg total) 00 :00 by mouth every morning (before breakfast) hydrALAZINE Yes [id number] TAKE 1 Yaneli HCl 10 MG 1-02 TABLET BY Seybo ld oral Tab 00:00: MOUTH UP - 00 TO 3 TIMES Externa A DAY IF l SYSTOLIC BLOOD PRESSURE IS GREATER THAN 165 hydrALAZINE Yes [id number] TAKE 1 Yaneli HCl 10 MG 1-02 TABLET BY Seybo ld oral Tab 00:00: MOUTH UP - 00 TO 3 TIMES Externa A DAY IF l SYSTOLIC BLOOD PRESSURE IS GREATER THAN 165 hydrALAZINE Yes [id number] TAKE 1 Yaneli HCl 10 MG 1-02 TABLET BY Seybo ld oral Tab 00:00: MOUTH UP 00 TO 3 TIMES A DAY IF SYSTOLIC BLOOD PRESSURE IS GREATER THAN 165 hydrALAZINE Yes [id number] TAKE 1 Yaneli HCl 10 MG 1-02 TABLET BY Seybo ld oral Tab 00:00: MOUTH UP 00 TO 3 TIMES A DAY IF SYSTOLIC BLOOD PRESSURE IS GREATER THAN 165 HYDROcodone 2019-08 Yes [id number] 1{tbl} Q8H Take 1 Yaneli -Acetaminop 2-29 [id number] tablet by [place] garcia 10-325 00:00: mouth MG oral Tab 00 every 8 hours as needed for pain HYDROcodone 2019-08- No [id number] 1{tbl} Q.[id number] Take 1 Yaneli -Acetaminop 2-29 06-02 [id number] tablet by Luisana garcia 10-325 00:00: 00:00 3D mouth MG oral Tab 00 :00 every 8 hours as needed for pain atorvastati Yes 40mg QD Take 1 Meth butch n (LIPITOR) 6-05 tablet (40 st 40 MG 00:00: mg total) Hospita tablet 00 by mouth l daily. carvedilol Yes 3.125mg Q.5D Take 1 Me thodi (COREG) 6-[address] 3.125 MG 00:00: (3.125 mg Hosp katlyn tablet 00 total) by l mouth 2 (two) times a day. amLODIPine Yes 5mg QD Take 1 Metho di (NORVASC) 5 6-05 tablet (5 st mg tablet 00:00: mg total) Hos jennifer 00 by mouth l daily. atorvastati 0 Yes 40mg QD Take 1 Meth butch n (LIPITOR) 6-05 tablet (40 st 40 MG 00:00: mg total) Hospita tablet 00 by mouth l daily. carvedilol Yes 3.125mg Q.5D Take 1 Me [...] Hos jennifer 00 by mouth l daily. lisinopril 2017-0 [...] MG tablet 00:00: Hospita 00 l glimepiride 2017-0 Yes QD daily. Meth butch (AMARYL) 2 6-07 st MG tablet 00:00: Hospita 00 l metFORMIN 2017-0 Yes Q.5D 2 (two) Metho di (GLUCOPHAGE 6-[address] ) 500 mg 00:00: day. Hospita tablet 00 l metFORMIN 2017-0 Yes Q.5D 2 [...] MG tablet 00:00: Hospita 00 l metFORMIN 2016-0 Yes Q.5D 2 (two) Metho di (GLUCOPHAGE 6-[address] ) 500 mg 00:00: day. Hospita tablet 00 l lancets 30 Yes USE TO Metho di gauge misc 5-[address] 00:00: GLUCOSE Hospita 00 TWICE l DAILY lancets 30 Yes USE TO Metho di gauge misc 5-[address] 00:00: GLUCOSE Hospita 00 TWICE l DAILY lancets 30 Yes USE TO Metho di gauge misc 5-[address] 00:00: GLUCOSE Hospita 00 TWICE l DAILY lancets 30 Yes USE TO Metho di gauge misc 5-[address] 00:00: GLUCOSE Hospita 00 TWICE l DAILY lancets 30 Yes USE TO Metho di gauge misc 5-[address] 00:00: GLUCOSE Hospita 00 TWICE l DAILY Immunizations Ordered Immunization Filled Immunization Date Status Commen ts Source Name Name SARS-COV-2 COVID-19 2022-08-22 Completed Hina rsity of VACCINE 12 YRS+, 00:00:00 [facility] dical BIVALENT 0.5ML, IM, Branc h (MODERNA BOOSTER) Influenza Virus 2022-05-15 Completed Yaneli Se ybold - Vaccine, age 6 months 00:00:00 Ext ernal and up Influenza Virus 2022-05-15 Completed Yaneli Se ybold - Vaccine, age 6 months 00:00:00 Ext ernal and up Pneumococcal Vaccine, 2021-08-25 Completed Shai sey Seybold Polysaccharide 00:00:00 Pneumococcal Vaccine, 2021-08-25 Completed Shai sey Seybold - Polysaccharide 00:00:00 External Pneumococcal Vaccine, 2021-08-25 Completed Shai sey Seybold - Polysaccharide 00:00:00 External Pneumococcal Vaccine, 2021-08-25 Completed Shai sey Seybold Polysaccharide 00:00:00 Covid-19 Vaccine 2021-07-11 Completed Yaneli Niño eybold - Moderna (Spikevax), 00:00:00 Exter nal Mrna-lnp, Se Protein, Pf Covid-19 Vaccine 2021-07-11 Completed Yaneli Niño eybold - Moderna (Spikevax), 00:00:00 Exter nal Mrna-lnp, Se Protein, Pf Covid-19 Vaccine 2021-07-11 Completed Yaneli baumann (Moderna), Mrna-lnp, 00:00:00 Se Protein, Pf, 100 Mcg/0.5ml,IM Covid-19 Vaccine 2021-07-11 Completed Yaneli Niño eybold Moderna (Spikevax), 00:00:00 Mrna-lnp, Se Protein, Pf Influenza Virus 2021-07-07 Completed Yaneli Sow ybold - Vaccine, No Preserv, 00:00:00 Exte rnal age 6 months and up Influenza Virus 2021-07-07 Completed Yaneli Swo ybold - Vaccine, No Preserv, 00:00:00 Exte [...] 00:00:00 External Shingles IM 2021-03-02 Completed Yaneli Mabryol d (Shingrix) 00:00:00 Shingles IM 2021-03-02 Completed Yaneli Seybol d (Shingrix) 00:00:00 Shingles IM 2020-11-10 Completed Yaneli Seybol d - (Shingrix) 00:00:00 External Shingles IM 2020-11-10 Completed Yaneli Mabryol d - (Shingrix) 00:00:00 External Shingles IM 2020-11-10 Completed Yaneli Seybol d (Shingrix) 00:00:00 Shingles IM 2020-11-10 Completed Yaneli Sowybol d (Shingrix) 00:00:00 SARS-COV-2 COVID-19 2020-10-16 Completed Unive rsity of MODERNA VACCINE 00:00:00 [facility] SARS-COV-2 COVID-19 2020-10-16 Completed Unive rsity of MODERNA 12+ YRS 00:00:00 [facility] Covid-19 Vaccine 2020-10-16 Completed Yaneli baumann - Moderna (Spikevax), 00:00:00 Exter nal Mrna-lnp, Se Protein, Pf Covid-19 Vaccine 2020-10-16 Completed Yaneli baumann - Moderna (Spikevax), 00:00:00 Exter nal Mrna-lnp, Se Protein, Pf Covid-19 Vaccine 2020-10-16 Completed Yaneli baumann (Moderna), Mrna-lnp, 00:00:00 Se Protein, Pf, 100 Mcg/0.5ml,IM Covid-19 Vaccine 2020-10-16 Completed Yaneli baumann Moderna (Spikevax), 00:00:00 Mrna-lnp, Se Protein, Pf SARS-COV-2 COVID-19 2020-09-18 Completed Unive rsity of MODERNA VACCINE 00:00:00 [facility] SARS-COV-2 COVID-19 2020-09-18 Completed Unive rsity of MODERNA 12+ YRS 00:00:00 [facility] VACCINE [place] Covid-19 Vaccine 2020-09-18 Completed Yaneli S eybold - Moderna (Spikevax), 00:00:00 Exter nal Mrna-lnp, Se Protein, Pf Covid-19 Vaccine 2020-09-18 Completed Yaneli Niño eybold - Moderna (Spikevax), 00:00:00 Exter nal Mrna-lnp, Se Protein, Pf Covid-19 Vaccine 2020-09-18 Completed Yaneli limabold (Moderna), Mrna-lnp, 00:00:00 Se Protein, Pf, 100 Mcg/0.5ml,IM Covid-19 Vaccine 2020-09-18 Completed Yaneli limabold Moderna (Spikevax), 00:00:00 Mrna-lnp, Se Protein, Pf Vital Signs Vital Name Observation Time Observation Value Comments Source Body height 2022-05-22 15:05:00 172.7 cm Yaneli limaboedu - External Body weight 2022-05-22 15:05:00 93.078 kg Yaneli limabold - External BMI 2022-05-22 15:05:00 31.20 kg/m2 Yaneli Niño eybold - External Systolic blood 2022-05-15 20:25:00 126 mm[Hg] Yaneli Seybold - pressure External Diastolic blood 2022-05-15 20:25:00 74 mm[Hg] Shaise fátima Seybold - pressure External Heart rate 2022-05-15 20:25:00 76 /min Yaneli limabold - External Body temperature 2022-05-15 20:25:00 36.83 Blanca Anjali lima Seybold - External Respiratory rate 2022-05-15 20:25:00 16 /min Anjali lima Seybold - External Body height 2022-05-15 20:25:00 170.2 cm Yaneli limabold - External Body weight 2022-05-15 20:25:00 88.905 kg Yaneli Niño eybold - External BMI 2022-05-15 20:25:00 30.70 kg/m2 Yaneli Niño eybold - External Systolic blood 2022-01-11 19:46:00 120 mm[Hg] Yaneli Seybold pressure Diastolic blood 2022-01-11 19:46:00 70 mm[Hg] Kelse y Seybold pressure Heart rate 2022-01-11 19:46:00 80 /min Yaneli Niño eybold Body temperature 2022-01-11 19:46:00 36.72 Blanca Anjali ey Seybold Respiratory rate 2022-01-11 19:46:00 16 /min Anjali ey Seybold Body height 2022-01-11 19:46:00 170.2 cm Yaneli Niño eybold Body weight 2022-01-11 19:46:00 90.357 kg Yaneli S eybold BMI 2022-01-11 19:46:00 31.20 kg/m2 Yaneli S eybold Systolic blood 2021-08-25 20:13:00 128 mm[Hg] Yaneli Seybold pressure Diastolic blood 2021-08-25 20:13:00 74 mm[Hg] Kelse y Seybold pressure Heart rate 2021-08-25 20:13:00 80 /min Yaneli Niño eybold Body temperature 2021-08-25 20:13:00 36.72 Blanca Anjali ey Seybold Respiratory rate 2021-08-25 20:13:00 16 /min Anjali ey Seybold Body height 2021-08-25 20:13:00 172.7 cm Yaneli Niño eybold Body weight 2021-08-25 20:13:00 91.445 kg Yaneli Niño eybold BMI 2021-08-25 20:13:00 30.65 kg/m2 Yaneli limabold Procedures Procedure Date / Time Performing Clinician Source Performed SARS-COV-2 COVID-19 2022-08-22 20:02:49 Doctor Unassigned, No [facility] [place] VACCINE 12 YRS+, Name Medical Branch BIVALENT 0.5ML, IM (MODERNA BOOSTER) AUTHORIZATION FOR 2020-12-29 05:01:00 Doctor Unassigned, No Univ ersity [facility] RELEASE OF PHI Name Medical Branch Plan of Care Planned Activity Planned Date Details Comments Source Future Scheduled 2022-07-28 COVID-19 VACCINE (#1) [facility] Test 04:16:40 [code = COVID-19 VACCINE (#1)] Future Scheduled 2022-07-28 COLONOSCOPY SCREENING Me [facility] Test 04:16:40 [code = COLONOSCOPY SCREENING] Future Scheduled 2022-07-28 SHINGLES VACCINES (1 [facility] Test 04:16:40 of 2) [code = SHINGLES VACCINES (1 of 2)] Future Scheduled 2022-07-28 INFLUENZA VACCINE Method [facility] Test 04:16:40 [code = INFLUENZA VACCINE] Future Scheduled 2022-07-28 COVID-19 VACCINE (#1) [facility] Test 04:16:40 [code = COVID-19 VACCINE (#1)] Future Scheduled 2022-07-28 COLONOSCOPY SCREENING [facility] Test 04:16:40 [code = COLONOSCOPY SCREENING] Future Scheduled 2022-07-28 SHINGLES VACCINES (1 Met [facility] Test 04:16:40 of 2) [code = SHINGLES VACCINES (1 of 2)] Future Scheduled 2022-07-28 INFLUENZA VACCINE Method [facility] Test 04:16:40 [code = INFLUENZA VACCINE] Future Scheduled 2022-04-13 HEPATITIS B VACCINES Met [facility] Test 11:29:54 (1 of 3 - 3-dose series) [code = HEPATITIS B VACCINES (1 of 3 - 3-dose series)] Future Scheduled 2022-04-13 COVID-19 VACCINE (#1) [facility] Test 11:29:54 [code = COVID-19 VACCINE (#1)] Future Scheduled 2022-04-13 COLONOSCOPY SCREENING [facility] Test 11:29:54 [code = COLONOSCOPY SCREENING] Future Scheduled 2022-04-13 SHINGLES VACCINES (1 Met [facility] Test 11:29:54 of 2) [code = SHINGLES VACCINES (1 of 2)] Future Scheduled 2022-04-13 INFLUENZA VACCINE Method [facility] Test 11:29:54 [code = INFLUENZA VACCINE] Future Scheduled 2022-04-06 HEPATITIS B VACCINES Met [facility] Test 16:50:10 (1 of 3 - 3-dose series) [code = HEPATITIS B VACCINES (1 of 3 - 3-dose series)] Future Scheduled 2022-04-06 COVID-19 VACCINE (#1) [facility] Test 16:50:10 [code = COVID-19 VACCINE (#1)] Future Scheduled 2022-04-06 COLONOSCOPY SCREENING [facility] Test 16:50:10 [code = COLONOSCOPY SCREENING] Future Scheduled 2022-04-06 SHINGLES VACCINES (1 Met [facility] Test 16:50:10 of 2) [code = SHINGLES VACCINES (1 of 2)] Future Scheduled 2022-04-06 INFLUENZA VACCINE Method [facility] Test 16:50:10 [code = INFLUENZA VACCINE] Future Scheduled 2022-04-06 HEPATITIS B VACCINES Met [facility] Test 16:50:10 (1 of 3 - 3-dose series) [code = HEPATITIS B VACCINES (1 of 3 - 3-dose series)] Future Scheduled 2022-04-06 COVID-19 VACCINE (#1) [facility] Test 16:50:10 [code = COVID-19 VACCINE (#1)] Future Scheduled 2022-04-06 COLONOSCOPY SCREENING [facility] Test 16:50:10 [code = COLONOSCOPY SCREENING] Future Scheduled 2022-04-06 SHINGLES VACCINES (1 Met [facility] Test 16:50:10 of 2) [code = SHINGLES VACCINES (1 of 2)] Future Scheduled 2022-04-06 INFLUENZA VACCINE Method [facility] Test 16:50:10 [code = INFLUENZA VACCINE] Encounters Start End Encounter Admission Attending Care Care Encounter Source Date/Time Date/Time Type Type Clinicians Facility Department ID 2022-10-04 2022-10-04 Outpatient YANELI ALVAREZ [id number] Yaneli 15:00:00 15:00:00 ANN Sowybol emily 2022-09-26 2022-09-26 Outpatient YANELI ALVAREZ [id number] Yaneli 00:00:00 00:00:00 ANN Sowybol emily 2022-09-13 2022-09-13 Outpatient YANELI ALVAREZ [id number] Yaneli 00:00:00 00:00:00 ANN Seybol d 2022-08-31 2022-08-31 Outpatient BROWN BOJORQUEZ [id number] Yaneli 00:00:00 00:00:00 Seybol d 2022-08-22 2022-08-22 Outpatient Phil WOODS [facility] [id number] Univers 13:40:00 14:15:06 DAVID stoner [facility] 2022-08-22 2022-08-22 Imm/Inj Vaccine, Ang Db Cbc [facility] [id number]. [id number] [facility] 13:40:00 13:50:00 Visit David Woods [facility] [id number] [facility] [id number] Lon as ROGER?BLEA [id number] Me [address] [facility] 2022-08-19 2022-08-19 Outpatient YANELI ALVAREZ [id number] Yaneli 00:00:00 00:00:00 ANN Seybol d 2022-07-30 2022-07-30 Outpatient BOJORQUEZ, TYSONADRIEL FREEMAN [id number] Yaneli 09:30:00 09:30:00 Seybol d 2022-05-31 2022-05-31 Outpatient YANELI ALVAREZ [id number] Yaneli 13:30:00 13:30:00 ANN Seybol d 2022-05-25 2022-05-25 Outpatient JACYJENNIFER [id number] Yaneli 14:00:00 14:00:00 Seybol d 2022-05-24 2022-05-24 Outpatient SAIKINYANELI [id number] Yaneli 00:00:00 00:00:00 ANN Seybol d 2022-05-22 2022-05-22 Outpatient YANELI FREEMAN [id number] Yaneli 10:50:00 10:50:00 Seybol d 2022-05-22 2022-05-22 Outpatient BOJORQUEZ, BROWN FREEMAN [id number] Yaneli 10:30:00 10:30:00 Seybol d 2022-05-17 2022-05-17 Outpatient COMBSTORREY [id number] Yaneli 13:45:00 13:45:00 Seybol d 2022-05-16 2022-05-16 Outpatient SAYANELI TURNER [id number] Yaneli 00:00:00 00:00:00 ANN Seybol d 2022-05-16 2022-05-16 Outpatient SAYANELI TURNER [id number] Yaneli 00:00:00 00:00:00 ANN Seybol d 2022-05-15 2022-05-15 Outpatient LAB47 YANELI FREEMAN [id number] Yaneli 17:00:00 17:00:00 Seybol d 2022-05-15 2022-05-15 Outpatient YANELI ALVAREZ [id number] Yaneli 16:30:00 16:30:00 ANN Seybol d 2022-05-15 2022-05-15 Outpatient YANELI FREEMAN [id number] Yaneli 16:05:00 16:05:00 Seybol d 2022-05-15 2022-05-15 Outpatient YANELI ALVAREZ [id number] Yaneli 00:00:00 00:00:00 ANN Seybol d 2022-02-19 2022-02-19 Outpatient YANELI ALVAREZ [id number] Yaneli 00:00:00 00:00:00 ANN Seybol d 2022-01-11 2022-01-11 Outpatient LAB47 YANELI FREEMAN [id number] Yaneli 15:50:00 15:50:00 Seybol d 2022-01-11 2022-01-11 Office MARTINA Alvarez [id number] Yaneli 14:30:00 15:15:00 Visit Ann Mitchell [id number] S ibis [id number] 2021-12-26 2021-12-26 Outpatient ERICSHAIJACOBO YANELI FREEMAN [id number] Yaneli 00:00:00 00:00:00 MD ADITHYA Seybol d 2021-12-13 2021-12-13 Outpatient YANELI ALVAREZ [id number] Yaneli 10:45:00 10:45:00 ANN Seybol d 2021-10-25 2021-10-25 Outpatient YANELI ALVAREZ [id number] [place] 00:00:00 00:00:00 ANN Seybol d 2021-08-25 2021-08-25 Outpatient LAB47 YANELI FREEMAN [id number] Yaneli 15:05:00 15:05:00 Seybol d 2021-08-25 2021-08-25 Office MARTINA Alvarez [id number] Yaneli 14:15:00 14:30:00 Visit Ann Stephen [id number] S ibis [id number] 2021-07-13 2021-07-13 Outpatient YANELI ALVAREZ [id number] Yaneli 00:00:00 00:00:00 ANN Seybol d 2021-07-11 2021-07-11 Outpatient COVID-MODER YANELI FREEMAN [id number] Yaneli 13:30:00 13:30:00 NA BOOSTER, Se ybold FORT 2021-05-31 2021-05-31 Outpatient YANELI ALVAREZ [id number] Yaneli 00:00:00 00:00:00 ANN Seybol d 2021-04-26 2021-04-26 Outpatient YANELI ALVAREZ [id number] Yaneli 00:00:00 00:00:00 ANN Seybol d 2021-03-12 2021-03-12 Outpatient YANELI ALVAREZ [id number] Yaneli 00:00:00 00:00:00 ANN Seybol d 2021-03-02 2021-03-02 Outpatient YANELI ALVAREZ [id number] Yaneli 00:00:00 00:00:00 ANN Seybol d 2021-03-01 2021-03-01 Outpatient YANELI ESQUEDA [id number] [place] 10:00:00 10:00:00 ALYSHA Seybol d 2020-12-29 2020-12-29 Orders Doctor KATZ [id number] [facility] 00:00:00 00:00:00 Only Unassigned, LOBO [id number] ity [facility] [id number] Lon as [phone] [address] 2020-10-16 2020-10-16 Outpatient [facility] [id number] Univers 14:55:00 14:55:00 ity [facility] 2020-09-18 2020-09-18 Outpatient [facility] [id number] Univers 14:50:00 14:50:00 ity [facility] 2020-04-08 2020-04-08 Laboratory Lab, Adc Fam Pob I [facility] [id number] Univers 16:50:31 17:10:31 Only Daysi Almeida [facility] [id number] ity [facility] [id number] Lon as Professio [phone] [place] [address] [address] 2020-04-08 2020-04-08 Outpatient R [facility] [id number] Univers 16:40:00 16:40:00 ity [facility] 2019-10-08 2019-10-08 Outpatient Haroldo-Mbayo VFP VFP [address] [place] [address] 05:55:00 05:55:00 _A_AH [id number] Family Practic e 2019-10-08 2019-10-08 Outpatient Haroldo-Mbayo VFP VFP [address] [place] [address] 05:55:00 05:55:00 _A_AH [id number] Family Practic e Results This patient has no known results.
--- NOTE | 2022-10-31 09:24 | ER ---
Nurse's Notes [facility] Name: Alexandru Galan Age: 62 yrs Sex: Male : 1960 Arrival Date: 10/31/2022 Time: 09:07 Bed 14 Private MD: Diagnosis: Encounter for removal of sutures Presentation: 10/31 09:18 Chief complaint: Patient states: suture removal to right lower back. sutures placed 3 db weeks ago. Coronavirus screen: Vaccine status: Patient reports being unvaccinated. Client denies travel out of the [place] in the last 14 days. At this time, the client does not indicate any symptoms associated with coronavirus-19. Ebola Screen: Patient negative for fever greater than or equal to 101.5 degrees Fahrenheit, and additional compatible Ebola Virus Disease symptoms Patient denies exposure to infectious person. Patient denies travel to an Ebola-affected area in the 21 days before illness onset. No symptoms or risks identified at this time. Initial Sepsis Screen: Does the patient meet any 2 criteria? No. Patient's initial sepsis screen is negative. Does the patient have a suspected source of infection? No. Patient's initial sepsis screen is negative. Risk Assessment: Do you want to hurt yourself or someone else? Patient reports no desire to harm self or others. Onset of symptoms was October 31, 2022. 09:18 Method Of Arrival: Ambulatory db 09:18 Acuity: NACHO 5 db Triage Assessment: :19 General: Appears in no apparent distress. comfortable, Behavior is calm, cooperative. db Pain: Denies pain. Historical: - Allergies: : NKDA; db - PMHx: 09:19 Diabetes - NIDDM; Hypertension; db - PSHx: :19 Neck sx; db - Immunization history:: Adult Immunizations unknown. - Social history:: Smoking status: Patient denies any tobacco usage or history of. Screenin:20 [facility] ED Fall Risk Assessment (Adult) History of falling in the last 3 months, db including since admission No falls in past 3 months (0 pts) Confusion or Disorientation No (0 pts) Intoxicated or Sedated No (0 pts) Impaired Gait No (0 pts) Mobility Assist Device Used No (0 pt) Altered Elimination No (0 pt) Score/Fall Risk Level 0 - 2 = Low Risk Oriented to surroundings, Maintained a safe environment. Abuse screen: Denies threats or abuse. Denies injuries from another. Nutritional screening: No deficits noted. Tuberculosis screening: No symptoms or risk factors identified. Assessment: 09:19 Reassessment: Patient appears in no apparent distress at this time. Patient and/or db family updated on plan of care and expected duration. Pain level reassessed. Patient is alert, oriented x 3, equal unlabored respirations, skin warm/dry/pink. Renée provider at patient bedside for suture removal. Respiratory:. Derm: Reports sutures dry and intact. Vital Signs: 09:15 BP 170 / 83; Pulse 67; Resp 16 S; Temp 98.2(O); Pulse Ox 100% on R/A; Weight 92.08 kg; zm Height 5 ft. 8 in. ; 09:15 Body Mass Index 30.87 (92.08 kg, 172.72 cm) ED Course: 09:07 Patient arrived in ED. mr 09:08 Iwona Galan FNP-C is [facility]. kb 09:08 Demian Beckett MD is Attending Physician. kb 09:18 Jacqueline Katz, RN is Primary Nurse. db 09:19 Triage completed. db 09:19 Arm band placed on Patient placed in an exam room. db 09:21 Removal of Removed sutures from back Patient tolerated well. db 09:31 Patient has correct armband on for positive identification. Bed in low position. Call db light in reach. Side rails up X 1. 09:31 suture removal. Patient did not have IV access during this emergency room visit. db Administered Medications: No medications were administered Medication: 09:20 VIS not applicable for this client. db Outcome: 09:23 Discharge ordered by . kb 09:31 Discharged to home ambulatory. db 09:31 Condition: stable 09:31 Discharge instructions given to patient. 09:32 Patient left the ED. db Signatures: Iwona Galan FNP-C FNP-Myra Smita Ruggiero, Jyoti Jacqueline Katz, RN RN db
--- NOTE | 2022-10-31 09:24 | EDPHYS ---
Physician Documentation [facility] Name: Alexandru Galan Age: 62 yrs Sex: Male : 1960 Arrival Date: 10/31/2022 Time: 09:07 Bed 14 Private MD: ED Physician Demian Beckett HPI: 10/31 09:21 This 62 yrs old Black Male presents to ER via Ambulatory with complaints of Suture kb Removal. 09:21 The patient has sutures on the left mid back. Previous treatment: The patient was kb initially treated 3 weeks ago, the care was rendered at [facility]. Sutures/nellie progress: The patient has no c/o's. The wound is well-healing with no redness, swelling, discharge, or dehiscence reported. The patient has not experienced similar symptoms in the past. The patient has not recently seen a physician. Historical: - Allergies: 09:19 NKDA; db - PMHx: 09:19 Diabetes - NIDDM; Hypertension; db - PSHx: 09:19 Neck sx; db - Immunization history:: Adult Immunizations unknown. - Social history:: Smoking status: Patient denies any tobacco usage or history of. ROS: 09:21 Constitutional: Negative for fever, chills, and weight loss. kb 09:21 Skin: Positive for sutures in place. 09:21 All other systems are negative. Exam: 09:21 Constitutional: This is a well developed, well nourished patient who is awake, alert, kb and in no acute distress. Head/Face: Normocephalic, atraumatic. ENT: Moist Mucous membranes Cardiovascular: Regular rate and rhythm with a normal S1 and S2. No gallops, murmurs, or rubs. No pulse deficits. Respiratory: Respirations even and unlabored. No increased work of breathing. Talking in full sentences Abdomen/GI: Soft, non-tender. No distention MS/ Extremity: Pulses equal, no cyanosis. Neurovascular intact. Full, normal range of motion. Neuro: Awake and alert, GCS 15, oriented to person, place, time, and situation. Moves all extremities. Normal gait. 09:21 Skin: Wound recheck: Suture laceration closure: the wound is healing well, the edges are well approximated, no evidence of dehiscence, no drainage, no erythema, no swelling. Vital Signs: 09:15 BP 170 / 83; Pulse 67; Resp 16 S; Temp 98.2(O); Pulse Ox 100% on R/A; Weight 92.08 kg; zm Height 5 ft. 8 in. ; 09:15 Body Mass Index 30.87 (92.08 kg, 172.72 cm) zm Procedures: 09:21 Suture/Staple removal: Removed 4 sutures, from left mid back, site appears well healed, kb Patient tolerated well. MDM: 09:08 Patient medically screened. kb 09:21 Data reviewed: vital signs, nurses notes. Counseling: I had a detailed discussion with kb the patient and/or guardian regarding: the historical points, exam findings, and any diagnostic results supporting the discharge/admit diagnosis, the need for outpatient follow up, a family practitioner, to return to the emergency department if symptoms worsen or persist or if there are any questions or concerns that arise at home. Administered Medications: No medications were administered Disposition: 10:53 Co-signature as Attending Physician, Demian Beckett MD I reviewed the patient's care rt provided by the Advanced Practice Provider and agree with the diagnosis and treatment plan. Disposition Summary: 10/31/22 09:23 Discharge Ordered Location: Home kb Condition: Stable kb Diagnosis - Encounter for removal of sutures kb Followup: kb - With: Emergency Department - When: As needed - Reason: Worsening of condition Followup: kb - With: Private Physician - When: 2 - 3 days - Reason: Recheck today's complaints, Continuance of care, Re-evaluation by your physician Discharge Instructions: - Discharge Summary Sheet kb - Suture Removal, Care After kb Forms: - Medication Reconciliation Form kb - Thank You Letter kb - Antibiotic Education kb - Prescription Opioid Use kb Signatures: Iwona Galan FNP-C FNP-Ckb Benton, Danielle, RN RN Demian Lamar MD MD rt
[2022-10-31 09:37] VITALS: BP 170/83; TEMP 98.2; O2SAT 100
== END 2022-10-31 09:32 | disposition home or self-care (01) ==
LOC: ER 09:02
DX: Z48.02 Encounter for removal of sutures (principal)

== ENCOUNTER 2023-05-01 09:22 | Emergency (ER) | payer OTHER ==
--- OUTSIDE RECORDS SUMMARY | 2023-05-01 09:26 | XMS REPORT | Continuity of Care Document ---
:1960 Author Organization [facility] t Address [address] [facility] [address] [place] [address] Care Team Providers Name Role Phone Gian Kimball MD, [facility] Primary Care Physician [phone] ANN ALVAREZ Attending Clinician Unavailable RAFFY GARCIA Attending Clinician Unavailable BROWN BOJORQUEZ Attending Clinician Unavailable DAVID WOODS Attending Clinician Unavailable Vaccine, Ang Db Cbc Fam Attending Clinician Unavailable David Woods MD Attending Clinician JENNIFER LOUIE Attending Clinician Unavailable TORREY COMBS Attending Clinician Unavailable LAB47 Attending Clinician Unavailable Ann Alvarez MD Attending Clinician MD SORAIDA Attending Clinician Unavailable COVID-MODERNA BOOSTER, [place] Attending Clinician Unavail able ALYSHA ESQUEDA Attending Clinician Unavailable Doctor Unassigned, [place] Attending Clinician Unavailable Lab, Adc Fam Pob I Attending Clinician Unavailable Daysi Cardona Attending Clinician Haroldo-Mbayo_A_AH Attending Clinician Unavailable Haroldo-Mbayo_A_AH Admitting Clinician Unavailable Payers Payer Name Policy Type Policy Number Effective Date Expiration Date S pastora WELLCARE [place]P 7 [id number] 2021 CLASSIC NO PREMIUM 00:00:00 R2T WELLCARE [place] [id number] 2022 CLASSIC NO PREMIUM 00:00:00 HMO MED[place] [id number] 2020 00:00:00 [place] - [id number] 2019 [place] 00:00:00 (MEDICARE REPLACEMENT/ADVANT AGE - HMO) Problems Condition Condition Condition Status Onset Resolution Last Treating Co mments Source Name Details Category Date Date Treatment Clinician Date DDD DDD Disease Active 2021-08 Yaneli (degenerat (degenerat 0-04 Se ybold chinyere disc chinyere disc 00:00: - disease), disease), 00 Exte rna lumbar lumbar l Obesity Obesity Disease Active Overview: Anjali lima 6 Formattin Seybold 00:00: g of this - [...] of this - diabetes diabetes 00 note 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 be l different from the [...] Overview: Anjali lima obesity obesity 11-10 Formattin Seybo ld due to due to 00:00: g [...] Disease Active Overview : Yaneli ia ia 1- Formattin Seybold associated associated 00:00: g of this - [...] Active Overview: Yaneli hypertensi hypertensi 1-14 Formattin Seybold on on 00:00: g of this - [...] Disease Active Overview : Yaneli chronic chronic -14 Formattin Seybo ld 00:00: g of this note Externa might be l different from [...] Active Univers ALLERGIE Class ity of S [facility] Family History Family Member Diagnosis Comments Start Date Stop Date Source Natural mother Diabetes [facility] Natural mother Heart disease [facility] Natural mother Hypertension [facility] Social History Social Habit Start Date Stop Date Quantity Comments Source Gender identity Yaneli manuel - External Sexual orientation [facility] Exposure to 2022-08-12 2022-08-22 Not sure [facility]-CoV-2 (event) 00:00:00 07:03:00 [facility] Tobacco use and 2020-08-25 2020-08-25 Smokeless Yaneli manuel - exposure 00:00:00 00:00:00 tobacco non-user External Tobacco Comment 2020-08-25 2020-08-25 quit at age 20 Vicki Lieberman - 00:00:00 00:00:00 External Alcohol intake 2017-03-04 2017-03-04 [facility] 00:[facility] 00:[facility]:00 non-drinker of Hospital alcohol (finding) History of Social 2017-03-04 2017-03-[address] function 00:00:00 00:00:00 Hospital History of tobacco 1981-08-25 Cigarette Smoker Yaneli Lieberman - use 00:00:00 External Sex Assigned At [birth year] [facility] 00:[facility]00 Hospital Smoking Status Start Date Stop Date Source Tobacco smoking [facility] xa consumption unknown Medical Bran [facility] Ex-smoker 2020-08-25 00:00:00 2020-08-25 Yaneli Mabryo ld - 00:00:00 External Medications Ordered Filled Start Stop Current Ordering Indication Dosage Frequency Signature Comments Components Source Medication Medication Date Date Medication? Clinician (SIG) Name Name Atorvastati Yes [id number] TAKE 1 Yaneli n Calcium 7-12 TABLET BY Seybo ld 40 MG oral 00:00: MOUTH - Tablet 00 EVERY DAY Externa l Carvedilol Yes [id number] TAKE 1 K elsey 3.125 MG 7-12 TABLET BY Seybol d oral Tablet 00:00: MOUTH - 00 TWICE A Externa DAY WITH l MEALS Amlodipine 2022-0 Yes [id number] TAKE 1 K elsey Besylate 10 7-12 TABLET BY Sey bold MG oral 00:00: MOUTH - Tablet 00 EVERY DAY Externa l Glimepiride 0 Yes [id number] TAKE 1 Yaneli 2 MG oral 7-12 TABLET BY Seybo ld Tablet 00:00: MOUTH - 00 EVERY DAY Externa IN THE l MORNING BEFORE BREAKFAST Metformin 2022- Yes [id number] TAKE 1 Ke lsey HCl 1000 MG 6-26 TABLET BY Sey bold oral Tablet 00:00: MOUTH - 00 TWICE A Externa DAY WITH l MEALS Lisinopril 0 Yes [id number] TAKE 1 K elsey 10 MG oral 2-02 TABLET BY Seyb old Tablet 00:00: MOUTH - 00 EVERY DAY Externa l Gabapentin 2021-08 Yes 1 po q HS [...] as l needed muscle spasms and pain Gabapentin 2021-08 Yes 1 po q HS [...] needed muscle spasms and pain Meloxicam Yes [id number] TAKE 1 Yaneli 15 MG oral 9-27 [id number] TABLET BY Se ybold Tablet 00:00: MOUTH - 00 EVERY DAY Externa NEEDED l FOR PAIN Meloxicam Yes [id number] TAKE 1 Yaneli 15 MG oral 9-27 [id number] TABLET BY Se ybold Tablet 00:00: MOUTH - 00 EVERY DAY Externa NEEDED l FOR PAIN Meloxicam Yes [id number] TAKE 1 Yaneli 15 MG oral 9-27 [id number] TABLET BY Se ybold Tablet 00:00: MOUTH - 00 EVERY DAY Externa NEEDED l FOR PAIN Tramadol Yes 1{tbl} Q.[id number] Take 1 Yaneli HCl 50 MG 9-16 [id number] tablet by Seybold oral Tablet 00:00: 3D mouth - 00 every 8 Externa hours as l needed Ibuprofen Yes 600mg Q.25D Take 600 Ke lsey 600 MG oral 9-16 mg by Seybold Tablet 00:00: mouth - 00 every 6 Externa hours as l needed FOR PAIN Cyclobenzap Yes 10mg Q.26131430 Take 10 mg Yaneli rine HCl 10 9-16 [id number] by mouth Seybold MG oral 00:00: 3D every 8 - Tablet 00 hours as Externa needed l Tramadol 0 Yes 1{tbl} Q.[id number] Take 1 Yaneli HCl 50 MG 9-16 [id number] tablet by Seybold oral Tablet 00:00: 3D mouth - 00 every 8 Externa hours as l needed Ibuprofen 0 Yes 600mg Q.25D Take 600 Ke lsey 600 MG oral 9-16 mg by Seybold Tablet 00:00: mouth - 00 every 6 Externa hours as l needed FOR PAIN Tramadol 0 Yes 50mg Q.05110026 Take 1 K elsey HCl 50 MG 9-16 [id number] tablet (50 Seybold oral Tablet 00:00: 3D mg total) - 00 by mouth Externa every 8 l hours as needed Ibuprofen Yes 600mg Q.25D Take 1 Anjali ey 600 MG oral 9-16 tablet Seybol d Tablet 00:00: (600 mg - 00 total) by Externa mouth l every 6 hours as needed FOR PAIN Cyclobenzap 2021- No 10mg Q.[id number] Take 10 mg Yaneli rine HCl 10 9-16 10-11 [id number] by mouth Seybold MG oral 00:00: 00:00 3D every 8 - Tablet 00 :00 hours as Externa needed l Tdap Yes [id number] Administer Ke lsey (ADACEL) 01-11 one Seybold 5-2-15.5 00:00: - LF-MCG/0.5 00 Externa intramuscul l ar Suspension Tdap Yes [id number] Administer Ke lsey (ADACEL) 01-11 one Seybold 5-2-15.5 00:00: - LF-MCG/0.5 00 Externa intramuscul l ar Suspension Tdap 0 Yes [id number] Administer Ke lsey (ADACEL) 01-11 one Seybold 5-2-15.5 00:00: - LF-MCG/0.5 00 Externa intramuscul l ar Suspension Tdap Yes [id number] Administer Ke lsey (ADACEL) 01-11 one Seybold 5-2-15.5 00:00: LF-MCG/0.5 00 intramuscul ar Suspension Meloxicam Yes [id number] TAKE 1 Yaneli 15 MG oral 3-16 [id number] TABLET BY Se ybold Tablet 00:00: MOUTH 00 EVERY DAY NEEDED FOR PAIN Amlodipine Yes [id number] 10mg Take 1 K elsey Besylate 10 1-14 tablet (10 Se ybold MG oral 00:00: mg total) - Tablet 00 by mouth Externa daily l Atorvastati Yes [id number] 40mg Take 1 Yaneli n Calcium 1-14 tablet (40 Seyb old 40 MG oral 00:00: mg total) - Tablet 00 by mouth Externa daily l Carvedilol Yes [id number] 3.125mg Take 1 Yaneli 3.125 MG 1-14 tablet Seybold oral Tablet 00:00: (3.125 mg - 00 total) by Externa mouth 2 l times daily (with meals) Glimepiride Yes [id number] 2mg Take 1 Yaneli 2 MG oral 1-14 tablet (2 Seybo ld Tablet 00:00: mg total) - 00 by mouth Externa every l morning (before breakfast) Lisinopril 0 Yes [id number] 10mg Take 1 K elsey 10 MG oral 1-14 tablet (10 Sey bold Tablet 00:00: mg total) - 00 by mouth Externa daily l Metformin 0 Yes [id number] 1000mg Take 1 Yaneli HCl 1000 MG 1-14 tablet Seybol d oral Tablet 00:00: (1,000 mg - 00 total) by Externa mouth 2 l times daily (with meals) Amlodipine Yes [id number] 10mg Take 1 K elsey Besylate 10 1-14 tablet (10 Se ybold MG oral 00:00: mg total) - Tablet 00 by mouth Externa daily l Atorvastati Yes [id number] 40mg Take 1 Yaneli n Calcium 1-14 tablet (40 Seyb old 40 MG oral 00:00: mg total) - Tablet 00 by mouth Externa daily l Carvedilol Yes [id number] 3.125mg Take 1 Yaneli 3.125 MG 1-14 tablet Seybold oral Tablet 00:00: (3.125 mg - 00 total) by Externa mouth 2 l times daily (with meals) Glimepiride Yes [id number] 2mg Take 1 Yanlei 2 MG oral 1-14 tablet (2 Seybo ld Tablet 00:00: mg total) - 00 by mouth Externa every l morning (before breakfast) Lisinopril 0 Yes [id number] 10mg Take 1 K elsey 10 MG oral 1-14 tablet (10 Sey bold Tablet 00:00: mg total) - 00 by mouth Externa daily l Metformin 0 Yes [id number] 1000mg Take 1 Yaneli HCl 1000 MG 1-14 tablet Seybol d oral Tablet 00:00: (1,000 mg - 00 total) by Externa mouth 2 l times daily (with meals) Amlodipine Yes [id number] 10mg Take 1 K elsey Besylate 10 1-14 tablet (10 Se ybold MG oral 00:00: mg total) Tablet 00 by mouth daily Atorvastati Yes [id number] 40mg Take 1 Yaneli n Calcium 1-14 tablet (40 Seyb old 40 MG oral 00:00: mg total) Tablet 00 by mouth daily Carvedilol Yes [id number] 3.125mg Take 1 Yaneli 3.125 MG 1-14 tablet Seybold oral Tablet 00:00: (3.125 mg 00 total) by mouth 2 times daily (with meals) Glimepiride Yes [id number] 2mg Take 1 Yaneli 2 MG oral 1-14 tablet (2 Seybo ld Tablet 00:00: mg total) 00 by mouth every morning (before breakfast) Lisinopril 0 Yes [id number] 10mg Take 1 K elsey 10 MG oral 1-14 tablet (10 Sey bold Tablet 00:00: mg total) 00 by mouth daily Metformin 0 Yes [id number] 1000mg Take 1 Yaneli HCl 1000 MG 1-14 tablet Seybol d oral Tablet 00:00: (1,000 mg 00 total) by mouth 2 times daily (with meals) Amlodipine 0 Yes [id number] 10mg Take 1 K elsey Besylate 10 1-14 tablet (10 Se ybold MG oral 00:00: mg total) Tablet 00 by mouth daily Atorvastati 2021-0 Yes [id number] 40mg Take 1 Yaneli n Calcium 1-14 tablet (40 Seyb old 40 MG oral 00:00: mg total) Tablet 00 by mouth daily Carvedilol Yes [id number] 3.125mg Take 1 Yaneli 3.125 MG 1-14 tablet Seybold oral Tablet 00:00: (3.125 mg 00 total) by mouth 2 times daily (with meals) Glimepiride Yes [id number] 2mg Take 1 Yaneli 2 MG oral 1-14 tablet (2 Seybo ld Tablet 00:00: mg total) 00 by mouth every morning (before breakfast) Lisinopril Yes [id number] 10mg Take 1 K elsey 10 MG oral 1-14 tablet (10 Sey bold Tablet 00:00: mg total) 00 by mouth daily Metformin Yes [id number] 1000mg Take 1 Yaneli HCl 1000 MG 1-14 tablet Seybol d oral Tablet 00:00: (1,000 mg 00 total) by mouth 2 times daily (with meals) Meloxicam 2020-08 Yes [id number] TAKE 1 Yaneli 15 MG oral 2-02 [id number] TABLET BY Se ybold Tablet 00:00: MOUTH 00 EVERY DAY NEEDED FOR PAIN Lisinopril 2020-08- No [id number] TAKE 1 Yaneli 10 MG oral 1-04 -14 TABLET BY Sey bold Tablet 00:00: 00:00 MOUTH 00 :00 EVERY DAY Metformin 2021- No [id number] TAKE 1 K elsey HCl 1000 MG 7-07 -14 TABLET BY Se ybold oral Tablet 00:00: 00:00 MOUTH 00 :00 TWICE A DAY WITH MEALS Carvedilol 2021- No [id number] TAKE 1 Yaneli 3.125 MG 5-18 -14 TABLET BY Seybo ld oral Tablet 00:00: 00:00 MOUTH 00 :00 TWICE A DAY WITH MEALS Zoster Vac Yes [id number] One dose Yaneli Recomb 11-10 now. Seybold Adjuvanted 00:00: Second 50 00 dose given MCG/0.5ML two to six intramuscul months ar Recon AFTER Susp first dose. Zoster Vac 2021- No [id number] One dose Yaneli Recomb 4- 06-02 now. Seybold Adjuvanted 00:00: 00:00 Second 50 00 :00 dose given MCG/0.5ML two to six intramuscul months ar Recon AFTER Susp first dose. 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 every l evening Montelukast Yes 10mg Take 1 Anjali ey (SINGULAIR) 1-28 tablet (10 Se ybold 10 MG oral 00:00: mg total) - Tablet 00 by mouth Externa tablet daily l Levocetiriz Yes 1{tbl} Take 1 Ke [...] Yes 1{tbl} Take 1 Ke lsey (SINGULAIR) - tablet by Sey bold 10 MG oral 00:00: mouth Tablet 00 daily tablet Atorvastati 2021- No [id number] 40mg Take 1 Yaneli n Calcium 08-25 tablet (40 Sey bold 40 MG oral 00:00: 00:00 mg total) Tab 00 :00 by mouth daily Glimepiride 2021- No [id number] 2mg Take 1 Yaneli 2 MG oral 08-25 tablet (2 Seyb old Tab 00:00: 00:00 mg total) 00 :00 by mouth every morning (before breakfast) hydrALAZINE Yes [id number] TAKE 1 Yaneli HCl 10 MG 1-02 TABLET BY Seybo ld oral Tab 00:00: MOUTH UP - 00 TO 3 TIMES Externa A DAY IF l SYSTOLIC BLOOD PRESSURE IS GREATER THAN 165 hydrALAZINE Yes [id number] TAKE 1 Yaneli HCl 10 MG 1-02 TABLET BY Seybo ld oral Tab 00:00: MOUTH UP - 00 TO 3 TIMES Externa A DAY IF l SYSTOLIC BLOOD PRESSURE IS GREATER THAN 165 hydrALAZINE Yes [id number] TAKE 1 Yaneli HCl 10 MG 1-02 TABLET BY Seybo ld oral Tab 00:00: MOUTH UP - 00 TO 3 TIMES Externa A DAY IF l SYSTOLIC BLOOD PRESSURE IS GREATER THAN 165 hydrALAZINE Yes [id number] TAKE 1 Yaneli HCl 10 MG 1-02 TABLET BY Seybo ld oral Tab 00:00: MOUTH UP 00 TO 3 TIMES A DAY IF SYSTOLIC BLOOD PRESSURE IS GREATER THAN 165 hydrALAZINE Yes [id number] TAKE 1 Yaneli HCl 10 MG 1-02 TABLET BY Seybo ld oral Tab 00:00: MOUTH UP 00 TO 3 TIMES A DAY IF SYSTOLIC BLOOD PRESSURE IS GREATER THAN 165 HYDROcodone 2019-08 Yes [id number] 1{tbl} Q8H Take 1 Yaneli -Acetaminop 2-29 [id number] tablet by [place] garcia 10-325 00:00: mouth MG oral Tab 00 every 8 hours as needed for pain HYDROcodone 2019-08- No [id number] 1{tbl} Q.94117222 Take 1 Yaneli -Acetaminop 2-29 01-11 [id number] tablet by Luisana garcia [id number] 00:00: 00:00 3D mouth MG oral Tab 00 :00 every 8 hours as needed for pain atorvastati 2018-0 Yes 40mg QD Take 1 [...] daily. ONETOUCH 2017-0 Yes [facility] ULTRA TEST [facility] st strip test 00:00: Hospita strips 00 [...] strip test 00:00: Hospita strips 00 l metFORMIN 2017-0 Yes Q.5D 2 [...] 00:00: day. Hospita tablet 00 l glimepiride 0 Yes QD daily. Meth butch (AMARYL) 2 6-07 st MG tablet 00:00: Hospita 00 l metFORMIN Yes Q.5D 2 (two) Metho di (GLUCOPHAGE 6-[address] ) 500 mg 00:00: day. Hospita tablet 00 l glimepiride 2017-0 Yes QD daily. Meth butch (AMARYL) 2 6-07 st MG tablet 00:00: Hospita 00 l metFORMIN 2016- Yes Q.5D 2 (two) Metho di (GLUCOPHAGE [...] 00:00: GLUCOSE Hospita 00 TWICE l DAILY Vital Signs Vital Name Observation Time Observation Value Comments Source Body height 2022-05-22 15:05:00 172.7 cm Yaneli baumann - External Body weight 2022-05-22 15:05:00 93.078 kg Yaneli baumann - External BMI 2022-05-22 15:05:00 31.20 kg/m2 Yaneil baumann - External Systolic blood 2022-05-15 20:25:00 126 mm[Hg] Yaneli Lieberman - pressure External Diastolic blood 2022-05-15 20:25:00 74 mm[Hg] Shaise y Seybold - pressure External Heart rate 2022-05-15 20:25:00 76 /min Yaneli Niño eybold - External Body temperature 2022-05-15 20:25:00 36.83 [...] Body weight 2022-01-11 19:46:00 90.357 kg Yaneli Niño eybold BMI 2022-01-11 19:46:00 31.20 kg/m2 Yaneli [...] Body weight 2021-08-25 20:13:00 91.445 kg Yaneli baumann BMI 2021-08-25 20:13:00 30.65 kg/m2 Yaneli baumann Procedures Procedure Date / Time Performing Clinician Source Performed SARS-COV-2 COVID-19 2022-08-22 20:02:49 Doctor Unassigned, No [facility] [place] V[facility] Name [facility] BIVALENT 0.5ML, IM (MODERNA BOOSTER) AUTHORIZATION FOR 2020-12-29 05:01:00 Doctor Unassigned, No [facility] [place] RELEASE OF PHI Name [facility] Plan of Care Planned Activity Planned Date Details Comments Source Future Scheduled 2023-04-16 [facility] 09:35:55 malignant neoplasm of colon (procedure) [code = 485104277] Future Scheduled 2023-04-16 [facility] 09:35:55 malignant neoplasm of colon (procedure) [code = 182676380] Future Scheduled 2023-04-16 [facility] Test 09:35:55 malignant neoplasm of colon (procedure) [code = 225720526] Future Scheduled 2023-04-16 COVID-19 [facility]ACCINE (#1) [facility] 09:35:55 [code = COVID-19 VACCINE (#1)] Future Scheduled 2023-04-16 [facility] Test 09:35:55 malignant neoplasm of colon (procedure) [code = 969172421] Future Scheduled 2023-04-16 [facility] Test 09:35:55 malignant neoplasm of colon (procedure) [code = 279050880] Future Scheduled 2023-04-16 SHINGLES VACCINES (1 [facility] 09:35:55 of 2) [code = SHINGLES VACCINES (1 of 2)] Future Scheduled 2023-04-16 INFLUENZA VACCINE [facility] 09:35:55 (#1) [code = INFLUENZA VACCINE (#1)] Future Scheduled 2022-11-10 INFLUENZA VACCINE [facility] 11:41:11 [code = INFLUENZA VACCINE] Future Scheduled 2022-11-10 COVID-19 VACCINE (#1) [facility] 11:41:11 [code = COVID-19 VACCINE (#1)] Future Scheduled 2022-11-10 COLONOSCOPY SCREENING [facility] 11:41:11 [code = COLONOSCOPY SCREENING] Future Scheduled 2022-11-10 SHINGLES VACCINES (1 Met [facility] Test 11:41:11 of 2) [code = SHINGLES VACCINES (1 of 2)] Future Scheduled 2022-07-28 COVID-19 VACCINE (#1) [facility] Test 04:16:40 [code = COVID-19 VACCINE (#1)] Future Scheduled 2022-07-28 COLONOSCOPY SCREENING [facility] Test 04:16:40 [code = COLONOSCOPY SCREENING] Future Scheduled 2022-07-28 SHINGLES VACCINES (1 Met [facility] Test 04:16:40 of 2) [code = SHINGLES VACCINES (1 of 2)] Future Scheduled 2022-07-28 INFLUENZA VACCINE [facility] Test 04:16:40 [code = INFLUENZA VACCINE] Future Scheduled 2022-07-28 COVID-19 VACCINE (#1) [facility] Test 04:16:40 [code = COVID-19 VACCINE (#1)] Future Scheduled 2022-07-28 COLONOSCOPY SCREENING [facility] Test 04:16:40 [code = COLONOSCOPY SCREENING] Future Scheduled 2022-07-28 SHINGLES VACCINES (1 Met [facility] Test 04:16:40 of 2) [code = SHINGLES VACCINES (1 of 2)] Future Scheduled 2022-07-28 INFLUENZA VACCINE [facility] Test 04:16:40 [code = INFLUENZA VACCINE] Future Scheduled 2022-04-13 HEPATITIS B VACCINES Met [facility] Test 11:29:54 (1 of 3 - 3-dose series) [code = HEPATITIS B VACCINES (1 of 3 - 3-dose series)] Future Scheduled 2022-04-13 COVID-19 VACCINE (#1) [facility] Test 11:29:54 [code = COVID-19 VACCINE (#1)] Future Scheduled 2022-04-13 COLONOSCOPY SCREENING [facility] Test 11:29:54 [code = COLONOSCOPY SCREENING] Future Scheduled 2022-04-13 SHINGLES VACCINES (1 Met [facility] Test 11:29:54 of 2) [code = SHINGLES VACCINES (1 of 2)] Future Scheduled 2022-04-13 INFLUENZA VACCINE [facility] Test 11:29:54 [code = INFLUENZA VACCINE] Future Scheduled 2022-04-06 HEPATITIS B VACCINES Met [facility] Test 16:50:10 (1 of 3 - 3-dose series) [code = HEPATITIS B VACCINES (1 of 3 - 3-dose series)] Future Scheduled 2022-04-06 COVID-19 VACCINE (#1) [facility] Test 16:50:10 [code = COVID-19 VACCINE (#1)] Future Scheduled 2022-04-06 COLONOSCOPY SCREENING [facility] Test 16:50:10 [code = COLONOSCOPY SCREENING] Future Scheduled 2022-04-06 SHINGLES VACCINES (1 Met [facility] Test 16:50:10 of 2) [code = SHINGLES VACCINES (1 of 2)] Future Scheduled 2022-04-06 INFLUENZA VACCINE [facility] Test 16:50:10 [code = INFLUENZA VACCINE] Future Scheduled 2022-04-06 HEPATITIS B VACCINES Met [facility] Test 16:50:10 (1 of 3 - 3-dose series) [code = HEPATITIS B VACCINES (1 of 3 - 3-dose series)] Future Scheduled 2022-04-06 COVID-19 VACCINE (#1) [facility] Test 16:50:10 [code = COVID-19 VACCINE (#1)] Future Scheduled 2022-04-06 COLONOSCOPY SCREENING [facility] Test 16:50:10 [code = COLONOSCOPY SCREENING] Future Scheduled 2022-04-06 SHINGLES VACCINES (1 Met [facility] Test 16:50:10 of 2) [code = SHINGLES VACCINES (1 of 2)] Future Scheduled 2022-04-06 INFLUENZA VACCINE [facility] Test 16:50:10 [code = INFLUENZA VACCINE] Encounters Start End Encounter Admission Attending Care Care Encounter Source Date/Time Date/Time Type Type Clinicians Facility Department ID 2023-05-23 2023-05-23 Outpatient YANELI ALVAREZ [id number] Yaneli 14:45:00 14:45:00 ANN Mabryol emily 2023-03-11 2023-03-11 Outpatient YANELI ALVAREZ [id number] Yaneli 14:15:00 14:15:00 ANN Seybol emily 2023-03-06 2023-03-06 Outpatient YANELI ALVAREZ [id number] Yaneli 15:45:00 15:45:00 ANN Seybol d 2023-02-28 2023-02-28 Outpatient JOSE, YANELI FREEMAN [id number] Yaneli 14:40:00 14:40:00 RAFFY Seybo ld 2023-02-20 2023-02-20 Outpatient SAIKIN, YANELI FREEMAN [id number] Yaneli 00:00:00 00:00:00 ANN Seybol d 2023-02-03 2023-02-03 Outpatient SAIKIN, YANELI FREEMAN [id number] Yaneli 00:00:00 00:00:00 ANN Seybol d 2023-01-08 2023-01-08 Outpatient SAIKIN, YANELI FREEMAN [id number] Yaneli 00:00:00 00:00:00 ANN Seybol d 2023-01-05 2023-01-05 Outpatient SAIKIN, YANELI FREEMAN [id number] Yaneli 00:00:00 00:00:00 ANN Seybol d 2023-01-04 2023-01-04 Outpatient SAIKIN, YANELI FREEMAN [id number] Yaneli 00:00:00 00:00:00 ANN Seybol d 2022-11-01 2022-11-01 Outpatient SAIKIN, YANELI FREEMAN [id number] Yaneli 00:00:00 00:00:00 ANN Seybol d 2022-10-04 2022-10-04 Outpatient SAIKIN, YANELI FREEMAN [id number] Yaneli 15:00:00 15:00:00 ANN Seybol d 2022-09-26 2022-09-26 Outpatient SAIKIN, YANELI FREEMAN [id number] Yaneli 00:00:00 00:00:00 ANN Seybol d 2022-09-13 2022-09-13 Outpatient SAIKIN, YANELI FREEMAN [id number] Yaneli 00:00:00 00:00:00 ANN Seybol d 2022-08-31 2022-08-31 Outpatient BOJORQUEZ, BROWN FREEMAN [id number] Yaneli 00:00:00 00:00:00 Seybol d 2022-08-222022-08-22 Outpatient R PEGGY [facility] [id number] Univers 13:40:00 14:15:06 DAVID anupamfátima [facility] 2022-08-22 2022-08-22 Imm/Inj Vaccine, Ang Db Cbc Fam [facility] 1. [id number] Univers 13:40:00 13:50:00 Visit David Woods [facility] [id number] anupamfátima [facility] [id number] Lon as ROGER?BLEA [id number] [address] MEDICAL OFFICE BUILDING 2022-08-19 2022-08-19 Outpatient YANELI ALVAREZ [id number] Yaneli 00:00:00 00:00:00 ANN Seybol d 2022-07-30 2022-07-30 Outpatient BOJORQUEZBROWN [id number] Yaneli 09:30:00 09:30:00 Seybol d 2022-05-31 2022-05-31 Outpatient YANELI ALVAREZ [id number] Yaneli 13:30:00 13:30:00 ANN Seybol d 2022-05-25 2022-05-25 Outpatient JENNIFER LOUIE [id number] Yaneli 14:00:00 14:00:00 Seybol d 2022-05-24 2022-05-24 Outpatient YANELI ALVAREZ [id number] Yaneli 00:00:00 00:00:00 ANN Seybol d 2022-05-22 2022-05-22 Outpatient YANELI FREEMAN [id number] Yaneli 10:50:00 10:50:00 Seybol d 2022-05-22 2022-05-22 Outpatient BOJORQUEZBROWN [id number] Yaneli 10:30:00 10:30:00 Seybol d 2022-05-17 2022-05-17 Outpatient TORREY COMBS [id number] Yaneli 13:45:00 13:45:00 Seybol d 2022-05-16 2022-05-16 Outpatient YANELI ALVAREZ [id number] Yaneli 00:00:00 00:00:00 ANN Seybol d 2022-05-16 2022-05-16 Outpatient SAYUE, YANELI FREEMAN [id number] Yaneli 00:00:00 00:00:00 ANN Seybol d 2022-05-15 2022-05-15 Outpatient LAB47 YANELI FREEMAN [id number] Yaneli 17:00:00 17:00:00 Seybol d 2022-05-15 2022-05-15 Outpatient YANELI ALVAREZ [id number] Yaneli 16:30:00 16:30:00 ANN Seybol d 2022-05-15 2022-05-15 Outpatient YANELI FREEMAN [id number] Yaneli 16:05:00 16:05:00 Seybol d 2022-05-15 2022-05-15 Outpatient YANELI ALVAREZ [id number] Yaneli 00:00:00 00:00:00 ANN Seybol d 2022-02-19 2022-02-19 Outpatient YANELI ALVAREZ [id number] Yaneli 00:00:00 00:00:00 ANN Seybol d 2022-01-11 2022-01-11 Outpatient LAB47 YANELI FREEMAN [id number] Yaneli 15:50:00 15:50:00 Seybol d 2022-01-11 2022-01-11 Office MARTINA Alvarez [id number] Yaneli 14:30:00 15:15:00 Visit Ann Mitchell [id number] ibis [id number] 2021-12-26 2021-12-26 [facility] YANELI FREEMAN [id number] Yaneli 00:00:00 00:00:00 MD ADITHYA Seybol d 2021-12-13 2021-12-13 Outpatient YANELI ALVAREZ [id number] Yaneli 10:45:00 10:45:00 ANN Seybol d 2021-10-25 2021-10-25 Outpatient YANELI ALVAREZ [id number] Yaneli 00:00:00 00:00:00 ANN Seybol d 2021-08-25 2021-08-25 Outpatient LAB47 YANELI FREEMAN [id number] Yaneli 15:05:00 15:05:00 Seybol d 2021-08-25 2021-08-25 Office Russell MARTINA [id number] Yaneli 14:15:00 14:30:00 Visit Ann Mitchell [id number] S janieboedu [id number] 2021-07-13 2021-07-13 Outpatient YANELI ALVAREZ [id number] Yaneli 00:00:00 00:00:00 ANN Seybol d 2021-07-11 2021-07-11 Outpatient COVID-MODER YANELI FREEMAN [id number] Yaneli 13:30:00 13:30:00 NA Se mar ROBLES 2021-05-31 2021-05-31 Outpatient YANELI ALVAREZ [id number] Yaneli 00:00:00 00:00:00 ANN Seybol d 2021-04-26 2021-04-26 Outpatient YANELI ALVAREZ [id number] Yaneli 00:00:00 00:00:00 ANN Seybol d 2021-03-12 2021-03-12 Outpatient YANELI ALVAREZ [id number] Yaneli 00:00:00 00:00:00 ANN Seybol d 2021-03-02 2021-03-02 Outpatient YANELI ALVAREZ [id number] Yaneli 00:00:00 00:00:00 ANN Seybol d 2021-03-01 2021-03-01 Outpatient YANELI ESQUEDA [id number] Yaneli 10:00:00 10:00:00 ALYSHA Seybol d 2020-12-29 2020-12-29 Orders Doctor STERLING [id number] Univers 00:00:00 00:00:00 Only Unassigned, LOBO [id number] ity of [place] [facility] [id number] Lon as [id number] [place] [id number] [address] 2020-10-16 2020-10-16 Outpatient [facility] [id number] Univers 14:55:00 14:55:00 ity of [facility] 2020-09-18 2020-09-18 Outpatient [facility] [id number] Univers 14:50:00 14:50:00 ity of [facility] 2020-04-08 2020-04-08 Laboratory Lab, Adc Fam Pob I [facility] [id number] Univers 16:50:31 17:10:31 Only [employer] [id number] ity [facility] [id number] Lon as Professio [id number] Mo dical nal [address] [place] [address] 2020-04-08 2020-04-08 Outpatient R [facility] [id number] Univers 16:40:00 16:40:00 ity [facility] 2019-10-08 2019-10-08 Outpatient Haroldo-Mbayo [facility] [address] [place] [id number] 05:55:00 05:55:00 _A_ [id number] [facility] 2019-10-08 2019-10-08 Outpatient Haroldo-Mbayo [facility] [id number] 05:55:00 05:55:00 _A_AH [id number] Family Practic e Results This patient has no known results.
[2023-05-01] MEDS ORDERED: CYCLOBENZAPRINE 10 MG TAB ONE (10:06)
[2023-05-01] MEDS ORDERED: dexAMETHasone 10 MG/ML VIAL ONE (10:06)
[2023-05-01] MEDS ORDERED: KETOROLAC 30 MG/ML INJ ONE (10:06)
--- NOTE | 2023-05-01 10:38 | RAD REPORT ---
EXAM DESCRIPTION: CT - Spine Lumbar Wo Con - 05/01/2023 9:56 am CLINICAL HISTORY: Radiculopathy. pain COMPARISON: Spine Lumbar Wo Con dated 04/27/2022 TECHNIQUE: Axial noncontrast CT imaging of the lumbar spine was performed with coronal and sagittal re-formatted images. All CT scans are performed using dose optimization technique as appropriate and may include automated exposure control or mA/KV adjustment according to patient size. FINDINGS: No acute lumbar spine fracture seen. No aggressive marrow pattern or malalignment. Paraspinal tissues are normal in thickness. No paraspinal abscess or hematoma seen. Intervertebral disc disease assessment is inherently limited by CT. Within these limitations, no high -grade canal stenosis suspected. Mild disc bulges noted lower lumbar levels. IMPRESSION: No acute lumbar spine abnormality. Consider MRI follow-up for assessment of disc disease if clinically desired.
--- NOTE | 2023-05-01 11:06 | ER ---
Nurse's Notes [facility] Name: Alexandru Galan Age: 62 yrs Sex: Male : 1960 Arrival Date: 05/01/2023 Time: : Bed 15 Private MD: Diagnosis: Lumbago with sciatica Presentation: 05/01 09:33 Chief complaint: Patient states: Low back pain since . No trauma or falls. ll1 Coronavirus screen: Vaccine status: Patient reports receiving the 2nd dose of the covid vaccine. Client denies travel out of the [place] in the last 14 days. At this time, the client does not indicate any symptoms associated with coronavirus-19. Ebola Screen: Patient denies travel to an Ebola-affected area in the 21 days before illness onset. Initial Sepsis Screen: Does the patient meet any 2 criteria? No. Patient's initial sepsis screen is negative. Does the patient have a suspected source of infection? No. Patient's initial sepsis screen is negative. Risk Assessment: Do you want to hurt yourself or someone else? Patient reports no desire to harm self or others. Onset of symptoms was April 25, 2023. 09:33 Method Of Arrival: Ambulatory ll1 09:33 Acuity: NACHO 4 ll1 Triage Assessment: 09:34 General: Appears in no apparent distress. Behavior is calm, cooperative, appropriate ll1 for age. Pain: Complains of pain in back Pain currently is 10 out of 10 on a pain scale. Quality of pain is described as aching, throbbing. Musculoskeletal: Circulation, motion, and sensation intact. Capillary refill < 3 seconds, Reports pain in back. Historical: - Allergies: 09:25 NKDA; ll1 - PMHx: 09:25 Diabetes - NIDDM; Hypertension; ll1 - PSHx: 09:25 Neck sx; ll1 - Immunization history:: Adult Immunizations up to date. - Social history:: Smoking status: Patient denies any tobacco usage or history of. Screenin:45 [facility] ED Fall Risk Assessment (Adult) History of falling in the last 3 months, kc6 including since admission No falls in past 3 months (0 pts) Confusion or Disorientation No (0 pts) Intoxicated or Sedated No (0 pts) Impaired Gait No (0 pts) Mobility Assist Device Used No (0 pt) Altered Elimination No (0 pt) Score/Fall Risk Level 0 - 2 = Low Risk. Abuse screen: Denies threats or abuse. Denies injuries from another. Nutritional screening: No deficits noted. Tuberculosis screening: No symptoms or risk factors identified. Assessment: 09:45 General: Appears in no apparent distress. uncomfortable, Behavior is calm, cooperative, kc6 appropriate for age. Pain: Complains of pain in back Pain does not radiate. Pain currently is 10 out of 10 on a pain scale. Neuro: Level of Consciousness is awake, alert, obeys commands, Oriented to person, place, time, situation, Appropriate for age. Cardiovascular: Capillary refill < 3 seconds. Respiratory: Airway is patent Trachea midline Respiratory effort is even, unlabored, Respiratory pattern is regular, symmetrical. GI: No signs and/or symptoms were reported involving the gastrointestinal system. : No signs and/or symptoms were reported regarding the genitourinary system. EENT: No signs and/or symptoms were reported regarding the EENT system. Derm: No signs and/or symptoms reported regarding the dermatologic system. Skin is intact, is healthy with good turgor, Skin is pink, warm \T\ dry. Musculoskeletal: No signs and/or symptoms reported regarding the musculoskeletal system. Circulation, motion, and sensation intact. Capillary refill < 3 seconds, Range of motion: intact in all extremities. 10:44 Reassessment: Patient appears in no apparent distress at this time. No changes from kc6 previously documented assessment. Patient and/or family updated on plan of care and expected duration. Pain level reassessed. Patient is alert, oriented x 3, equal unlabored respirations, skin warm/dry/pink. Vital Signs: 09:33 BP 167 / 83; Pulse 67; Resp 16; Temp 97.8; Pulse Ox 100% ; Weight 89.36 kg; Height 5 ll1 ft. 8 in. ; Pain 10/10; 10:44 BP 142 / 74; Pulse 66; Resp 16 S; Pulse Ox 100% on R/A; kc6 09:33 Body Mass Index 29.95 (89.36 kg, 172.72 cm) ll1 09:33 Pain Scale: Adult ll1 ED Course: 09:25 Patient arrived in ED. im 09:25 Huong Ni [facility]-C [facility]. sb4 09:25 Paola Valles is Attending Physician. sb4 09:25 Arm band placed on Patient placed in an exam room, on a stretcher. ll1 09:26 Eve Kim, RN is Primary Nurse. kc6 09:34 Triage completed. ll1 09:45 Patient has correct armband on for positive identification. Bed in low position. Call kc6 light in reach. Side rails up X 1. Client placed on continuous cardiac and pulse oximetry monitoring. NIBP monitoring applied. 09:56 Spine Lumbar Wo Con In Process Unspecified. EDMS 11:22 No provider procedures requiring assistance completed. Patient did not have IV access kc6 during this emergency room visit. Administered Medications: 10:04 Drug: Ketorolac IM 30 mg IM once Route: IM; Site: right deltoid; kc6 10:44 Follow up: Response: No adverse reaction; Pain is decreased kc6 10:04 Drug: Dexamethasone IM 10 mg IM once Route: IM; Site: left deltoid; kc6 10:44 Follow up: Response: No adverse reaction kc6 10:04 Drug: Cyclobenzaprine PO 10 mg PO once Route: PO; kc6 10:44 Follow up: Response: No adverse reaction; Pain is decreased kc6 Medication: 11:23 VIS not applicable for this client. kc6 Outcome: 11:06 Discharge ordered by . sb4 11:22 Discharged to home ambulatory, with significant other, kc6 11:22 Condition: improved 11:22 Discharge instructions given to patient, Instructed on discharge instructions, follow up and referral plans. Demonstrated understanding of instructions, follow-up care, 11:23 Patient left the ED. kc6 Signatures: Dispatcher [employer] EDMS Brianna Colunga, RN RN ll1 Eve Kim, RN RN kc6 Huong Ni, PAAlbertC PALiz sb4 Uma Solano
--- NOTE | 2023-05-01 11:06 | EDPHYS ---
Physician Documentation [facility] Name: Alexandru Galan Age: 62 yrs Sex: Male : 1960 Arrival Date: 05/01/2023 Time: : Bed 15 Private MD: ED Physician Paola Valles HPI: 05/01 09:49 This 62 yrs old Black Male presents to ER via Ambulatory with complaints of Low Back sb4 Pain. 09:49 The patient presents with pain that is acute, with no known mechanism of injury. The sb4 symptoms are located in the low back. The pain radiates to the right leg and left leg. The problem was sustained without known cause. Onset: The symptoms/episode began/occurred 6 day(s) ago. Modifying factors: The patient symptoms are alleviated by remaining still, the patient symptoms are aggravated by movement, standing. Associated signs and symptoms: Pertinent negatives: dysuria, incontinence, numbness, tingling. The patient has experienced a previous episode, but today's symptoms are worse. The patient has not recently seen a physician. Historical: - Allergies: 09:25 NKDA; ll1 - PMHx: 09:25 Diabetes - NIDDM; Hypertension; ll1 - PSHx: 09:25 Neck sx; ll1 - Immunization history:: Adult Immunizations up to date. - Social history:: Smoking status: Patient denies any tobacco usage or history of. ROS: 09:53 Constitutional: Negative for fever, chills, and weight loss, sb4 09:53 Back: Positive for pain at rest, pain with movement, radiated pain, 09:53 All other systems are negative, Exam: 09:53 Constitutional: This is a well developed, well nourished patient who is awake, alert, sb4 and in no acute distress. Head/Face: Normocephalic, atraumatic. Eyes: Extra-ocular motions intact. Periorbital areas with no swelling, redness, or edema. ENT: Mucous membranes moist. Skin: Warm, dry with normal turgor. Normal color with no rashes, no lesions, and no evidence of cellulitis. MS/ Extremity: Pulses equal, no cyanosis. Neurovascular intact. Full, normal range of motion. Neuro: Awake and alert, GCS 15, oriented to person, place, time, and situation. Motor strength 5/5 in all extremities. Sensory grossly intact. 09:53 Back: pain, that is moderate, of the lumbar area, left low back and right low back, ROM is painful, with all movement, normal spinal alignment noted, no deformity, CVA tenderness, is absent, vertebral tenderness, is not appreciated, muscle spasm, is not present, Straight leg raises: right lower extremity illicits pain, Vital Signs: 09:33 BP 167 / 83; Pulse 67; Resp 16; Temp 97.8; Pulse Ox 100% ; Weight 89.36 kg; Height 5 ll1 ft. 8 in. ; Pain 10/10; 10:44 BP 142 / 74; Pulse 66; Resp 16 S; Pulse Ox 100% on R/A; kc6 09:33 Body Mass Index 29.95 (89.36 kg, 172.72 cm) ll1 09:33 Pain Scale: Adult ll1 MDM: 09:27 Patient medically screened. sb4 09:53 Differential diagnosis: arthritis, strain, fracture, sciatica, Herniated disc. sb4 11:05 Data reviewed: vital signs, nurses notes, radiologic studies, and as a result, I will sb4 discharge patient. Care significantly affected by the following chronic conditions: Diabetes, Hypertension. Counseling: I had a detailed discussion with the patient and/or guardian regarding the historical points, exam findings, and any diagnostic results supporting the discharge/admit diagnosis, the presence of at least one elevated blood pressure reading (>120/80) during this emergency department visit, radiology results, to return to the emergency department if symptoms worsen or persist or if there are any questions or concerns that arise at home. Medication response: Toradol markedly relieved the patient's pain. 05/01 09:46 Order name: Spine Lumbar Wo Con; Complete Time: 10:38 EDMS Administered Medications: 10:04 Drug: Ketorolac IM 30 mg IM once Route: IM; Site: right deltoid; kc6 10:44 Follow up: Response: No adverse reaction; Pain is decreased kc6 10:04 Drug: Dexamethasone IM 10 mg IM once Route: IM; Site: left deltoid; kc6 10:44 Follow up: Response: No adverse reaction kc6 10:04 Drug: Cyclobenzaprine PO 10 mg PO once Route: PO; kc6 10:44 Follow up: Response: No adverse reaction; Pain is decreased kc6 Disposition Summary: 05/01/23 11:06 Discharge Ordered Notes: Location: Home sb4 Problem: an ongoing problem sb4 Symptoms: have improved sb4 Condition: Stable sb4 Diagnosis - Lumbago with sciatica sb4 Followup: sb4 - With: Private Physician - When: As needed - Reason: Further diagnostic work-up, Recheck today's complaints, Re-evaluation by your physician Discharge Instructions: - Discharge Summary Sheet sb4 - Sciatica sb4 Forms: - Medication Reconciliation Form sb4 - Thank You Letter sb4 - Antibiotic Education sb4 - Prescription Opioid Use sb4 - Patient Portal Instructions sb4 - Leadership Thank You Letter sb4 Signatures: Dispatcher [employer] Brianna Quezada RN RN ll1 Eve Kim RN RN kc6 Huong Ni, PAAlbertC PALiz sb4
[2023-05-01 11:46] VITALS: TEMP 97.8; O2SAT 100
[2023-05-01 11:48] VITALS: BP 142/74
== END 2023-05-01 11:23 | disposition home or self-care (01) ==
LOC: ER 09:22
DX: M54.40 Lumbago with sciatica, unspecified side (principal)
CPT/HCPCS: 72131; J1100

== ENCOUNTER 2023-05-28 11:26 | Observation (INO) | payer OTHER ==
--- OUTSIDE RECORDS SUMMARY | 2023-05-28 11:31 | XMS REPORT | Continuity of Care Document ---
:1960 Author Organization [facility] t Address [address] [facility] [address] [place] [address] Care Team Providers Name Role Phone Pcp, Patient Does Not Have A Primary Care Physician [id number] ANN ALVAREZ Attending Clinician Unavailable RAFFY GARCIA Attending Clinician Unavailable BROWN BOJORQUEZ Attending Clinician Unavailable DAVID WOODS Attending Clinician Unavailable Vaccine, Ang Db Cbc Fam Attending Clinician Unavailable David Woods MD Attending Clinician JENNIFER LOUIE Attending Clinician Unavailable TORREY COMBS Attending Clinician Unavailable [id number] Attending Clinician Unavailable Ann Alvarez MD Attending Clinician MD SORAIDA Attending Clinician Unavailable COVID-MODERNA [facility] Attending Clinician Unavail able ALYSHA ESQUEDA Attending Clinician Unavailable Doctor Unassigned, Strayhorn Attending Clinician Unavailable Lab, Adc Fam Pob I Attending Clinician Unavailable Daysi Cardona Attending Clinician Haroldo-Mbayo_A_AH Attending Clinician Unavailable Haroldo-Mbayo_A_AH Admitting Clinician Unavailable Payers Payer Name Policy Type Policy Number Effective Date Expiration Date S pastora [employer] [place] 7 [id number] 2021 CLASSIC NO PREMIUM 00:00:00 R2T [place] [id number] 2022 CLASSIC NO PREMIUM 00:00:00 [place] [id number] 2020 00:00:00 [place] [id number] 2019 [place] 00:00:00 (MEDICARE REPLACEMENT/ADVANT AGE - [...] Formattin Seybold 00:00: g of this - 00 note Externa might be l different from the original. Advising healthy diet and exercise with goal for 10-15% weight loss annuallyL ast Assessmen t & Plan: Formattin g of this note might be different from the original. Unchanged - goals reviewed Class 1 Class 1 Disease Active Overview: Anjali lima obesity obesity 01-11 Formattin Seybo ld due to due to 00:00: g of this - excess excess 00 note Externa calories calories might be l with with different serious serious from the [...] be different from the original. 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 Diabetic with a1c > 8% resulting in immunosup pression. Last Assessmen t & Plan: Formattin g of this note might be different from the original. Unchanged - working on improving DM control Allergic Allergic Disease Active Overview: Kirt leoneey rhinitis rhinitis 01-11 Formattin Sey bold 00:00: g of this - 00 note Externa might be l different from the original. On xyzalLast Assessmen t & Plan: Formattin g of [...] Active Overview: Yaneli diabetes diabetes 11-10 Formattin Garrett bold mellitus mellitus 00:00: g of this - with with 00 note Externa microalbum microalbum might be l inuria, inuria, different without without from the long-term long-term original. current current Goal a1c use of use of < 7%Goal insulin insulin fasting (multi (multi glucose HCC) [facility]) 80-130On metformin , glimepiri deMonitor ing renal functionO n Lisinopri lLast Assessmen t & Plan: Formattin g of this note might be different from the original. Controlle d by home monitorin g- c/w current meds/dose s Class 1 Class 1 Disease Active Overview: [...] Disease Active Overview : Yaneli ia ia 1-14 Formattin Luisana associated associated 00:00: g of this - with type with type 00 note Exte rna 2 diabetes 2 diabetes might be l mellitus mellitus different (multi (multi from the [facility]) [facility]) original. Goal A1c < 7%Goal fasting glucose 80-130On Metformin , Glimepiri deLDL goal % reduction 50+%On ASA, Atorvasta tinLast Assessmen t & Plan: Formattin g of this note might be different from the original. Controlle d- c/w current meds/dose s Essential Essential Disease Active Overview: Yaneli hypertensi hypertensi 08-25 Formattin Seybold on on 00:00: g of note Externa might be l different from the original. Goal BP < 130/80On amlodipin e, coreg, lisinopri Monica PRN HYDRALAZI NE FOR SBP > 165Last Assessmen t & Plan: Formattin g of this note might be different from the original. Controlle d- c/w current meds/dose s Neck pain, Neck [...] might be different from the original. Controlle d- c/w current med/dose Allergies, Adverse Reactions, Alerts Allergy Allergy Status Severity Reaction(s) Onset Inactive Treating Comm ents Source Name Type Date Date Clinician NO KNOWN Drug Active Univers ALLERGIE Class ity of [facility] Family History Family Member Diagnosis Comments Start Date Stop Date Source Natural mother Diabetes [facility] Natural mother Heart disease [facility] Natural mother Hypertension [facility] Social History Social Habit Start Date Stop Date Quantity Comments Source Gender identity Yaneli manuel - External Sexual [facility] Tobacco use and 2023-05-23 2023-05-23 Smokeless Yaneli manuel - exposure 00:00:00 00:00:00 tobacco non-user External Tobacco Comment 2023-05-23 2023-05-23 quit at age 20 Vicki Mabryold - 00:00:00 00:00:00 External Exposure to 2022-08-12 2022-08-22 Not sure [facility] SARS-CoV-2 (event) 00:00:00 07:03:00 [facility] Alcohol intake 2017-03-04 2017-03-04 Current Islam 00:00:00 00:00:00 non-drinker of Hospital alcohol (finding) History of Social 2017-03-04 2017-03-[address] function 00:00:00 00:00:00 Hospital History of tobacco 1981-08-25 Cigarette Smoker Yaneli Lieberman - use 00:00:00 External Sex [birth year] Islam 00:00:00 00:00:00 Hospital Smoking Status Start Date Stop Date Source Tobacco smoking [facility] consumption unknown [facility] Ex-smoker 2023-05-23 00:00:00 2023-05-23 Yaneli Mabryo ld - 00:00:00 External Medications Ordered Filled Start Stop Current Ordering Indication Dosage Frequency Signature Comments Components Source Medication Medication Date Date Medication? Clinician (SIG) Name Name Levocetiriz 2022-08 Yes [id number] 5mg Take 1 Yaneli ine 0-12 tablet (5 Seybold Dihydrochlo 00:00: mg total) - ride 5 MG 00 by mouth Retail Team Member a oral Tablet every day l at 5:00 PM. Metformin 2022-08 Yes [id number] 1000mg Take 1 Yaneli HCl 1000 MG 0-12 tablet Seybol d oral Tablet 00:00: (1,000 mg - 00 total) by Externa mouth in l the morning and 1 tablet (1,000 mg total) in the evening. Take with meals. Tdap 2022-08 Yes [id number] Administer Ke lsey (ADACEL) 0-12 one. Seybold 5-2-15.5 00:00: - LF-MCG/0.5 00 Externa mL l Intramuscul ar Suspension Cyclobenzap 2022- No 5mg Q.[id number] Take 1 Yaneli rine HCl 5 9-20 10-12 [id number] tablet (5 Seybold MG oral 00:00: 00:00 3D mg total) - Tablet 00 :00 by mouth Externa every 8 l hours as needed FOR PAIN. Atorvastati 0 Yes [id number] TAKE 1 Yaneli n Calcium 7-12 TABLET BY Seybo ld 40 MG oral 00:00: MOUTH - Tablet 00 EVERY DAY Externa l Carvedilol 0 Yes [id number] TAKE 1 K elsey 3.125 MG 7-12 TABLET BY Seybol d oral Tablet 00:00: MOUTH - 00 TWICE A Externa DAY WITH l MEALS Amlodipine 2022-0 Yes [id number] TAKE 1 K elsey Besylate 10 7-12 TABLET BY Sey bold MG oral 00:00: MOUTH - Tablet 00 EVERY DAY Externa l Glimepiride 2022-0 Yes [id number] TAKE 1 Yaneli 2 MG oral 7-12 TABLET BY Seybo ld Tablet 00:00: MOUTH - 00 EVERY DAY Externa IN THE l MORNING BEFORE BREAKFAST Atorvastati 2022-0 Yes [id number] TAKE 1 Yaneli n Calcium 7-12 TABLET BY Seybo ld 40 MG oral 00:00: MOUTH - Tablet 00 EVERY DAY Externa l Carvedilol 2022-0 Yes [id number] TAKE 1 K elsey 3.125 MG 7-12 TABLET BY Seybol d oral Tablet 00:00: MOUTH - 00 TWICE A Externa DAY WITH l MEALS Amlodipine 2022-0 Yes [id number] TAKE 1 K elsey Besylate 10 7-12 TABLET BY Sey bold MG oral 00:00: MOUTH - Tablet 00 EVERY DAY Externa l Glimepiride 2022-0 Yes [id number] TAKE 1 Yaneli 2 MG oral 7-12 TABLET BY Seybo ld Tablet 00:00: MOUTH - 00 EVERY DAY Externa IN THE l MORNING BEFORE BREAKFAST Metformin 2022-0 Yes [id number] TAKE 1 Ke lsey HCl 1000 MG 6-26 TABLET BY Sey bold oral Tablet 00:00: MOUTH - 00 TWICE A Externa DAY WITH l MEALS Metformin 2022- No [id number] TAKE 1 K elsey HCl 1000 MG 6-26 10-12 TABLET BY Se ybold oral Tablet 00:00: 00:00 MOUTH - 00 :00 TWICE A Externa DAY WITH l MEALS Lisinopril Yes [id number] TAKE 1 K elsey 10 MG oral 2-02 TABLET BY Seyb old Tablet 00:00: MOUTH - 00 EVERY DAY Externa l Lisinopril Yes [id number] TAKE 1 K elsey 10 MG oral [...] needed muscle spasms and pain Meloxicam Yes [id number] TAKE 1 Yaneli 15 MG oral 9-27 [id number] TABLET BY Se ybold Tablet 00:00: MOUTH - 00 EVERY DAY Externa NEEDED l FOR PAIN Meloxicam Yes [id number] TAKE 1 Yaneli 15 MG oral 9-27 [id number] TABLET BY Se ybold Tablet 00:00: MOUTH - 00 EVERY DAY Externa NEEDED l FOR PAIN Meloxicam 2021-0 Yes [id number] TAKE 1 Yaneli 15 MG oral 9-27 [id number] TABLET BY Se ybold Tablet 00:00: MOUTH - 00 EVERY DAY Externa NEEDED l FOR PAIN Meloxicam 2021-0 2023- No [id number] TAKE 1 Yaneli 15 MG oral 9-27 10-12 [id number] TABLET BY S eybold Tablet 00:00: 00:00 MOUTH - 00 :00 EVERY DAY Externa NEEDED l FOR PAIN Tramadol 2021-0 Yes 1{tbl} Q.[id number] Take 1 Yaneli HCl 50 MG 9-16 [id number] tablet by Seybold oral Tablet 00:00: 3D mouth - 00 every 8 Externa hours as l needed Ibuprofen 2021-0 Yes 600mg Q.25D Take 600 Ke lsey 600 MG oral 9-16 mg by Seybold Tablet 00:00: mouth - 00 every 6 Externa hours as l needed FOR PAIN Cyclobenzap 2021-0 Yes 10mg Q.[id number] Take 10 mg Yaneli rine HCl 10 9-16 [id number] by mouth Seybold MG oral 00:00: 3D every 8 - Tablet 00 hours as Externa needed l Tramadol 2021-0 Yes 1{tbl} Q.[id number] Take 1 Yaneli HCl 50 MG 9-16 [id number] tablet by Seybold oral Tablet 00:00: 3D mouth - 00 every 8 Externa hours as l needed Ibuprofen 2021-0 Yes 600mg Q.25D Take 600 Ke lsey 600 MG oral 9-16 mg by Seybold Tablet 00:00: mouth - 00 every 6 Externa hours as l needed FOR PAIN Tramadol 2021-0 Yes 50mg Q.[id number] Take 1 K elsey HCl 50 MG 9-16 [id number] tablet (50 Seybold oral Tablet 00:00: 3D mg total) - 00 by mouth Externa every 8 l hours as needed Ibuprofen 2-0 Yes 600mg Q.25D Take 1 Anjali ey 600 MG oral 9-16 tablet Seybol d Tablet 00:00: (600 mg - 00 total) by Externa mouth l every 6 hours as needed FOR PAIN Ibuprofen 2-0 Yes 600mg Q.25D Take 1 Anjali ey 600 MG oral 9-16 tablet Seybol d Tablet 00:00: (600 mg - 00 total) by Externa mouth l every 6 hours as needed FOR PAIN. Tramadol 2022- No 50mg Q.[id number] Take 1 Yaneli HCl 50 MG 04-27 [id number] tablet (50 Seybold oral Tablet 00:00: 00:00 3D mg total) - 00 :00 by mouth Externa every 8 l hours as needed. Cyclobenzap 2021- No 10mg Q.[id number] Take 10 mg Yaneli rine HCl 10 04-27 [id number] by mouth Seybold MG oral 00:00: 00:00 3D every 8 - Tablet 00 :00 hours as Externa needed l Tdap Yes [id number] Administer Ke lsey (ADACEL) 01-11 one Seybold 5-2-15.5 00:00: - LF-MCG/0.5 00 Externa intramuscul l ar Suspension Tdap Yes [id number] Administer Ke lsey (ADACEL) 01-11 one Seybold 5-2-15.5 00:00: - LF-MCG/0.5 00 Externa intramuscul l ar Suspension Tdap Yes [id number] Administer Ke lsey (ADACEL) 01-11 one Seybold 5-2-15.5 00:00: - LF-MCG/0.5 00 Externa intramuscul l ar Suspension Tdap Yes [id number] Administer Ke lsey (ADACEL) 01-11 one Seybold 5-2-15.5 00:00: LF-MCG/0.5 00 intramuscul ar Suspension Tdap 2022- No [id number] Administer K elsey (ADACEL) 01-1112 one Seybold 5-2-15.5 00:00: 00:00 - LF-MCG/0.5 00 :00 Externa intramuscul l ar Suspension Meloxicam Yes [id number] TAKE 1 Yaneli 15 MG oral 3-16 [id number] TABLET BY Se ybold Tablet 00:00: MOUTH 00 EVERY DAY NEEDED FOR PAIN Amlodipine Yes [id number] 10mg Take 1 K elsey Besylate 10 1-14 tablet (10 Se ybold MG oral 00:00: mg total) - Tablet 00 by mouth Externa daily l Atorvastati 0 Yes [id number] 40mg Take 1 Yaneli n Calcium 1-14 tablet (40 Seyb old 40 MG oral 00:00: mg total) - Tablet 00 by mouth Externa daily l Carvedilol 0 Yes [id number] 3.125mg Take 1 Yaneli 3.125 MG 1-14 tablet Seybold oral Tablet 00:00: (3.125 mg - 00 total) by Externa mouth 2 l times daily (with meals) Glimepiride 2021-0 Yes [id number] 2mg Take 1 Yaneli 2 MG oral 1-14 tablet (2 Seybo ld Tablet 00:00: mg total) - 00 by mouth Externa every l morning (before breakfast) Lisinopril 0 Yes [id number] 10mg Take 1 K elsey 10 MG oral 1-14 tablet (10 Sey bold Tablet 00:00: mg total) - 00 by mouth Externa daily l Metformin 0 Yes [id number] 1000mg Take 1 Yaneli HCl 1000 MG 1-14 tablet Seybol d oral Tablet 00:00: (1,000 mg - 00 total) by Externa mouth 2 l times daily (with meals) Amlodipine 0 Yes [id number] 10mg Take 1 K elsey Besylate 10 1-14 tablet (10 Se ybold MG oral 00:00: mg total) - Tablet 00 by mouth Externa daily l Atorvastati 0 Yes [id number] 40mg Take 1 Yaneli n Calcium 1-14 tablet (40 Seyb old 40 MG oral 00:00: mg total) - Tablet 00 by mouth Externa daily l Carvedilol 2021-0 Yes [id number] 3.125mg Take 1 Yaneli 3.125 MG 1-14 tablet Seybold oral Tablet 00:00: (3.125 mg - 00 total) by Externa mouth 2 l times daily (with meals) Glimepiride 2021-0 Yes [id number] 2mg Take 1 Yaneli 2 MG oral 1-14 tablet (2 Seybo ld Tablet 00:00: mg total) - 00 by mouth Externa every l morning (before breakfast) Lisinopril 0 Yes [id number] 10mg Take 1 K elsey 10 MG oral 1-14 tablet (10 Sey bold Tablet 00:00: mg total) - 00 by mouth Externa daily l Metformin 0 Yes [id number] 1000mg Take 1 Yaneli HCl 1000 MG 1-14 tablet Seybol d oral Tablet 00:00: (1,000 mg - 00 total) by Externa mouth 2 l times daily (with meals) Amlodipine 0 Yes [id number] 10mg Take 1 K elsey Besylate 10 1-14 tablet (10 Se ybold MG oral 00:00: mg total) Tablet 00 by mouth daily Atorvastati Yes [id number] 40mg Take 1 Yaneli n Calcium 1-14 tablet (40 Seyb old 40 MG oral 00:00: mg total) Tablet 00 by mouth daily Carvedilol Yes [id number] 3.125mg Take 1 Yaneli 3.125 MG 1-14 tablet Seybold oral Tablet 00:00: (3.125 mg 00 total) by mouth 2 times daily (with meals) Glimepiride 0 Yes [id number] 2mg Take 1 Yaneli 2 MG oral 1-14 tablet (2 Seybo ld Tablet 00:00: mg total) 00 by mouth every morning (before breakfast) Lisinopril 0 Yes [id number] 10mg Take 1 K elsey 10 MG oral 1-14 tablet (10 Sey bold Tablet 00:00: mg total) 00 by mouth daily Metformin 0 Yes [id number] 1000mg Take 1 Yaneli HCl 1000 MG 1-14 tablet Seybol d oral Tablet 00:00: (1,000 mg 00 total) by mouth 2 times daily (with meals) Amlodipine Yes [id number] 10mg Take 1 K elsey Besylate 10 1-14 tablet (10 Se ybold MG oral 00:00: mg total) Tablet 00 by mouth daily Atorvastati 0 Yes [id number] 40mg Take 1 Yaneli n Calcium 1-14 tablet (40 Seyb old 40 MG oral 00:00: mg total) Tablet 00 by mouth daily Carvedilol 0 Yes [id number] 3.125mg Take 1 Yaneli 3.125 MG 1-14 tablet Seybold oral Tablet 00:00: (3.125 mg 00 total) by mouth 2 times daily (with meals) Glimepiride Yes [id number] 2mg Take 1 Yaneli 2 MG oral 1-14 tablet (2 Seybo ld Tablet 00:00: mg total) 00 by mouth every morning (before breakfast) Lisinopril Yes [id number] 10mg Take 1 K elsey 10 MG oral 1-14 tablet (10 Sey bold Tablet 00:00: mg total) 00 by mouth daily Metformin Yes [id number] 1000mg Take 1 Yaneli HCl 1000 MG 1-14 tablet Seybol d oral Tablet 00:00: (1,000 mg 00 total) by mouth 2 times daily (with meals) Meloxicam 2020-08 Yes [id number] TAKE 1 Yaneli 15 MG oral 2-02 [id number] TABLET BY Se ybold Tablet 00:00: MOUTH 00 EVERY DAY NEEDED FOR PAIN Lisinopril 2020-08- No [id number] TAKE 1 Yaneli 10 MG oral 1-04 -14 TABLET BY Sey bold Tablet 00:00: 00:00 MOUTH 00 :00 EVERY DAY Metformin 2021- No [id number] TAKE 1 K elsey HCl 1000 MG 7-07 -14 TABLET BY Se ybold oral Tablet 00:00: 00:00 MOUTH 00 :00 TWICE A DAY WITH MEALS Carvedilol 2021- No [id number] TAKE 1 Yaneli 3.125 MG 5-18 -14 TABLET BY Seybo ld oral Tablet 00:00: 00:00 MOUTH 00 :00 TWICE A DAY WITH MEALS Zoster Vac Yes [id number] One dose Yaneli Recomb 11-10 now. Seybold Adjuvanted 00:00: Second 50 00 dose given MCG/0.5ML two to six intramuscul months ar Recon AFTER Susp first dose. Zoster Vac 2021- No [id number] One dose Yaneli Recomb 4- 06-02 now. Seybold Adjuvanted 00:00: 00:00 Second 50 00 :00 dose given MCG/0.5ML two to six intramuscul months ar Recon AFTER Susp first dose. Amlodipine 2021- No [id number] 10mg Take 1 Yaneli Besylate 10 11-1014 [...] - ride 5 MG 00 by mouth Retail Team Member a oral Tablet every l evening Montelukast [...] 00:00: mouth Tablet 00 daily tablet Levocetiriz 3- No 5mg Take 1 Shai sey ine - 10-12 tablet (5 Seybold Dihydrochlo 00:00: 00:00 mg total) - ride 5 MG 00 :00 by mouth Retail Team Member a oral Tablet every l evening. Montelukast 0 3- No 10mg Take 1 Shai sey (SINGULAIR) - 10-12 tablet (10 S eybold 10 MG oral 00:00: 00:00 mg total) - Tablet 00 :00 by mouth Externa tablet daily. l Atorvastati 2021- No [id number] 40mg Take 1 Yaneli n Calcium 08-25 tablet (40 Sey bold 40 MG oral 00:00: 00:00 mg total) Tab 00 :00 by mouth daily Glimepiride 2021- No [id number] 2mg Take 1 Yaneli 2 MG oral 08-25 tablet (2 Seyb old Tab 00:00: 00:00 mg total) 00 :00 by mouth every morning (before breakfast) hydrALAZINE 2020-0 Yes [id number] TAKE 1 Yaneli HCl 10 MG 1-02 TABLET BY Seybo ld oral Tab 00:00: MOUTH UP - 00 TO 3 TIMES Externa A DAY IF l SYSTOLIC BLOOD PRESSURE IS GREATER THAN 165 hydrALAZINE 2020-0 Yes [id number] TAKE 1 Yaneli HCl 10 MG 1-02 TABLET BY Seybo ld oral Tab 00:00: MOUTH UP - 00 TO 3 TIMES Externa A DAY IF l SYSTOLIC BLOOD PRESSURE IS GREATER THAN 165 hydrALAZINE 2020-0 Yes [id number] TAKE 1 Yaneli HCl 10 MG 1-02 TABLET BY Seybo ld oral Tab 00:00: MOUTH UP - 00 TO 3 TIMES Externa A DAY IF l SYSTOLIC BLOOD PRESSURE IS GREATER THAN 165 hydrALAZINE 2020-0 Yes [id number] TAKE 1 Yaneli HCl 10 MG 1-02 TABLET BY Seybo ld oral Tab 00:00: MOUTH UP - 00 TO 3 TIMES Externa A DAY IF l SYSTOLIC BLOOD PRESSURE IS GREATER THAN 165 hydrALAZINE 2020-0 Yes [id number] TAKE 1 Yaneli HCl 10 MG 1-02 TABLET BY Seybo ld oral Tab 00:00: MOUTH UP 00 TO 3 TIMES A DAY IF SYSTOLIC BLOOD PRESSURE IS GREATER THAN 165 hydrALAZINE Yes [id number] TAKE 1 Yaneli HCl 10 MG 1-02 TABLET BY Seybo ld oral Tab 00:00: MOUTH UP 00 TO 3 TIMES A DAY IF SYSTOLIC BLOOD PRESSURE IS GREATER THAN 165 HYDROcodone 2019-08 Yes [id number] 1{tbl} Q8H Take 1 Yaneli -Acetaminop 2-29 [id number] tablet by [place] garcia 325 00:00: mouth MG oral Tab 00 every 8 hours as needed for pain HYDROcodone 2019-08- No [id number] 1{tbl} Q.[id number] Take 1 Yaneli -Acetaminop 2-29 06-02 [id number] tablet by Luisana garcia 00:00: 00:00 3D mouth MG oral Tab 00 :00 every 8 hours as needed for pain amLODIPine 2018-0 Yes 5mg QD Take 1 [...] Hos jennifer 00 by mouth l daily. amLODIPine 2018-0 Yes 5mg QD Take 1 [...] l mouth 2 (two) times a day. atorvastati 2018-0 Yes 40mg QD Take 1 [...] l mouth 2 (two) times a day. lisinopril 2017-0 Yes 10mg QD Take 1 [...] 7-18 st strip test 00:00: Hospita strips l ONETOUCH 0 Yes [facility] strip test 00:00: Hospita strips l ONETOUCH 0 Yes [facility] ULTRA [facility] strip test 00:00: Hospita strips l ONETOUCH 0 Yes [facility] ULTRA TEST [facility] strip test 00:00: Hospita strips l ONETOUCH 0 Yes [facility] ULTRA TEST [facility] strip test 00:00: Hospita strips l ONETOUCH 0 Yes [facility] ULTRA TEST 7-18 st strip [...] st MG tablet 00:00: Hospita 00 l lancets Yes USE TO Metho [...] TWICE l DAILY Immunizations Ordered Immunization Filled Date Status Comments Sour ce Name Immunization Name SARS-COV-2 COVID-19 2022-08-22 [facility]:00 [facility] dical BIVALENT 0.5ML, IM, Branc h (MODERNA BOOSTER) Influenza Virus 2022-05-15 Completed Yaneli manuel Vaccine, age 6 00:00:00 - External months and up Influenza Virus 2022-05-15 Completed Yaneli manuel Vaccine, age 6 00:00:00 - External months and up Influenza Virus 2022-05-15 Completed Yaneli manuel Vaccine, age 6 00:00:00 - External months and up Pneumococcal 2021-08-25 Completed Yaneli Seybo ld Vaccine, 00:00:00 Polysaccharide Pneumococcal 2021-08-25 Completed Yaneli Seybo ld Vaccine, 00:00:00 - External Polysaccharide Pneumococcal 2021-08-25 Completed Yaneli Seybo ld Vaccine, 00:00:00 - External Polysaccharide Pneumococcal 2021-08-25 Completed Yaneli Seybo ld Vaccine, 00:00:00 - External Polysaccharide Pneumococcal 2021-08-25 Completed Yaneli Seybo ld Vaccine, 00:00:00 Polysaccharide Covid-19 Vaccine 2021-07-11 Completed Yaneli Niño eybold Moderna (Spikevax), 00:00:00 - Ext ernal Mrna-lnp, Se Protein, Pf Covid-19 Vaccine 2021-07-11 Completed Yaneli Niño eybold Moderna (Spikevax), 00:00:00 - Ext ernal Mrna-lnp, Se Protein, Pf Covid-19 Vaccine 2021-07-11 Completed Yaneli Niño eybold Moderna (Spikevax), 00:00:00 - Ext ernal Mrna-lnp, Se Protein, Pf Covid-19 Vaccine 2021-07-11 Completed Yaneli Niño eybold (Moderna), Mrna-lnp, 00:00:00 Se Protein, Pf, 100 Mcg/0.5ml,IM Covid-19 Vaccine 2021-07-11 Completed Yaneli S eybold Moderna (Spikevax), 00:00:00 Mrna-lnp, Se Protein, Pf Influenza Virus 2021-07-07 Completed Yaneli Sow ybold Vaccine, No Preserv, 00:00:00 - Ex ternal age 6 months and up Influenza Virus 2021-07-07 Completed Yaneli Se ybold Vaccine, No Preserv, 00:00:00 - Ex ternal age 6 months and up Influenza Virus 2021-07-07 Completed Yaneli Se ybold Vaccine, No Preserv, 00:00:00 - Ex ternal age 6 months and up Influenza Virus 2021-07-07 Completed Yaneli Se ybold Vaccine, No Preserv, 00:00:00 age 6 months and up Influenza Virus 2021-07-07 Completed Yaneli Se ybold Vaccine, No Preserv, 00:00:00 age 6 months and up Shingles IM 2021-03-02 Completed Yaneli Seybol d (Shingrix) 00:00:00 - External Shingles IM 2021-03-02 Completed Yaneli Seybol d (Shingrix) 00:00:00 - External Shingles IM 2021-03-02 Completed Yaneli Seybol d (Shingrix) 00:00:00 - External Shingles IM 2021-03-02 Completed Yaneli Seybol d (Shingrix) 00:00:00 Shingles IM 2021-03-02 Completed Yaneli Seybol d (Shingrix) 00:00:00 Shingles IM 2020-11-10 Completed Yaneli Seybol d (Shingrix) 00:00:00 - External Shingles IM 2020-11-10 Completed Yaneli Seybol d (Shingrix) 00:00:00 - External Shingles IM 2020-11-10 Completed Yaneli Seybol d (Shingrix) 00:00:00 - External Shingles IM 2020-11-10 Completed Yaneli Seybol d (Shingrix) 00:00:00 Shingles IM 2020-11-10 Completed Yaneli Seybol d (Shingrix) 00:00:00 Covid-19 Vaccine 2020-10-16 Completed Yaneli baumann Moderna (Spikevax), 00:00:00 - Ext ernal Mrna-lnp, Se Protein, Pf Covid-19 Vaccine 2020-10-16 Completed Yaneli baumann Moderna (Spikevax), 00:00:00 - Ext ernal Mrna-lnp, Se Protein, Pf Covid-19 Vaccine 2020-10-16 Completed Yaneli baumann Moderna (Spikevax), 00:00:00 - Ext ernal Mrna-lnp, Se Protein, Pf Covid-19 Vaccine 2020-10-16 Completed Yaneli baumann (Moderna), Mrna-lnp, 00:00:00 Se Protein, Pf, 100 Mcg/0.5ml,IM Covid-19 Vaccine 2020-10-16 Completed Yaneli baumann Moderna (Spikevax), 00:00:00 Mrna-lnp, Se Protein, Pf SARS-COV-2 COVID-19 2020-10-16 Completed Unive rsity of MODERNA VACCINE 00:00:00 [facility] SARS-COV-2 COVID-19 2020-10-16 Completed Unive rsity of MODERNA 12+ YRS 00:00:00 [facility] Covid-19 Vaccine 2020-09-18 Completed Yaneli baumann Moderna (Spikevax), 00:00:00 - Ext ernal Mrna-lnp, Se Protein, Pf Covid-19 Vaccine 2020-09-18 Completed Yaneli baumann Moderna (Spikevax), 00:00:00 - Ext ernal Mrna-lnp, Se Protein, Pf Covid-19 Vaccine 2020-09-18 Completed Yaneli baumann Moderna (Spikevax), 00:00:00 - Ext ernal Mrna-lnp, Se Protein, Pf Covid-19 Vaccine 2020-09-18 Completed Yaneli baumann (Moderna), Mrna-lnp, 00:00:00 Se Protein, Pf, 100 Mcg/0.5ml,IM Covid-19 Vaccine 2020-09-18 Completed Yaneli baumann Moderna (Spikevax), 00:00:00 Mrna-lnp, Se Protein, Pf SARS-COV-2 COVID-19 2020-09-18 Completed Unive rsity of MODERNA VACCINE 00:00:00 [facility] SARS-COV-2 COVID-19 2020-09-18 Completed Unive rsity of MODERNA 12+ YRS 00:00:00 [facility] Covid-19 Vaccine Unknown Completed Yaneli baumann Moderna (Spikevax), - Ext ernal Mrna-lnp, Se Protein, Pf Covid-19 Vaccine Unknown Completed Yaneli baumann Moderna (Spikevax), - Ext ernal Mrna-lnp, Se Protein, Pf Shingles IM Unknown Completed Yaneli Villareal d (Shingrix) - External Shingles IM Unknown Completed Yaneli Villareal d (Shingrix) - External Covid-19 Vaccine Unknown Completed Yaneli baumann Moderna (Spikevax), - Ext ernal Mrna-lnp, Se Protein, Pf Influenza Virus Unknown Completed Yaneli manuel Vaccine, No Preserv, - Ex ternal age 6 months and up Pneumococcal Unknown Completed Yaneli Delgado ld Vaccine, - External Polysaccharide Influenza Virus Unknown Completed Yaneli manuel Vaccine, age 6 - External months and up Influenza, Unknown Completed Yaneli Lieberman Injectable, Mdck, - Exter nal Preservative Free, Quadrivalent Pneumococcal Unknown Completed Yaneli Delgado ld Conjugate 15 - External (Vaxneuvance) Vital Signs Vital Name Observation Time Observation Value Comments Source Systolic blood 2023-05-23 19:18:00 126 mm[Hg] Yaneli Seybold - pressure External Diastolic blood 2023-05-23 19:18:00 80 mm[Hg] Kelse y Seybold - pressure External Heart rate 2023-05-23 19:18:00 76 /min Yaneli Niño eybold - External Body temperature 2023-05-23 19:18:00 36.5 Blanca Anjali ey Seybold - External Respiratory rate 2023-05-23 19:18:00 16 /min Anjali ey Seybold - External Body height 2023-05-23 19:18:00 172.7 cm Yaneli S eybold - External Body weight 2023-05-23 19:18:00 93.35 kg Yaneli S eybold - External BMI 2023-05-23 19:18:00 31.29 kg/m2 Yaneli S eybold - External Body height 2022-05-22 15:05:00 172.7 cm Yaneli S eybold - External Body weight 2022-05-22 15:05:00 93.078 kg Yaneli S eybold - External BMI 2022-05-22 15:05:00 31.20 kg/m2 Yaneli S eybold - External Systolic blood 2022-05-15 20:25:00 126 mm[Hg] Yaneli Seybold - pressure External Diastolic blood 2022-05-15 20:25:00 74 mm[Hg] Kelse y Seybold - pressure External Heart rate 2022-05-15 20:25:00 76 /min Yaneli S eybold - External Body temperature 2022-05-15 20:25:00 36.83 Blanca Anjali ey Seybold - External Respiratory rate 2022-05-15 20:25:00 16 /min Anjali ey Seybold - External Body height 2022-05-15 20:25:00 170.2 cm Yaneli Niño eybold - External Body weight 2022-05-15 20:25:00 [...] COVID-19 2022-08-22 20:02:49 [facility] Un[facility]igned, [facility] Name [facility] BIVALENT 0.5ML, IM (MODERNA BOOSTER) AUTHORIZATION FOR 2020-12-29 05:01:00 Doctor Unassigned, No [facility] Plan of Care Planned Activity Planned Date Details Comments Source Future Scheduled 2023-05-28 [facility] 11:29:07 malignant neoplasm of colon (procedure) [code = 985202218] Future Scheduled 2023-05-28 [facility] 11:29:07 malignant neoplasm of colon (procedure) [code = 368301997] Future Scheduled 2023-05-28 [facility] Test 11:29:07 malignant neoplasm of colon (procedure) [code = 323795809] Future Scheduled 2023-05-28 COVID-19 VACCINE (#1) [facility] Test 11:29:07 [code = COVID-19 VACCINE (#1)] Future Scheduled 2023-05-28 [facility] 11:29:07 malignant neoplasm of colon (procedure) [code = 316024825] Future Scheduled 2023-05-28 [facility] Test 11:29:07 malignant neoplasm of colon (procedure) [code = 040240911] Future Scheduled 2023-05-28 SHINGLES VACCINES (1 Met [facility] Test 11:29:07 of 2) [code = SHINGLES VACCINES (1 of 2)] Future Scheduled 2023-05-28 RSV VACCINES > 60 YR Met [facility] Test 11:29:07 (1 - 1-dose 60+ series) [code = RSV VACCINES > 60 YR (1 - 1-dose 60+ series)] Future Scheduled 2023-05-28 INFLUENZA VACCINE [facility] Test 11:29:07 (#1) [code = INFLUENZA VACCINE (#1)] Future Scheduled 2023-04-16 [facility]ACCINE [facility] 09:35:55 (#1) [code = INFLUENZA VACCINE (#1)] Future Scheduled 2023-04-16 [facility] Test 09:35:55 malignant neoplasm of colon (procedure) [code = 086600193] Future Scheduled 2023-04-16 [facility] Test 09:35:55 malignant neoplasm of colon (procedure) [code = 521128125] Future Scheduled 2023-04-16 [facility] Test 09:35:55 malignant neoplasm of colon (procedure) [code = 511310586] Future Scheduled 2023-04-16 COVID-19 VACCINE (#1) [facility] Hospital Test 09:35:55 [code = COVID-19 VACCINE (#1)] Future Scheduled 2023-04-16 [facility] Test 09:35:55 malignant neoplasm of colon (procedure) [code = 069131124] Future Scheduled 2023-04-16 [facility] Test 09:35:55 malignant neoplasm of colon (procedure) [code = 469682898] Future Scheduled 2023-04-16 SHINGLES VACCINES (1 Met [facility] Test 09:35:55 of 2) [code = SHINGLES VACCINES (1 of 2)] Future Scheduled 2022-11-10 COVID-19 VACCINE (#1) [facility] Hospital Test 11:41:11 [code = COVID-19 VACCINE (#1)] Future Scheduled 2022-11-10 COLONOSCOPY SCREENING [facility] Hospital Test 11:41:11 [code = COLONOSCOPY SCREENING] Future Scheduled 2022-11-10 SHINGLES VACCINES (1 Met [facility] Test 11:41:11 of 2) [code = SHINGLES VACCINES (1 of 2)] Future Scheduled 2022-11-10 INFLUENZA VACCINE [facility] Test 11:41:11 [code = INFLUENZA VACCINE] Future Scheduled 2022-07-28 COVID-19 VACCINE (#1) [facility] Hospital Test 04:16:40 [code = COVID-19 VACCINE (#1)] Future Scheduled 2022-07-28 COLONOSCOPY SCREENING [facility] Hospital Test 04:16:40 [code = COLONOSCOPY SCREENING] Future Scheduled 2022-07-28 SHINGLES VACCINES (1 Met [facility] Test 04:16:40 of 2) [code = SHINGLES VACCINES (1 of 2)] Future Scheduled 2022-07-28 INFLUENZA VACCINE [facility] Test 04:16:40 [code = INFLUENZA VACCINE] Future Scheduled 2022-07-28 COVID-19 VACCINE (#1) [facility] Hospital Test 04:16:40 [code = COVID-19 VACCINE (#1)] Future Scheduled 2022-07-28 COLONOSCOPY SCREENING [facility] Hospital Test 04:16:40 [code = COLONOSCOPY SCREENING] Future Scheduled 2022-07-28 SHINGLES VACCINES (1 Met [facility] Test 04:16:40 of 2) [code = SHINGLES VACCINES (1 of 2)] Future Scheduled 2022-07-28 INFLUENZA VACCINE Method [facility] Hospital Test 04:16:40 [code = INFLUENZA VACCINE] Future Scheduled 2022-04-13 HEPATITIS B VACCINES Met [facility] Test 11:29:54 (1 of 3 - 3-dose series) [code = HEPATITIS B VACCINES (1 of 3 - 3-dose series)] Future Scheduled 2022-04-13 COVID-19 VACCINE (#1) [facility] Hospital Test 11:29:54 [code = COVID-19 VACCINE (#1)] Future Scheduled 2022-04-13 COLONOSCOPY SCREENING [facility] Test 11:29:54 [code = COLONOSCOPY SCREENING] Future Scheduled 2022-04-13 SHINGLES VACCINES (1 Met [facility] Test 11:29:54 of 2) [code = SHINGLES VACCINES (1 of 2)] Future Scheduled 2022-04-13 INFLUENZA VACCINE Method [facility] Hospital Test 11:29:54 [code = INFLUENZA VACCINE] Future Scheduled 2022-04-06 HEPATITIS B VACCINES Met [facility] Test 16:50:10 (1 of 3 - 3-dose series) [code = HEPATITIS B VACCINES (1 of 3 - 3-dose series)] Future Scheduled 2022-04-06 COVID-19 VACCINE (#1) [facility] Hospital Test 16:50:10 [code = COVID-19 VACCINE (#1)] Future Scheduled 2022-04-06 COLONOSCOPY SCREENING [facility] Hospital Test 16:50:10 [code = COLONOSCOPY SCREENING] Future Scheduled 2022-04-06 SHINGLES VACCINES (1 Met [facility] Test 16:50:10 of 2) [code = SHINGLES VACCINES (1 of 2)] Future Scheduled 2022-04-06 INFLUENZA VACCINE Method [facility] Hospital Test 16:50:10 [code = INFLUENZA VACCINE] Future Scheduled 2022-04-06 HEPATITIS B VACCINES Met [facility] Test 16:50:10 (1 of 3 - 3-dose series) [code = HEPATITIS B VACCINES (1 of 3 - 3-dose series)] Future Scheduled 2022-04-06 COVID-19 VACCINE (#1) [facility] Hospital Test 16:50:10 [code = COVID-19 VACCINE (#1)] Future Scheduled 2022-04-06 COLONOSCOPY SCREENING [facility] Hospital Test 16:50:10 [code = COLONOSCOPY SCREENING] Future Scheduled 2022-04-06 SHINGLES VACCINES (1 [facility] Test 16:50:10 of 2) [code = SHINGLES VACCINES (1 of 2)] Future Scheduled 2022-04-06 INFLUENZA VACCINE Method [facility] Hospital Test 16:50:10 [code = INFLUENZA VACCINE] Encounters Start End Encounter Admission Attending Care Care Encounter Source Date/Time Date/Time Type Type Clinicians Facility Department ID 2023-05-23 2023-05-23 Outpatient YANELI ALVAREZ [id number] Yaneli 14:45:00 14:45:00 ANN Seybol d 2023-03-11 2023-03-11 Outpatient SAIKIYANELI Del Rosario [id number] Yaneli 14:15:00 14:15:00 ANN Seybol d 2023-03-06 2023-03-06 Outpatient SAIKIYANELI Del Rosario [id number] Yaneli 15:45:00 15:45:00 ANN Seybol d 2023-02-28 2023-02-28 Outpatient JOSEYANELI [id number] Yaneli 14:40:00 14:40:00 RAFFY Seybo ld 2023-02-20 2023-02-20 Outpatient SAYANELI TURNER [id number] Yaneli 00:00:00 00:00:00 ANN Seybol d 2023-02-03 2023-02-03 Outpatient SAYANELI TURNER [id number] Yaneli 00:00:00 00:00:00 ANN Seybol d 2023-01-08 2023-01-08 Outpatient SAYANELI TURNER [id number] Yaneli 00:00:00 00:00:00 ANN Seybol d 2023-01-05 2023-01-05 Outpatient SAIKIYANELI Del Rosario [id number] Yaneli 00:00:00 00:00:00 ANN Seybol d 2023-01-04 2023-01-04 Outpatient SAIKINYANELI [id number] Yaneli 00:00:00 00:00:00 ANN Seybol d 2022-11-01 2022-11-01 Outpatient SAYANELI TURNER [id number] Yaneli 00:00:00 00:00:00 ANN Seybol d 2022-10-04 2022-10-04 Outpatient SAIKINYANELI [id number] Yaneli 15:00:00 15:00:00 ANN Seybol d 2022-09-26 2022-09-26 Outpatient SAIKINYANELI [id number] Yaneli 00:00:00 00:00:00 ANN Seybol d 2022-09-13 2022-09-13 Outpatient SAIKIYANELI Del Rosario [id number] Yaneli 00:00:00 00:00:00 ANN Seybol d 2022-08-31 2022-08-31 Outpatient BOJORQUEZBROWN [id number] Yaneli 00:00:00 00:00:00 Seybol d 2022-08-22 2022-08-22 Outpatient Phil WOODS [facility] [id number] Univers 13:40:00 14:15:[facility] 2022-08-22 2022-08-22 Imm/Inj Vaccine, Ang Db Cbc Fam [facility] 1. [id number] Univers 13:40:00 13:50:00 Visit David Woods [facility] [id number] [facility] [id number] Lon as ROGER?BLEA [id number] [address] MEDICAL OFFICE BUILDING 2022-08-19 2022-08-19 Outpatient YANELI ALVAREZ [id number] Yaneli 00:00:00 00:00:00 ANN Seybol d 2022-07-30 2022-07-30 Outpatient BOJORQUEZBROWN [id number] Yaneli 09:30:00 09:30:00 Seybol d 2022-05-31 2022-05-31 Outpatient YANELI ALVAREZ [id number] Yaneli 13:30:00 13:30:00 ANN Seybol d 2022-05-25 2022-05-25 Outpatient JACYJENNIFER YANELI FREEMAN [id number] Yaneli 14:00:00 14:00:00 Seybol d 2022-05-24 2022-05-24 Outpatient SAIKIN, YANELI FREEMAN [id number] Yaneli 00:00:00 00:00:00 ANN Seybol d 2022-05-22 2022-05-22 Outpatient YANELI FREEMAN [id number] Yaneli 10:50:00 10:50:00 Seybol d 2022-05-22 2022-05-22 Outpatient BOJORQUEZ, BROWN YANELI FREEMAN [id number] Yaneli 10:30:00 10:30:00 Seybol d 2022-05-17 2022-05-17 Outpatient COMBSTORREY YANELI FREEMAN [id number] Yaneli 13:45:00 13:45:00 Seybol d 2022-05-16 2022-05-16 Outpatient SAIKIN, YANELI FREEMAN [id number] Yaneli 00:00:00 00:00:00 ANN Seybol d 2022-05-16 2022-05-16 Outpatient SAIKIN, YANELI FREEMAN [id number] Yaneli 00:00:00 00:00:00 ANN Seybol d 2022-05-15 2022-05-15 Outpatient LAB47 YANELI FREEMAN [id number] Yaneli 17:00:00 17:00:00 Seybol d 2022-05-15 2022-05-15 Outpatient SAIKIN, YANELI FREEMAN [id number] Yaneli 16:30:00 16:30:00 ANN Seybol d 2022-05-15 2022-05-15 Outpatient YANELI FREEMAN [id number] Yaneli 16:05:00 16:05:00 Seybol d 2022-05-15 2022-05-15 Outpatient SAYANELI TURNER [id number] Yaneli 00:00:00 00:00:00 ANN Seybol d 2022-02-19 2022-02-19 Outpatient SASELINANYANELI [id number] Yaneli 00:00:00 00:00:00 ANN Seybol d 2022-01-11 2022-01-11 Outpatient LAB47 YANELI FREEMAN [id number] Yaneli 15:50:00 15:50:00 Seybol d 2022-01-11 2022-01-11 Office selinaMARTINA del rosario [id number] [id number] Yaneli 14:30:00 15:15:00 Visit Ann Mitchell 350.1.13.13 S eybold 1.2.7.2.686 [id number] 2021-12-26 2021-12-26 Outpatient ERICYANELIJocelyne FREEMAN [id number] Yaneli 00:00:00 00:00:00 MD ADITHYA Seybol d 2021-12-13 2021-12-13 Outpatient YANELI ALVAREZ [id number] Yaneli 10:45:00 10:45:00 ANN Seybol d 2021-10-25 2021-10-25 Outpatient YANELI ALVAREZ [id number] Yaneli 00:00:00 00:00:00 ANN Seybol d 2021-08-25 2021-08-25 Outpatient LAB47 YANELI FREEMAN [id number] Yaneli 15:05:00 15:05:00 Seybol d 2021-08-25 2021-08-25 Office daniel MARTINA [id number] Yaneli 14:15:00 14:30:00 Visit Ann Mitchell 350.1.13.13 S eybold 1.2.7.2.686 [id number] 2021-07-13 2021-07-13 Outpatient YANELI ALVAREZ [id number] Yaneli 00:00:00 00:00:00 ANN Seybol d 2021-07-11 2021-07-11 Outpatient COVID-MODER YANELI FREEMAN [id number] Yaneli 13:30:00 13:30:00 NA BOOSTER Se ybold FORT 2021-05-31 2021-05-31 Outpatient YANELI ALVAREZ [id number] Yaneli 00:00:00 00:00:00 ANN Seybol d 2021-04-26 2021-04-26 Outpatient ANTONIO YANELI FREEMAN [id number] Yaneli 00:00:00 00:00:00 ANN Seybol d 2021-03-12 2021-03-12 Outpatient ANTONIO YANELI FREEMAN [id number] Yaneli 00:00:00 00:00:00 ANN Seybol d 2021-03-02 2021-03-02 Outpatient ANTONIO YANELI FREEMAN [id number] Yaneli 00:00:00 00:00:00 ANN Seybol d 2021-03-01 2021-03-01 Outpatient YIN YANELI FREEMAN [id number] Yaneli 10:00:00 10:00:00 ALYSHA Seybol d 2020-12-29 2020-12-29 Orders Doctor STERLING [id number] [id number] Univers 00:00:00 00:00:00 Only Unassigned, LOBO 350.1.13.10 ity of [place] [facility] 4.2.7.2.686 Lon as [id number] [facility] [address] 2020-10-16 2020-10-16 Outpatient [facility] [id number] Univers 14:55:00 14:55:00 ity of [facility] 2020-09-18 2020-09-18 Outpatient [facility] [id number] Univers 14:50:00 14:50:00 ity [facility] 2020-04-10 2020-04-10 Patient Doctor STERLING 1.2.840.114 [id number] Univers 00:00:00 00:00:00 Secure Msg Unassigned, LOBO 350.1.13.10 ity of [place] [facility] 4.2.7.2.686 Lon as [id number] [facility] 0[address] Branch 2020-04-08 2020-04-08 Laboratory Lab, Adc Fam Pob I [facility] 1.2. 840.114 [id number] Univers 16:50:31 17:10:31 Only Anene, [facility] 350.1.13.10 ity of [place] 4.2.7.2.686 Lon as Professio [id number] [address] Office [address] 2020-04-08 2020-04-08 Outpatient R [facility] [id number] Univers 16:40:00 16:40:00 ity of [facility] 2019-10-08 2019-10-08 Outpatient Haroldo-Mbayo VFP VFP [id number] [facility] 05:55:00 05:55:00 _A_ [id number] Family Practic e 2019-10-08 2019-10-08 Outpatient Haroldo-Mbayo VFP VFP [id number] [facility]202 [facility] 05:55:00 05:55:00 _A_ [id number] Family Practic e Results This patient has no known results.
--- NOTE | 2023-05-28 12:54 | RAD REPORT ---
EXAM DESCRIPTION: US - Scrotum Testicles - 05/28/2023 12:43 pm CLINICAL HISTORY: PAIN COMPARISON: Spine Lumbar Wo Con dated 05/01/2023 FINDINGS: The right testicle 3.9 x 2.5 x 1.7 cm.. No intratesticular masses or evidence of testicula r torsion. The left testicle 3.5 x 2.4 x 1.3 cm. No intratesticular masses or evidence of testicular torsion. Both epididymides are normal in size and appearance. Large hypoechoic structure is seen measuring 4-5 cm the right scrotal sac of unclear etiology. There is significant scrotal wall thickening noted. IMPRESSION: No testicular mass or torsion findings seen. Significant scrotal wall edema and thickening with complex structure measuring 4-5 cm in the region o f the right scrotal sac. This is of unclear etiology but could be related to a hernia. Consider follo w-up CT abdomen and pelvis for further evaluation.
[2023-05-28 14:07] LABS: Absolute Lymphocytes (CBC) 1.2 K/uL (0.7-4.9); Hematocrit 37.7 % (39.6-49.0); Lymphocytes % 12.4 % (15.3-44.8); MCV 86.8 fL (80-100); MPV 7.7 fL (7.6-11.3); Platelets 286 thou/uL (152-406); RBC Red Blood Cell Count 4.34 M/uL (4.33-5.43)
[2023-05-28 14:19] LABS: Potassium 3.8 mEq/L (3.5-5.1)
--- NOTE | 2023-05-28 15:31 | RAD REPORT ---
EXAM DESCRIPTION: CT - Abdomen Pelvis W Contrast - 05/28/2023 2:37 pm CLINICAL HISTORY: evaluate for hernia vs abscess COMPARISON: CT ABD PELVIS W CONTRAST dated 07/11/2013; Scrotum Testicles dated 05/28/2023 TECHNIQUE: Thin cut axial CT imaging of the abdomen and pelvis was performed following intravenous a dministration of 100 mL Isovue 300. Multiplanar reformats were generated and reviewed. All CT scans are performed using dose optimization technique as appropriate and may include automated exposure control or mA/KV adjustment according to patient size. FINDINGS: No suspicious findings in the lung bases. The liver shows a stable 8 millimeter hypoattenuating focus, probably a small cyst, not well characte rized. Spleen, adrenal glands, and pancreas show no suspicious findings. Gallbladder and biliary tree are also without suspicious finding. Symmetric renal function is seen with no hydronephrosis or suspicious renal mass. No dilated bowel loops or bowel wall thickening. Appendix is unremarkable. No free air, free fluid or inflammatory stranding. No hernia, mass or bulky lymphadenopathy. Small reactive right inguinal lymp h nodes, largest measures 1.6 cm in short axis. The urinary bladder is without significant finding. No suspicious bony findings. Marginally enhancing fluid collection measuring 3.2 x 2.5 cm in the inferior/posterior aspect of the scrotum on the right, with adjacent skin thickening/edema concerning for boil or small abscess. IMPRESSION: No acute intra-abdominal process. Right scrotal marginally enhancing 3.2 x 2.5 cm collection as above, concerning boil or small abscess , corresponding to the indeterminate fluid collection noted on the recent scrotal ultrasound. Mildly prominent reactive right inguinal lymph nodes.
--- NOTE | 2023-05-28 17:17 | EDPHYS ---
Physician Documentation [facility] Name: Alexandru Galan Age: 62 yrs Sex: Male : 1960 Arrival Date: 05/28/2023 Time: 11:26 Bed 12 Private MD: ED Physician Polo San HPI: 05/28 17:35 This 62 yrs old Black Male presents to ER via Ambulatory with complaints of Boil. kb 17:35 The patient presents with an abscess of the scrotum. Description: fluctuant, swollen, kb warm. Onset: The symptoms/episode began/occurred 5 day(s) ago. Possible cause(s): unknown. Associated signs and symptoms: Pertinent positives: swelling. Modifying factors: the symptoms are alleviated by nothing, the symptoms are aggravated by pressure, touching. Severity of symptoms: At their worst the symptoms were moderate, in the emergency department the symptoms are unchanged. The patient has not experienced similar symptoms in the past. The patient has not recently seen a physician. Historical: - Allergies: 11:46 NKDA; ap3 - PMHx: 11:46 Diabetes - NIDDM; Hypertension; ap3 - PSHx: 11:46 Neck sx; ap3 - Immunization history:: Client reports receiving the 2nd dose of the Covid vaccine. - Social history:: Smoking status: Patient denies any tobacco usage or history of. ROS: 17:33 Constitutional: Negative for fever, chills, and weight loss, kb 17:33 Skin: Positive for abscess, of the scrotum, 17:33 All other systems are negative, Exam: 17:33 Constitutional: This is a well developed, well nourished patient who is awake, alert, kb and in no acute distress. Head/Face: Normocephalic, atraumatic. ENT: Moist Mucous membranes Cardiovascular: Regular rate Respiratory: Respirations even and unlabored. No increased work of breathing. Talking in full sentences Skin: Warm, dry with normal turgor. Normal color. MS/ Extremity: Pulses equal, no cyanosis. Neurovascular intact. Full, normal range of motion. Neuro: Awake and alert, GCS 15, oriented to person, place, time, and situation. Moves all extremities. Normal gait. 17:33 : Male external genitalia: abscess right side of scrotum, Vital Signs: 11:44 Pulse 81; Resp 18; Pulse Ox 100% ; Weight 94.35 kg; Pain 8/10; ap3 11:47 BP 139 / 81; ap3 17:24 BP 153 / 83; Pulse 84; Resp 18; Pulse Ox 99% on R/A; tm3 11:44 Pain Scale: Adult ap3 MDM: 11:32 Patient medically screened. kb 15:42 Data reviewed: vital signs, nurses notes. Management of patient was discussed with the kb following: [employer]: Called Dr De La Cruz for consult. He is currently in the OR, message left. . 17:34 Differential diagnosis: abscess, allergic reaction, cellulitis, insect bite. kb Consideration of Admission/Observation Patient was admitted/placed on observation. Escalation of care including admission/observation considered. Management of patient was discussed with the following: Naval Marine Engineer: Dr De La Cruz evaluated pt in room and will take to OR for I\T\D. Counseling: I had a detailed discussion with the patient and/or guardian regarding the historical points, exam findings, and any diagnostic results supporting the discharge/admit diagnosis, lab results, radiology results, the need for further work-up and treatment in the hospital. 05/28 12:55 Order name: CBC with Diff; Complete Time: 14:12 kb 05/28 12:55 Order name: Basic Metabolic Panel; Complete Time: 14:19 kb 05/28 11:32 Order name: US Scrotum Testicles; Complete Time: 12:54 kb 05/28 12:55 Order name: CT Abd/Pelvis - IV Contrast Only; Complete Time: 15:32 kb 05/28 12:55 Order name: IV Start; Complete Time: 14:05 kb Administered Medications: 17:15 Drug: morphine IVP or IV 4 mg IVP once over 4 mins Route: IVP; Infused Over: 4 mins; cm10 Site: right antecubital; 17:34 Follow up: Response: No adverse reaction cm10 17:15 Drug: Ondansetron IVP 4 mg IVP once; over 2 minutes Route: IVP; Site: right antecubital;cm10 17:34 Follow up: Response: No adverse reaction cm10 17:34 Drug: ceFAZolin IVPB 1 grams IVPB once Route: IVPB; Site: right antecubital; cm10 17:35 Follow up: IV Status: Infusion continued upon admission cm10 Disposition Summary: 05/28/23 17:16 Hospitalization Ordered Notes: Hospitalization Status: Observation kb Provider: Timothy De La Cruz Location: Operating Room kb Condition: Stable kb Problem: new kb Symptoms: are unchanged kb Bed/Room Type: Standard kb Room Assignment: kb Diagnosis - Abscess of scrotum kb Forms: - Medication Reconciliation Form kb - SBAR form kb - Leadership Thank You Letter kb Signatures: Dispatcher [employer] EDIwona Delatorre, Malathi Hyde RN RN ap3 Melinda Askew RN RN cm10
--- NOTE | 2023-05-28 17:17 | ER ---
Nurse's Notes [facility] Name: Alexandru Galan Age: 62 yrs Sex: Male : 1960 Arrival Date: 05/28/2023 Time: 11:26 Bed 12 Private MD: Diagnosis: Abscess of scrotum Presentation: 05/28 11:44 Chief complaint: Patient states: he has a boil on the right side of his scrotum. ap3 patient reports noticing the boil Saturday05/24/2023. Coronavirus screen: At this time, the client does not indicate any symptoms associated with coronavirus-19. Ebola Screen: No symptoms or risks identified at this time. Initial Sepsis Screen: Does the patient meet any 2 criteria? No. Patient's initial sepsis screen is negative. Does the patient have a suspected source of infection? Yes: Skin breakdown/wound. Risk Assessment: Do you want to hurt yourself or someone else? Patient reports no desire to harm self or others. Onset of symptoms was May 24, 2023. 11:44 Method Of Arrival: Ambulatory ap3 11:44 Acuity: NACHO 3 ap3 Triage Assessment: 11:46 General: Appears uncomfortable, Behavior is calm, cooperative, appropriate for age. ap3 Pain: Complains of pain in groin Pain currently is 8 out of 10 on a pain scale. Neuro: Level of Consciousness is awake, alert, obeys commands, Oriented to person, place, time, situation. Derm: Reports boil on left scrotal area. Historical: - Allergies: 11:46 NKDA; ap3 - PMHx: 11:46 Diabetes - NIDDM; Hypertension; ap3 - PSHx: 11:46 Neck sx; ap3 - Immunization history:: Client reports receiving the 2nd dose of the Covid vaccine. - Social history:: Smoking status: Patient denies any tobacco usage or history of. Screenin:47 [facility] ED Fall Risk Assessment (Adult) History of falling in the last 3 months, ap3 including since admission No falls in past 3 months (0 pts). Abuse screen: Denies threats or abuse. Nutritional screening: No deficits noted. Tuberculosis screening: No symptoms or risk factors identified. Assessment: 17:15 Reassessment: Dr. De La Cruz at bedside consenting patient for surgery at this time. cm10 17:34 Reassessment: PT being transported to surgery via wheelchair at this time. cm10 Vital Signs: 11:44 Pulse 81; Resp 18; Pulse Ox 100% ; Weight 94.35 kg; Pain 8/10; ap3 11:47 BP 139 / 81; ap3 17:24 BP 153 / 83; Pulse 84; Resp 18; Pulse Ox 99% on R/A; tm3 11:44 Pain Scale: Adult ap3 ED Course: 11:27 Patient arrived in ED. rg4 11:27 Iwona Galan FNP-C is PHCP. kb 11:27 Polo San MD is Attending Physician. kb 11:46 Triage completed. ap3 11:47 Arm band placed on right wrist. ap3 12:41 US Scrotum Testicles In Process Unspecified. EDMS 14:04 Amado Greenberg, MICHEAL is Primary Nurse. jl7 14:05 Patient has correct armband on for positive identification. Placed in gown. Bed in low jl7 position. Call light in reach. Side rails up X 1. Provided Education on: IV insertion and labs. 14:05 Initial lab(s) drawn, by me, sent to lab. Inserted saline lock: 20 gauge in right jl7 antecubital area, using aseptic technique. Blood collected. 14:39 CT Abd/Pelvis - IV Contrast Only In Process Unspecified. EDMS 17:15 Timothy De La Cruz MD is Hospitalizing Provider. kb 17:23 EKG done, by ED staff. tm3 17:36 No provider procedures requiring assistance completed. Patient admitted, IV remains in cm10 place. Administered Medications: 17:15 Drug: morphine IVP or IV 4 mg IVP once over 4 mins Route: IVP; Infused Over: 4 mins; cm10 Site: right antecubital; 17:34 Follow up: Response: No adverse reaction cm10 17:15 Drug: Ondansetron IVP 4 mg IVP once; over 2 minutes Route: IVP; Site: right antecubital;cm10 17:34 Follow up: Response: No adverse reaction cm10 17:34 Drug: ceFAZolin IVPB 1 grams IVPB once Route: IVPB; Site: right antecubital; cm10 17:35 Follow up: IV Status: Infusion continued upon admission cm10 Medication: 14:05 VIS not applicable for this client. jl7 Outcome: 17:16 Decision to Hospitalize by Provider. kb 17:35 Admitted to OR accompanied by nurse, via wheelchair, cm10 17:35 Condition: good 17:35 Instructed on the need for admit, 17:36 Patient left the ED. cm10 Signatures: Dispatcher [employer] EDMS Iwona Galan, ASSISTANT HVAC MECHANIC-C ASSISTANT HVAC MECHANIC-CkRobb Johnson tm3 Amina Wilks4 Amado Greenberg RN RN jl7 Malathi Oquendo RN RN brien3 Melinda Askew, RN RN cm10
[2023-05-28] MEDS ORDERED: ONDANSETRON 4 MG/2 ML VIAL ONE ×2 (17:20→17:59)
[2023-05-28] MEDS ORDERED: MORPHINE 4 MG/ML SYR ONE (17:20)
--- NOTE | 2023-05-28 17:32 | P.CNS ---
Date of Consult: 05/28/23 62-year-old gentleman with DM 2 and hypertension presents with a 2-day history of right hemiscrotal pain associated with a "boil". He was observing it over the last 2 days and treating it with [id number] boil ease without success. He denied any associated fever or chills. He came to the emergency department because the pain progressively worsened, and the "boil" continue to enlarge. His most recent A1c was 8, but he had blood work done recently. Past medical history as above Past surgical history: C-spine surgery He denies any family history of urologic malignancy He smoked until age 20 about 5 years 1 pack/day No known drug allergies Examination: Well-appearing, well-developed, well-nourished, no acute distress Alert, awake, oriented x3 No dyspnea or sign of respiratory distress No cervical/supraclavicular adenopathy or thyromegaly Abdomen soft, nontender, nondistended Genitalia: Circumcised without lesion, orthotopic meatus patent. Testes bilaterally descended. Right hemiscrotum with approximately 3 cm abscess with some necrotic skin overlying a component and tender at the periphery. No crepitus. Lower extremities without edema or Homans' sign WBC 9.8, hemoglobin 12.8, platelets 286, creatinine 1.27 Assessment and recommendation: 62-year-old gentleman with DM2 and hypertension with right hemiscrotal pain associated with a approximately 2 to 3 cm scrotal abscess. -He has been n.p.o. since 10 AM this morning -EKG -Operative I&D. Risks and side effects discussed as well as postoperative care potentially required. Consent signed. -Anticipate discharge today
[2023-05-28] MEDS ORDERED: CEFAZOLIN SODIUM 1 GM/VIAL ONE (17:42)
[2023-05-28] MEDS ORDERED: NA CHLORIDE 0.9% 100 ML ONE (17:42)
[2023-05-28] MEDS ORDERED: NA CHLORIDE 0.9% 1,000 ML ONE (17:49)
[2023-05-28] MEDS ORDERED: MIDAZOLAM HCL 2 MG/2 ML INJ ONE (17:58)
[2023-05-28] MEDS ORDERED: FENTANYL CITR 100 MCG/2 ML ONE (17:58)
[2023-05-28] MEDS ORDERED: propofoL 200 MG/20 ML VIAL IV ONE (17:58)
[2023-05-28] MEDS ORDERED: dexAMETHasone 4 MG/ML VIAL ONE (17:59)
[2023-05-28] MEDS ORDERED: LIDOCAINE 1% MPF 5 ML VIAL ONE (17:59)
[2023-05-28] MEDS ORDERED: NA CHLORIDE 0.9% 1,000 ML IV SCH (18:00)
[2023-05-28] MEDS ORDERED: BUPIVACAINE 0.5% PF 10 ML VIAL ONE (18:18)
[2023-05-28] MEDS ORDERED: KETOROLAC 30 MG/ML INJ ONE (18:18)
[2023-05-28] MEDS ORDERED: HYDROCODONE/APAP 5/325 MG TAB PO PRN (18:27)
--- NOTE | 2023-05-28 18:58 | P.OP ---
Date of Service: 05/28/23 Preoperative diagnosis: Right hemiscrotal abscess, approximately 4 cm Postoperative diagnoses: Same Principal procedures: Incision and drainage of large right hemiscrotal abscess Debridement of necrotic skin and base of abscess Indication for procedure: 62-year-old gentleman with DM2 and hypertension with right hemiscrotal pain ass ociated with a approximately 2 to 3 cm scrotal abscess. Procedure note: The patient was consented in the emergency department before being transferred to the preoperative holding area and then eventually to the operative suite where general anesthesia was induced. He was given Ancef IV antimicrobial prophylaxis, and pneumoboots were provided for DVT prophylaxis. He was placed supine on the operative table, padded and secured appropriately. His genitalia was prepped with Betadine and draped in standard fashion. The case was begun using half percent Marcaine instilled subcutaneously around the periphery of the abscess cavity and over the central component of the abscess skin for a total of about 5 to 6 cc administered. I then incised the abscess initially horizontally and entered a cavity filled with pus and very anaerobic smelling purulent drainage. I thus performed a cruciate incision to widely open that abscess cavity and we aspirated all of the pus from within before using a culture swab, aerobic and anaerobic, to sample the base of the abscess cavity and send for sensitivities. I then utilized a curette to debride the base of the abscess, which was thickened and reactive in nature as well as any of the more superficial tissues. Bovie electrocautery was used to excise some of the thickened dartos layers and also to fulgurate some of the bleeding skin within the abscess cavity. Copious irrigation was performed using saline. Additional fulguration was performed where necessary. I then injected the remainder of the Marcaine for a total of 10 cc for local anesthesia before packing the abscess cavity with quarter inch Nu Gauze and applying 4 x 4's over it. The patient was then awakened from general anesthesia, transferred to a stretcher, then transferred to the recovery room in good condition after mesh underwear were placed to hold the gauze in place. Complications: None Discharge disposition: I counseled the patient and provided instructions for him to perform twice daily sitz bath's followed by packing the abscess cavity with Nu Gauze and covering it with 4 x 4's until the cavity closes by secondary intention. I provided prescriptions for ciprofloxacin and Flagyl for the suspected anaerobic infection, for 10 days and 7 days, respectively, until the initial healing of the abscess cavity begins. Follow-up culture swabs sent today intraoperatively in case antimicrobial therapy needs to be adjusted. Pain medication, Spring, was also provided. Follow-up in 2 to 4 weeks interval assessment as an outpatient.
[2023-05-28] MEDS ORDERED: HYDROCODONE/APAP 5/325 MG TAB ONE (19:12)
[2023-05-28 19:19] VITALS: BP 113/72; TEMP 97; O2SAT 99
--- NOTE | 2023-05-29 12:26 | EKG ---
Test Date: 2023-05-28 Test Time: 17:21:00 Date Night Caregiver: ANSON MEASUREMENT RESULTS: Intervals: Rate: 83 RI: 160 QRSD: 80 QT: 340 QTc: 399 [place]: P: 38 RI: 160 QRS: 30 T: 15 INTERPRETIVE STATEMENTS: Normal sinus rhythm Normal ECG Compared to ECG 01/27/2017 07:25:55 No significant changes Electronically Signed On 05-29-23 12:23:50 CDT by Spenser Bailey
== END 2023-05-28 19:34 | disposition home or self-care (01) ==
LOC: ER 11:26 → ERHOLD 17:19
PROVIDERS: ADMIT Urology; ATTEND Urology
PROC: 0JBB0ZZ Excision of Perineum Subcutaneous Tissue and Fascia, Open Approach (ICD-10-PCS; principal; 2023-05-28 18:00)
DX: N49.2 Inflammatory disorders of scrotum (principal); E11.9 Type 2 diabetes mellitus without complications; I10 Essential (primary) hypertension; N50.82 Scrotal pain; N49.3 Fournier gangrene; B95.1 Streptococcus, group B, as the cause of diseases classified elsewhere
CPT/HCPCS: 36415; 74177; 76870; 80048; 82947; 85025; 87070; 87075; 87077; 87186; 87205; 93005; 96374; 96375; 99285; G0378; J0690; J1100; J2001; J2250; J2405; J2704; J3010; J7030; Q9967

== ENCOUNTER 2024-04-14 08:28 | Emergency (ER) | payer OTHER ==
[2024-04-14] MEDS ORDERED: IBUPROFEN 200 MG TAB PO ONE (10:23)
[2024-04-14] MEDS ORDERED: CODEINE 30MG/APAP 300MG TAB ONE (10:23)
[2024-04-14] MEDS ORDERED: IBUPROFEN 400 MG TAB ONE (10:23)
--- NOTE | 2024-04-14 11:04 | RAD REPORT ---
EXAM DESCRIPTION: RAD - Knee Left 3 View - 04/14/2024 10:28 am CLINICAL HISTORY: PAIN COMPARISON: No comparisons TECHNIQUE: Left knee, 3 views. FINDINGS: No fracture, dislocation or periosteal reaction.Moderate suprapatellar joint effusion seen . Mild tricompartmental degenerative changes, with mild medial weight-bearing joint space loss. Enthe sopathy at the quadriceps tendon attachment. No soft tissue abnormality. Clinical concerns for internal derangement or occult bony injury could be further assessed with MR im aging. IMPRESSION: Moderate joint effusion. Mild tricompartmental osteoarthritic changes. No acute osseous abnormality identified.
--- NOTE | 2024-04-14 11:17 | EDPHYS ---
Physician Documentation [facility] Name: Alexandru Galan Age: 63 yrs Sex: Male : 1960 Arrival Date: 04/14/2024 Time: 08:28 Bed 17 Private MD: ED Physician Pool San HPI: 04/14 08:45 This 63 yrs old Black Male presents to ER via Unassigned with complaints of Knee Injury.rn 08:45 The patient presents with decreased range of motion, an injury, pain. The complaints rn affect the left knee. Onset: The symptoms/episode began/occurred yesterday. Modifying factors: The symptoms are alleviated by remaining still, the symptoms are aggravated by movement, weight bearing, bending knee. Associated signs and symptoms: Pertinent negatives weakness. Severity of symptoms: At their worst the symptoms were moderate, in the emergency department the symptoms have improved. The patient has not experienced similar symptoms in the past. Patient reports yesterday was working outside, accidentally stepped in a hole and twisted his knee. No direct trauma to the knee. Noticed swelling yesterday that has improved today but still hurts to bend.. Historical: - Allergies: 08:48 NKDA; db - PMHx: 08:48 Diabetes - NIDDM; Hypertension; db - PSHx: 08:48 Neck sx; db - Immunization history:: Adult Immunizations unknown. - Infectious Disease History:: Denies. - Family history:: not pertinent. - Social history:: Smoking status: Patient denies any tobacco usage or history of. - Hospitalizations: : No recent hospitalization is reported. ROS: 08:45 Constitutional: Negative for fever, chills, and weight loss, MS/Extremity: Positive for rn left knee pain and swelling Neuro: Negative for weakness or numbness Exam: 08:45 Constitutional: This is a well developed, well nourished patient who is awake, alert, rn and in no acute distress. MS/ Extremity: Pulses equal, no cyanosis. Neurovascular intact. Mild tenderness inferior anterior knee with mild knee effusion appreciated. No discoloration. No warmth. No open wound. Vital Signs: 08:40 BP 170 / 130; Pulse 76; Resp 16; Temp 98.7(O); Pulse Ox 100% on R/A; Weight 93.44 kg; db Height 5 ft. 8 in. ; 10:00 BP 146 / 86; Pulse 63; Pulse Ox 100% on R/A; Pain 8/10; tm6 11:29 BP 146 / 81; Pulse 67; Resp 17; Temp 98.7; Pulse Ox 98% on R/A; Pain 0/10; tm6 08:40 Body Mass Index 31.32 (93.44 kg, 172.72 cm) db 10:00 Pain Scale: Adult tm6 11:29 Pain Scale: Adult tm6 MDM: 08:34 Patient medically screened. rn 10:23 Independent interpretation of the following test(s) in the Emergency Department X-Ray: rn My interpretation is X-ray left knee images negative for acute fracture or dislocation per my interpretation. 11:16 Differential diagnosis: closed fracture, contusion. Data reviewed: vital signs, nurses rn notes, radiologic studies, plain films, and as a result, I will discharge patient. Counseling: I had a detailed discussion with the patient and/or guardian regarding the historical points, exam findings, and any diagnostic results supporting the discharge/admit diagnosis, radiology results, the need for outpatient follow up, to return to the emergency department if symptoms worsen or persist or if there are any questions or concerns that arise at home. Special discussion: I discussed with the patient/guardian in detail that at this point there is no indication for admission to the hospital. It is understood, however, that if the symptoms persist or worsen the patient needs to return immediately for re-evaluation. Further emergent ED testing is not indicated at this point in time. I discussed with the patient/guardian in detail the need to arrange with the PCP or specialist further outpatient testing, MRI, Based on the history and exam findings, there is no indication for further emergent testing or inpatient evaluation. I discussed with the patient/guardian the need to see the orthopedic surgeon for further evaluation of the symptoms. 04/14 08:44 Order name: XRAY Knee LEFT 3 view; Complete Time: 11:15 rn 04/14 11:16 Order name: Sinan wrap-joint; Complete Time: 11:29 rn Administered Medications: 10:26 Drug: Ibuprofen PO 600 mg PO once Route: PO; tm6 11:23 Follow up: Response: No adverse reaction; Pain is decreased tm6 10:26 Drug: Acetaminophen-Codeine PO (300 mg-30 mg) 1 tablet PO once; RASS on ADMIN: Combtv4, tm6 Very Agttd3, Agttd2, Rstlss1, AlertClm0, Drwsy-1, Lt Sdtn-2, Mod Sdtn-3, Dp Sdtn-4, UnArsble-5 Route: PO; 11:23 Follow up: Response: No adverse reaction; Pain is decreased tm6 Disposition Summary: 04/14/24 11:17 Discharge Ordered Notes: Location: Home rn Problem: new rn Symptoms: have improved rn Condition: Stable rn Diagnosis - Contusion of left knee rn - Effusion, left knee rn Followup: rn - With: Demetrius Patel MD - When: As needed - Reason: Recheck today's complaints, Re-evaluation by your physician Discharge Instructions: - Discharge Summary Sheet rn - Contusion rn - Knee Effusion rn - Acute Knee Pain, Adult rn Forms: - Medication Reconciliation Form rn - Antibiotic rn heart - Prescription Opioid Use rn - Patient Portal Instructions rn - Leadership Thank You Letter rn Prescriptions: - Tramadol 50 mg Oral Tablet - take 1 tablet ORAL route every 8 hours as needed; 12 tablet; Refills: 0, rn Product Selection Permitted Signatures: Dispatcher [employer] Polo Oliver MD MD rn Benton, Danielle, RN RN db Masterson, Tawney, RN RN tm6
--- NOTE | 2024-04-14 11:17 | ER ---
Nurse's Notes [facility] Name: Alexandru Galan Age: 63 yrs Sex: Male : 1960 Arrival Date: 04/14/2024 Time: 08:28 Bed 17 Private MD: Diagnosis: Contusion of left knee;Effusion, left knee Presentation: 04/14 08:40 Chief complaint: Patient states: LEFT KNEE PAIN AFTER TWISTING KNEE FROM STEPPING IN A db HOLE YESTERDAY MORNING. Coronavirus screen: Client denies travel out of the [place] in the last 14 days. At this time, the client does not indicate any symptoms associated with coronavirus-19. Ebola Screen: Patient negative for fever greater than or equal to 101.5 degrees Fahrenheit, and additional compatible Ebola Virus Disease symptoms Patient denies exposure to infectious person. Patient denies travel to an Ebola-affected area in the 21 days before illness onset. No symptoms or risks identified at this time. Initial Sepsis Screen: Does the patient meet any 2 criteria? No. Patient's initial sepsis screen is negative. Does the patient have a suspected source of infection? No. Patient's initial sepsis screen is negative. Risk Assessment: Do you want to hurt yourself or someone else? Patient reports no desire to harm self or others. Onset of symptoms was April 13, 2024. 08:40 Method Of Arrival: Ambulatory db 08:40 Acuity: NACHO 4 db Triage Assessment: 08:48 General: Appears in no apparent distress. comfortable, Behavior is calm, cooperative. db Pain: Complains of pain in left knee. Neuro: Level of Consciousness is awake, alert, obeys commands, Oriented to person, place, time, situation. Musculoskeletal: Range of motion: limited in left knee. Injury Description: Bruise. Historical: - Allergies: 08:48 NKDA; db - PMHx: 08:48 Diabetes - NIDDM; Hypertension; db - PSHx: 08:48 Neck sx; db - Immunization history:: Adult Immunizations unknown. - Infectious Disease History:: Denies. - Family history:: not pertinent. - Social history:: Smoking status: Patient denies any tobacco usage or history of. - Hospitalizations: : No recent hospitalization is reported. Screenin:00 [facility] ED Fall Risk Assessment (Adult) History of falling in the last 3 months, tm6 including since admission No falls in past 3 months (0 pts) Confusion or Disorientation No (0 pts) Intoxicated or Sedated No (0 pts) Impaired Gait No (0 pts) Mobility Assist Device Used No (0 pt) Altered Elimination No (0 pt) Score/Fall Risk Level 0 - 2 = Low Risk Oriented to surroundings, Maintained a safe environment, Educated pt \T\ family on fall prevention, incl call for assistance when getting out of bed. Abuse screen: Denies threats or abuse. Denies injuries from another. Nutritional screening: No deficits noted. Tuberculosis screening: No symptoms or risk factors identified. Assessment: 10:00 General: Appears in no apparent distress. Behavior is calm, cooperative. Pain: tm6 Complains of pain in left knee Pain does not radiate. Pain currently is 8 out of 10 on a pain scale. Pain began 1 day ago. Pain: Aggravated by increased activity, repositioning, weight bearing. Neuro: Level of Consciousness is awake, alert, obeys commands, Oriented to person, place, time, situation. Cardiovascular: Patient's skin is warm and dry. Respiratory: Airway is patent Respiratory effort is even, unlabored, Respiratory pattern is regular, symmetrical. GI: No signs and/or symptoms were reported involving the gastrointestinal system. Abdomen is flat, non-distended. : No signs and/or symptoms were reported regarding the genitourinary system. EENT: No signs and/or symptoms were reported regarding the EENT system. Derm: No signs and/or symptoms reported regarding the dermatologic system. Musculoskeletal: Reports pain in left knee since yesterday. Pain is 8 out of 10 on a pain scale. 11:30 Reassessment: Patient appears in no apparent distress at this time. Patient and/or tm6 family updated on plan of care and expected duration. Pain level reassessed. Patient is alert, oriented x 3, equal unlabored respirations, skin warm/dry/pink. Patient states feeling better. Vital Signs: 08:40 BP 170 / 130; Pulse 76; Resp 16; Temp 98.7(O); Pulse Ox 100% on R/A; Weight 93.44 kg; db Height 5 ft. 8 in. ; 10:00 BP 146 / 86; Pulse 63; Pulse Ox 100% on R/A; Pain 8/10; tm6 11:29 BP 146 / 81; Pulse 67; Resp 17; Temp 98.7; Pulse Ox 98% on R/A; Pain 0/10; tm6 08:40 Body Mass Index 31.32 (93.44 kg, 172.72 cm) db 10:00 Pain Scale: Adult tm6 11:29 Pain Scale: Adult tm6 ED Course: 08:32 Patient arrived in ED. ra3 08:34 Polo San MD is Attending Physician. rn 08:39 Jacqueline Katz, MICHEAL is Primary Nurse. db 08:47 Triage completed. db 08:48 Arm band placed on Patient placed in an exam room. db 10:00 Patient has correct armband on for positive identification. Bed in low position. Call tm6 light in reach. Side rails up X 1. Provided Education on: use of call thomason. Client placed on continuous cardiac and pulse oximetry monitoring. NIBP monitoring applied. Pulse ox on. NIBP on. Door closed. Noise minimized. Pillow given. 10:14 Adonis Montgomery, RN is Primary Nurse. tm6 10:30 XRAY Knee LEFT 3 view In Process Unspecified. EDMS 11:16 Demetrius Patel MD is Referral Physician. rn 11:29 No provider procedures requiring assistance completed. Patient did not have IV access tm6 during this emergency room visit. Sinan wrap to left knee. Administered Medications: 10:26 Drug: Ibuprofen PO 600 mg PO once Route: PO; tm6 11:23 Follow up: Response: No adverse reaction; Pain is decreased tm6 10:26 Drug: Acetaminophen-Codeine PO (300 mg-30 mg) 1 tablet PO once; RASS on ADMIN: Combtv4, tm6 Very Agttd3, Agttd2, Rstlss1, AlertClm0, Drwsy-1, Lt Sdtn-2, Mod Sdtn-3, Dp Sdtn-4, UnArsble-5 Route: PO; 11:23 Follow up: Response: No adverse reaction; Pain is decreased tm6 Medication: 10:00 VIS not applicable for this client. tm6 Outcome: 11:17 Discharge ordered by . rn 11:30 Discharged to home ambulatory, with family, tm6 11:30 Condition: stable 11:30 Discharge instructions given to patient, family, Instructed on discharge instructions, follow up and referral plans. medication usage, Demonstrated understanding of instructions, follow-up care, medications, Prescriptions given X 1, 11:30 Patient left the ED. tm6 Signatures: Dispatcher [employer] EDMS Polo San MD MD rn Benton, Danielle, RN RN db Masterson, Tawney, RN RN tm6 Neva Murillo ra3
[2024-04-14 11:35] VITALS: TEMP 98.7
[2024-04-14 11:37] VITALS: BP 146/81; O2SAT 98
== END 2024-04-14 11:30 | disposition home or self-care (01) ==
LOC: ER 08:28
DX: S80.02XA Contusion of left knee, initial encounter (principal); M25.462 Effusion, left knee
CPT/HCPCS: 99284

== ENCOUNTER 2024-08-04 07:48 | Emergency (ER) | payer OTHER ==
[2024-08-04 08:34] LABS: SARS-CoV-2 Antigen CONTROL BLUE LINE VIS/BG OK
[2024-08-04 08:35] LABS: SARS-CoV-2 Antigen Rapid Res Positive (Negative)
--- NOTE | 2024-08-04 08:37 | RAD REPORT ---
EXAMINATION: ONE VIEW CHEST XR CLINICAL INDICATION: COUGH TECHNIQUE: Frontal chest projection is submitted. Examination is limited by patient positioning and t echnique. COMPARISON: 08/22/2017 FINDINGS: Nonspecific peribronchial thickening without focal consolidation could represent a viral or inflammat ory process. The heart is normal in size. No displaced fractures identified.
--- NOTE | 2024-08-04 08:42 | ER ---
Nurse's Notes [facility] Name: Alexandru Galan Age: 63 yrs Sex: Male : 1960 Arrival Date: 08/04/2024 Time: 07:48 Bed 4 Private MD: Diagnosis: SARS-associated coronavirus as the cause of diseases classified elsewhere Presentation: 08/04 07:57 Chief complaint: Patient states: Cough, congestion, low grade fever since Saturday. ll1 Coronavirus screen: Client denies travel out of the [place] in the last 14 days. congestion, cough unrelated to allergies, headache, muscle pain, runny nose, Client presents with at least one sign or symptom that may indicate coronavirus-19. Standard/surgical mask placed on the client. Ebola Screen: Patient denies travel to an Ebola-affected area in the 21 days before illness onset. Initial Sepsis Screen: Does the patient meet any 2 criteria? No. Patient's initial sepsis screen is negative. Does the patient have a suspected source of infection? No. Patient's initial sepsis screen is negative. Risk Assessment: Do you want to hurt yourself or someone else? Patient reports no desire to harm self or others. Onset of symptoms was August 01, 2024. 07:57 Method Of Arrival: Ambulatory ll1 07:57 Acuity: NACHO 4 ll1 Triage Assessment: 07:58 General: Appears in no apparent distress. Behavior is calm, cooperative, appropriate ll1 for age. General: Reports fever for fatigue for. Pain: Denies pain. Neuro: Reports headache. Respiratory: Reports cough that is. Historical: - Allergies: 07:57 NKDA; ll1 - PMHx: 07:57 Diabetes - NIDDM; Hypertension; ll1 - PSHx: 07:57 Neck sx; ll1 - Immunization history:: Adult Immunizations up to date. - Infectious Disease History:: Denies. - Social history:: Smoking status: Patient denies any tobacco usage or history of. Screenin:49 [facility] ED Fall Risk Assessment (Adult) History of falling in the last 3 months, ll1 including since admission No falls in past 3 months (0 pts) Confusion or Disorientation No (0 pts) Intoxicated or Sedated No (0 pts) Impaired Gait No (0 pts) Mobility Assist Device Used No (0 pt) Altered Elimination No (0 pt) Score/Fall Risk Level 0 - 2 = Low Risk Maintained a safe environment, Hourly rounding (assess needs \T\ fall precautionary measures) done. Abuse screen: Denies threats or abuse. Nutritional screening: No deficits noted. Tuberculosis screening: No symptoms or risk factors identified. Assessment: 08:48 Reassessment: No changes from previously documented assessment. Patient and/or family ll1 updated on plan of care and expected duration. Pain level reassessed. Patient is alert, oriented x 3, equal unlabored respirations, skin warm/dry/pink. Vital Signs: 07:57 BP 151 / 84; Pulse 71; Resp 16; Temp 98.2(O); Pulse Ox 97% on R/A; Weight 95.71 kg; ll1 Height 5 ft. 9 in. ; Pain 0/10; 08:48 BP 128 / 89; Pulse 76; Resp 16; Pulse Ox 98% on R/A; ll1 07:57 Body Mass Index 31.16 (95.71 kg, 175.26 cm) ll1 07:57 Pain Scale: Adult ll1 ED Course: 07:50 Patient arrived in ED. im 07:52 Jona Lopez MD is Attending Physician. ec2 07:56 Brinana Colunga, MICHEAL is Primary Nurse. ll1 07:57 Arm band placed on Patient placed in an exam room, on a stretcher. ll1 07:58 Triage completed. ll1 08:00 Patient has correct armband on for positive identification. Provided Education on: ER ll1 procedures and process. 08:14 COVID swab sent to lab. Flu and/or RSV swab sent to lab. aa5 08:15 Door closed. Noise minimized. Lights dimmed. Pt declined warm blanket. aa5 08:24 CXR XRAY In Process Unspecified. EDMS 08:49 No provider procedures requiring assistance completed. Patient did not have IV access ll1 during this emergency room visit. Administered Medications: No medications were administered Medication: 08:50 VIS not applicable for this client. ll1 Outcome: 08:42 Discharge ordered by . ec2 08:49 Discharged to home ambulatory, ll1 08:49 Condition: stable 08:49 Discharge instructions given to patient, Instructed on discharge instructions, follow up and referral plans. medication usage, Demonstrated understanding of instructions, follow-up care, medications, Prescriptions given X 1, 08:50 Patient left the ED. ll1 Signatures: Dispatcher [employer] Ashlyn Cunningham RN RN aa5 Brianna Colunga RN RN ll1 Uma Solano Edwin, MD MD ec2
--- NOTE | 2024-08-04 08:42 | EDPHYS ---
Physician Documentation [facility] Name: Alexandru Galan Age: 63 yrs Sex: Male : 1960 Arrival Date: 08/04/2024 Time: 07:48 Bed 4 Private MD: ED Physician Jona Lopez HPI: 08/04 08:37 This 63 yrs old Black Male presents to ER via Ambulatory with complaints of Chest ec2 Congestion. 08:37 Patient arrives today for evaluation of upper respiratory symptoms. Patient reports ec2 having cough and congestion ongoing for approximately 3 days. Reports no difficulty breathing, no fevers or chills, nausea or vomiting. Reports history of hypertension and diabetes.. Historical: - Allergies: 07:57 NKDA; ll1 - PMHx: 07:57 Diabetes - NIDDM; Hypertension; ll1 - PSHx: 07:57 Neck sx; ll1 - Immunization history:: Adult Immunizations up to date. - Infectious Disease History:: Denies. - Social history:: Smoking status: Patient denies any tobacco usage or history of. ROS: 08:37 Constitutional: as per hpi ec2 Exam: 08:37 Constitutional: GEN: NAD Head: atraumatic Eyes: EOMI Ears: External ears are ec2 normal. CV: regular rate LUNGS: no respiratory distress, no wheezes or rales or rhonchi ABD: non-distended SKIN: no evidence of rashes MSK: no evidence of trauma Vital Signs: 07:57 BP 151 / 84; Pulse 71; Resp 16; Temp 98.2(O); Pulse Ox 97% on R/A; Weight 95.71 kg; ll1 Height 5 ft. 9 in. ; Pain 0/10; 08:48 BP 128 / 89; Pulse 76; Resp 16; Pulse Ox 98% on R/A; ll1 07:57 Body Mass Index 31.16 (95.71 kg, 175.26 cm) ll1 07:57 Pain Scale: Adult ll1 MDM: 07:52 Medical Screening Exam initiated ec2 08:39 Data reviewed: vital signs, nurses notes. ED course: Patient arrives today for ec2 evaluation of URI symptoms. Examination is unrevealing. Chest x-ray independently reviewed and interpreted by me, shows no acute intrathoracic process. Also ordered viral swabs. Differential diagnoses include processes such as viral infection, pneumonia.. 08:42 ED course: Patient is COVID-positive, negative for flu. Will prescribe Paxlovid given ec2 the patient's age and comorbid's. Return precautions given. 08/04 08:07 Order name: Influenza Screen (a \T\ B); Complete Time: 08:41 ec2 08/04 08:07 Order name: SARS RAPID; Complete Time: 08:39 ec2 08/04 08:07 Order name: CXR XRAY; Complete Time: 08:39 ec2 Administered Medications: No medications were administered Disposition Summary: 08/04/24 08:42 Discharge Ordered Notes: Location: Home ec2 Condition: Stable ec2 Diagnosis - SARS-associated coronavirus as the cause of diseases classified elsewhere ec2 Followup: ec2 - With: Private Physician - When: - Reason: Re-evaluation by your physician Discharge Instructions: - Discharge Summary Sheet ec2 - COVID-19 ec2 Forms: - Medication Reconciliation Form ec2 - Antibiotic Education ec2 - Prescription Opioid Use ec2 - Patient Portal Instructions ec2 - Leadership Thank You Letter ec2 Prescriptions: - Paxlovid 300 mg (150 mg x 2)-100 mg Oral Tablet, Dose Pack - take 1 dose pack ORAL route per package directions; 1 Pack; Refills: 0, Product ec2 Selection Permitted Signatures: Dispatcher [employer] Brianna Quezada, MICHEAL RN ll1 Jona Lopez MD MD ec2
[2024-08-04 09:17] VITALS: TEMP 98.2
[2024-08-04 09:18] VITALS: BP 128/89; O2SAT 98
== END 2024-08-04 08:50 | disposition home or self-care (01) ==
LOC: ER 07:48
DX: U07.1 COVID-19 (principal); B97.21 SARS-associated coronavirus as the cause of diseases classified elsewhere; E11.9 Type 2 diabetes mellitus without complications; I10 Essential (primary) hypertension
CPT/HCPCS: 36415; 71045; 87804; 87811; 99283

== ENCOUNTER 2025-03-18 14:15 | Inpatient (IN) | payer OTHER ==
[2025-03-18 15:05] LABS: Absolute Lymphocytes (CBC) 1.2 K/uL (0.7-4.9); Hematocrit 38.9 % (39.6-49.0); Hemoglobin 13.4 g/dL (13.6-17.9); MCH 29.7 pg (27.0-35.0); MCHC 34.4 g/dL (32.0-36.0); MCV 86.4 fL (80-100); MPV 7.6 fL (7.6-11.3); Nucleated RBC Absolute Count 0.0 (0-0); Nucleated Red Blood Cells % 0.0 % (0-0); RBC Red Blood Cell Count 4.50 M/uL (4.33-5.43); White Blood Count 8.10 thou/uL (4.3-10.9)
--- NOTE | 2025-03-18 15:30 | RAD REPORT ---
EXAMINATION: ONE VIEW CHEST XR CLINICAL INDICATION: Male, 64 years old.,CHEST PAIN TECHNIQUE: Frontal chest projection is submitted. Examination is limited by patient positioning and t echnique. COMPARISON: 08/04/2024 FINDINGS: The lungs are grossly clear although suboptimal inspiratory effort somewhat limits evaluation. No pn eumothorax or sizable effusion. The heart is normal in size. Mediastinal contours are unremarkable. IMPRESSION: No acute intrathoracic abnormalities.
[2025-03-18 15:48] LABS: Anion Gap 12.6 mEq/L (5.0-15.0); BUN Blood Urea Nitrogen 10.0 mg/dL (7-18); Glucose Level 394.0 mg/dL (74-106); Potassium 3.6 mEq/L (3.5-5.1); Troponin High Sensitivity 3.8 pg/mL (<58.9)
[2025-03-18] MEDS ORDERED: ASPIRIN 81 MG CHEWABLE TABLET ONE (16:04)
--- NOTE | 2025-03-18 16:27 | EDPHYS ---
Physician Documentation [facility] Name: Alexandru Galan Age: 64 yrs Sex: Male : 1960 Arrival Date: 03/18/2025 Time: 14:15 Bed 8 Private MD: ED Physician Cortez Bronson HPI: 03/18 14:36 This 64 yrs old Black Male presents to ER via Ambulatory with complaints of Chest Pain, cr8 Shortness Of Breath, Arm Pain - left, Numbness Of Hand. 14:36 Patient is a 64-year-old male with a history of hypertension diabetes hyperlipidemia cr8 that comes in the emergency room complaining of intermittent chest pain since Saturday. Today has been more consistent. Is described as a sharp pain. Reports this morning he also felt short of breath especially with ambulation. Has had no recent fever nausea vomiting. Saturday he did get a little dizzy but none since. On the drive to the emergency room his left arm felt numb. He has never had this pain before.. Historical: - Allergies: 14:39 NKDA; me1 - PMHx: 14:39 Diabetes - NIDDM; Hypertension; me1 - PSHx: 14:39 Neck sx; me1 - Immunization history:: Adult Immunizations up to date. - Infectious Disease History:: Denies. - Social history:: Smoking status: Patient denies any tobacco usage or history of. ROS: 14:36 Constitutional: as per HPI cr8 Exam: 14:36 Constitutional: This is a well developed, well nourished patient who is awake, alert, cr8 and in no acute distress. Neck: Trachea midline, no thyromegaly or masses palpated, and no cervical lymphadenopathy. Supple, full range of motion without nuchal rigidity, or vertebral point tenderness. No Meningismus. Chest/axilla: Normal chest wall appearance and motion. Nontender with no deformity. No lesions are appreciated. Cardiovascular: Regular rate and rhythm with a normal S1 and S2. No gallops, murmurs, or rubs. Respiratory: Lungs have equal breath sounds bilaterally, clear to auscultation. No rales, rhonchi or wheezes noted. No increased work of breathing. Abdomen/GI: Soft, non-tender, with normal bowel sounds. No distension. No guarding or rebound. Skin: Warm, dry with normal turgor. Normal color with no rashes, no lesions, and no evidence of cellulitis. MS/ Extremity: Pulses equal, no cyanosis. Neurovascular intact. Full, normal range of motion. Neuro: Awake and alert, GCS 15, oriented to person, place, time, and situation. Cranial nerves II-XII grossly intact. Motor strength 5/5 in all extremities. Sensory grossly intact. 16:22 ECG was reviewed by the Attending Physician. cr8 Vital Signs: 14:37 BP 185 / 99; Pulse 95; Resp 19; Temp 98.2; Pulse Ox 97% ; Weight 94.8 kg; Height 5 ft. me1 8 in. ; Pain 7/10; 15:00 BP 156 / 86; Pulse 93; Resp 17; Pulse Ox 100% on R/A; Pain 7/10; ar8 16:00 BP 144 / 80; Pulse 83; Resp 16 S; Pulse Ox 98% on R/A; ar8 17:32 BP 157 / 96; Pulse 73; Resp 16; Pulse Ox 100% on R/A; ph 18:09 Pain 5/10; ar8 14:37 Body Mass Index 31.78 (94.80 kg, 172.72 cm) me1 14:37 Pain Scale: Adult me1 15:00 Pain Scale: Adult ar8 18:09 Pain Scale: Adult ar8 MDM: 14:31 Medical Screening Exam initiated cr8 14:52 Data reviewed: vital signs, nurses notes, lab test result(s), EKG, radiologic studies, cr8 plain films. Consideration of Admission/Observation Patient was admitted/placed on observation. Management of patient was discussed with the following: [place] [employer] Supervisor: Discussed patient's presentation assessment and workup with Dr. Phillips. Discussed the troponin and D-dimer levels. Discussed the EKG findings. He is okay with consultation and observation. No orders recommendations present at this time. Independent interpretation of the following test(s) in the Emergency Department X-Ray: My interpretation is Chest x-ray shows no acute abnormalities. Cardiac silhouette is within normal limits. No pneumothorax. 16:39 Scoring Tools HEART Score: Total Score = 4. ED course: Exam without evidence of volume cr8 overload so doubt heart failure. EKG without signs of active ischemia. Given the timing of pain to ER presentation, single troponin was negative so doubt NSTEMI. Presentation not consistent with acute PE (ddimer age adjusted nml),pneumothorax (not visualized on chest xr), thoracic aortic dissection, pericarditis, tamponade, pneumonia (no infectious symptoms, clear chest xr), myocarditis (no recent illness, neg trop). HEART score:4 so plan to admit patient for risk stratification.. ED course: HEART Score from https://www.emrap.org/corependium/calculator/heart-score on 03/18/2025, 04:41 PM All calculations should be rechecked by clinician prior to use RESULT SUMMARY: +4 Moderate Score Risk of major cardiac event in next six weeks is 12 to 16.6%, based on the Malu et al HEART score 2013 validation study. INPUTS: History -> Moderately suspicious ECG -> Normal Age -> = 64 Risk factors -> 1 or 2 risk factors Troponin -> Normal. 16:55 ED course: Hospitalist notified pending admission.. cr8 03/18 14:31 Order name: Basic Metabolic Panel; Complete Time: 15:51 cr8 03/18 14:31 Order name: CBC with Diff; Complete Time: 15:07 cr8 03/18 14:31 Order name: Troponin HS; Complete Time: 15:51 cr8 03/18 14:39 Order name: D-Dimer; Complete Time: 15:23 cr8 03/18 17:42 Order name: Basic Metabolic Panel EDMS 03/18 17:42 Order name: Basic Metabolic Panel EDMS 03/18 17:42 Order name: Basic Metabolic Panel EDMS 03/18 17:42 Order name: Basic Metabolic Panel EDMS 03/18 17:42 Order name: CBC with Automated Diff EDMS 03/18 17:42 Order name: CBC with Automated Diff EDMS 03/18 17:42 Order name: CBC with Automated Diff EDMS 03/18 17:42 Order name: CBC with Automated Diff EDMS 03/18 17:42 Order name: Lipid Profile EDMS 03/18 17:42 Order name: Lipid Profile EDMS 03/18 17:42 Order name: Magnesium EDMS 03/18 17:42 Order name: Magnesium EDMS 03/18 17:42 Order name: Magnesium EDMS 03/18 17:42 Order name: Magnesium EDMS 03/18 17:42 Order name: Phosphorus EDMS 03/18 17:42 Order name: Phosphorus EDMS 03/18 17:42 Order name: Phosphorus EDMS 03/18 17:42 Order name: Phosphorus EDMS 03/18 17:42 Order name: T4 Free EDMS 03/18 17:42 Order name: T4 Free EDMS 03/18 17:42 Order name: Thyroid Stimulating Hormone EDMS 03/18 17:42 Order name: Thyroid Stimulating Hormone EDMS 03/18 17:42 Order name: Troponin High Sensitivity EDMS 03/18 17:42 Order name: Troponin High Sensitivity EDMS 03/18 17:42 Order name: Troponin High Sensitivity EDMS 03/18 14:31 Order name: XRAY Chest (1 view); Complete Time: 15:37 cr8 03/18 17:42 Order name: Echo with Doppler EDMS 03/18 14:31 Order name: Cardiac monitoring; Complete Time: 15:03 cr8 03/18 14:31 Order name: EKG - Nurse/Tech; Complete Time: 15:03 cr8 03/18 14:31 Order name: IV Saline Lock; Complete Time: 15:03 cr8 03/18 14:31 Order name: Labs collected and sent; Complete Time: 15:03 cr8 03/18 14:31 Order name: O2 Per Protocol; Complete Time: 15:03 cr8 03/18 14:31 Order name: O2 Sat Monitoring; Complete Time: 15:03 cr8 EC:52 Rate is 92 beats/min. Rhythm is regular. QRS [place] is Normal. VA interval is normal. QRS cr8 interval is normal. QT interval is normal. Q waves are Present in lead V1. T waves are Inverted in lead V1. No ST changes noted. Clinical impression: Abnormal EKG without significant change and EKG does not show any evidence of acute ischemia. There is a Q wave in with inverted T waves in V1 which possibly could be old anterior CO. Interpreted by me. Administered Medications: 16:08 Drug: Aspirin PO Chewable Tablet 324 mg PO once; 81 mg tablets x 4 Route: PO; ar8 17:32 Follow up: Response: No adverse reaction ar8 17:28 Drug: morphine IVP or IV 2 mg IVP once over 4 mins Route: IVP; Infused Over: 4 mins; ar8 Site: right antecubital; 18:09 Follow up: Response: No adverse reaction; Pain is decreased ar8 18:09 Follow up: Pain 5/10 Adult ar8 Disposition Summary: 03/18/25 16:26 Hospitalization Ordered Notes: Hospitalization Status: Observation cr8 Location: Telemetry/MedSurg (observation) cr8 Condition: Stable cr8 Problem: new cr8 Symptoms: are unchanged cr8 Bed/Room Type: Standard cr8 Provider: Sam Zapata(03/18/25 16:55) cr8 Room Assignment: 428(03/18/25 17:55) bc6 Diagnosis - Chest pain, unspecified cr8 - Diabetes mellitus due to underlying condition with hyperglycemia cr8 - Dyspnea cr8 Forms: - Medication Reconciliation Form cr8 - SBAR form cr8 - Leadership Thank You Letter cr8 Signatures: Dispatcher [employer] EDMS Coretta Nick bc6 Kiersten Odom, RN RN me1 Bill Darnell NP BACK HOE OPERATOR cr8 Ashok Chaidez RN RN ar8 Corrections: (The following items were deleted from the chart) 14:31 14:31 BASIC METABOLIC PANEL+C.LAB.BRZ ordered. EDMS EDMS 14:31 14:31 CBC+H.LAB.BRZ ordered. EDMS EDMS 14:31 14:31 Troponin High Sensitivity+C.LAB.BRZ ordered. EDMS EDMS 14:31 14:31 Chest Single View+RAD.RAD.BRZ ordered. EDMS EDMS 16:55 16:26 Marlyn Arambula cr8 cr8 17:55 16:26 cr8 bc6
--- NOTE | 2025-03-18 16:27 | ER ---
Nurse's Notes [facility] Name: Alexandru Galan Age: 64 yrs Sex: Male : 1960 Arrival Date: 03/18/2025 Time: 14:15 Bed 8 Private MD: Diagnosis: Chest pain, unspecified;Diabetes mellitus due to underlying condition with hyperglycemia;Dyspnea Presentation: 03/18 14:37 Chief complaint: Patient states: intermittent cp since Saturday that is sharp 02/18 and me1 radiates to left arm causing numbness in left arm. Reports associated SOB and that on Saturday he became dizzy with an episode of the chest pain. Coronavirus screen: Vaccine status: Patient reports receiving the 2nd dose of the covid vaccine. Ebola Screen: No symptoms or risks identified at this time. Initial Sepsis Screen: Does the patient meet any 2 criteria? No. Patient's initial sepsis screen is negative. Does the patient have a suspected source of infection? No. Patient's initial sepsis screen is negative. Risk Assessment: Do you want to hurt yourself or someone else? Patient reports no desire to harm self or others. Onset of symptoms was March 13, 2025. 14:37 Method Of Arrival: Ambulatory me1 14:37 Acuity: NACHO 3 me1 Historical: - Allergies: 14:39 NKDA; me1 - PMHx: 14:39 Diabetes - NIDDM; Hypertension; me1 - PSHx: 14:39 Neck sx; me1 - Immunization history:: Adult Immunizations up to date. - Infectious Disease History:: Denies. - Social history:: Smoking status: Patient denies any tobacco usage or history of. Screenin:00 [facility] ED Fall Risk Assessment (Adult) History of falling in the last 3 months, ar8 including since admission No falls in past 3 months (0 pts) Confusion or Disorientation No (0 pts) Intoxicated or Sedated No (0 pts) Impaired Gait No (0 pts) Mobility Assist Device Used No (0 pt) Altered Elimination No (0 pt) Score/Fall Risk Level 0 - 2 = Low Risk. Abuse screen: Denies threats or abuse. Nutritional screening: No deficits noted. Tuberculosis screening: No symptoms or risk factors identified. Assessment: 14:50 General: Appears in no apparent distress. Behavior is calm, cooperative. ar8 14:50 Pain: Complains of pain in anterior aspect of left upper chest Pain radiates to left ar8 arm Pain currently is 7 out of 10 on a pain scale. Quality of pain is described as stabbing, Pain began 8-2-25. Neuro: No deficits noted. Level of Consciousness is awake, alert, obeys commands, Oriented to person, place, time, situation, Bullet Lubricant Mixer are equal bilaterally Moves all extremities. Gait is steady, Speech is normal. Cardiovascular: Reports chest pain, Rhythm is sinus rhythm. Respiratory: No deficits noted. Airway is patent Respiratory effort is even, unlabored, Respiratory pattern is regular, symmetrical, No SOB noted during assessment. 17:33 Reassessment: Patient appears in no apparent distress at this time. Patient and/or ph family updated on plan of care and expected duration. Pain level reassessed. Patient is alert, oriented x 3, equal unlabored respirations, skin warm/dry/pink. Vital Signs: 14:37 BP 185 / 99; Pulse 95; Resp 19; Temp 98.2; Pulse Ox 97% ; Weight 94.8 kg; Height 5 ft. me1 8 in. ; Pain 7/10; 15:00 BP 156 / 86; Pulse 93; Resp 17; Pulse Ox 100% on R/A; Pain 7/10; ar8 16:00 BP 144 / 80; Pulse 83; Resp 16 S; Pulse Ox 98% on R/A; ar8 17:32 BP 157 / 96; Pulse 73; Resp 16; Pulse Ox 100% on R/A; ph 18:09 Pain 5/10; ar8 14:37 Body Mass Index 31.78 (94.80 kg, 172.72 cm) me1 14:37 Pain Scale: Adult me1 15:00 Pain Scale: Adult ar8 18:09 Pain Scale: Adult ar8 ED Course: 14:17 Patient arrived in ED. im 14:21 Bill Darnell NP is PHCP. cr8 14:21 Cortez Bronson MD is Attending Physician. cr8 14:39 Triage completed. me1 14:39 Arm band placed on Patient placed in an exam room. me1 14:52 No provider procedures requiring assistance completed. Inserted saline lock: 22 gauge ar8 in right antecubital area, using aseptic technique. Blood collected. Flushed with 10 mL NS. 14:52 Patient maintains SpO2 saturation greater than 95% on room air. ar8 14:57 XRAY Chest (1 view) In Process Unspecified. EDMS 14:58 Ashok Chaidez, RN is Primary Nurse. ar8 15:00 Bed in low position. Call light in reach. Side rails up X2. Provided Education on: plan ar8 of care, diagnostic, and estimated wait time. . Client placed on continuous cardiac and pulse oximetry monitoring. NIBP monitoring applied. 15:04 EKG done, by ED staff, reviewed by Bill Darnell SEED CORE OPERATOR. ar8 16:26 Cortez Bronson MD is Hospitalizing Provider. cr8 16:26 Marlyn Arambula MD is Hospitalizing Provider. cr8 16:55 Hospitalizing Provider role handed off by Marlyn Arambula MD cr8 16:55 Sam Zapata is Hospitalizing Provider. cr8 18:37 Patient admitted, IV remains in place. ar8 Administered Medications: 16:08 Drug: Aspirin PO Chewable Tablet 324 mg PO once; 81 mg tablets x 4 Route: PO; ar8 17:32 Follow up: Response: No adverse reaction ar8 17:28 Drug: morphine IVP or IV 2 mg IVP once over 4 mins Route: IVP; Infused Over: 4 mins; ar8 Site: right antecubital; 18:09 Follow up: Response: No adverse reaction; Pain is decreased ar8 18:09 Follow up: Pain 5/10 Adult ar8 Medication: 15:00 VIS not applicable for this client. ar8 Outcome: 16:26 Decision to Hospitalize by Provider. cr8 18:37 Admitted to Med/surg accompanied by tech, via wheelchair, room 428, with chart, Report ar8 called to faxed to 4th floor 18:37 Condition: stable 18:37 Discharge instructions given to instructed on reason for admission 18:38 Patient left the ED. ar8 Signatures: Dispatcher [employer] EDJennifer Burns, RN RN Uma Solano Michelle, RN RN me1 Bill Darnell NP SEED CORE OPERATOR cr8 Ashok Chaidez RN RN ar8
[2025-03-18] MEDS ORDERED: MORPHINE 2 MG/ML SYR ONE (17:23)
[2025-03-18] MEDS ORDERED: ONDANSETRON 4 MG/2 ML VIAL IV PRN (17:33)
[2025-03-18] MEDS ORDERED: ACETAMINOPHEN 325 MG TABLET PO PRN (17:33)
[2025-03-18] MEDS ORDERED: D50W 25 GM/50 ML SYRINGE IV PRN (17:33)
[2025-03-18] MEDS ORDERED: GLUCAGON 1 MG/VIAL IV PRN (17:33)
--- NOTE | 2025-03-18 17:50 | P.HP ---
Certification for Inpatient Patient admitted to: Observation With expected LOS: <2 Midnights Patient will require the following post-hospital care: None Practitioner: I am a practitioner with admitting privileges, knowledge of patient current condition, hospital course, and medical plan of care. Services: Services provided to patient in accordance with Admission requirements found in Title 42 Section 412.3 of the Code of Federal Regulations Patient History Date of Service: 03/18/25 Reason for admission: Chest pain r/o History of Present Illness: Alexandru Galan is a 64 year old male with pmhx Diabetes mellitus- NIDDM, mild CAD, neck surgery who presents with sharp left sided chest pain that began no Saturday and described as "off and on" to the same location and with the same severity, today the chest pain started to radiate to his left arm. He reports having a C in 2017, findings revealed mild stenosis to the LAD. Laboratory evaluation significant for H&H 13/38, serum glucose 394, troponin 3.8. Chest x-ray reports "No acute intrathoracic abnormalities." Alexandru will be admitted to hospitalist service for further evaluation and treatment of Chest pain r/o ACS. Allergies No Known Drug Allergies Allergy (Verified 01/26/17 23:27) Unknown Home Medications: Metformin ER [Glucophage ER*] 500 mg PO BID #180 tab.sa 04/11/13 Glimepiride [Amaryl] 2 mg PO DAILY 02/09/15 lisinopriL [Lisinopril] 10 mg PO DAILY 01/26/17 Atorvastatin Calcium [Lipitor] 40 mg PO DAILY #30 tab 01/29/17 carvediloL [Coreg*] 3.125 mg PO BID 6AM 6PM #60 tab 01/29/17 Ciprofloxacin HCl [Cipro 500 MG Tablet] 500 mg PO BID #20 tab 05/28/23 Hydrocodone 5/APAP 325 [Bono 5/325*] 1 tab PO Q6H PRN #15 tab 05/28/23 metroNIDAZOLE [Flagyl] 500 mg PO Q8H #14 tab 05/28/23 - Past Medical/Surgical History Diabetic: Yes -: DM -: HTN -: Neck sx - Family History Mother -: Heart disease, Hypertension, Diabetes - Social History Smoking Status: Never smoker Alcohol use: No CD- Drugs: No Caffeine use: No Review of Systems Other: Per HPI Physical Examination - Physical Exam General: Alert, In no apparent distress, Oriented x3 HEENT: Atraumatic, Normocephalic Neck: Supple, 2+ carotid pulse no bruit Respiratory: Clear to auscultation bilaterally, Normal air movement Cardiovascular: Normal pulses, Regular rate/rhythm Capillary refill: <2 Seconds Gastrointestinal: Normal bowel sounds, Soft and benign Musculoskeletal: No clubbing Integumentary: No rashes Neurological: Normal speech, Normal tone - Studies Laboratory Data (last 24 hrs) 03/18/25 03/18/25 14:52 14:52 WBC 8.10 Hgb 13.4 L Hct 38.9 L Plt Count 272 Sodium 140 Potassium 3.6 BUN 10 Creatinine 1.23 Glucose 394 H Assessment and Plan - Plan Assessment and Plan Chest pain r/o ACS Hx Mild CAD - EKG: No obvious ST segment changes, trend - Serial troponin pending - Ordered transthoracic echocardiogram - Chest x-ray reports "No acute intrathoracic abnormalities." - Consult Cardiology - recommendations appreciated - S/P aspirin 324 mg PO x 1 in ED - Start daily baby aspirin and statin - Symptom control with PRN acetaminophen, nitroglycerin, morphine -continuous telemetry -TSH/FreeT4, A1C, lipid panel pending Diabetes mellitus- NIDDM - Accu-Chek with sliding scale insulin - A1c in the a.m. Hypertension Hyperlipidemia - Continue home medications as appropriate DVT ppx Lovenox Full code LOS 24-hour OBS Discharge Plan: Home Plan to discharge in: 24 Hours - Advance Directives Does patient have a Living Will: No Does patient have a Durable POA for Healthcare: No Time Spent Managing Pts Care (In Minutes): 55
[2025-03-18 19:20] VITALS: BMI 31.7
[2025-03-18] MEDS: NA CHLORIDE 0.9% 1,000 ML IV SCH (19:47)
[2025-03-18] MEDS: ATORVASTATIN 40 MG TAB PO SCH (20:33)
[2025-03-18] MEDS: ENOXAPARIN 40 MG/0.4 ML SQ SCH (20:33)
[2025-03-18] MEDS: MORPHINE 2 MG/ML SYR IV PRN (20:38)
[2025-03-18] MEDS: INSULIN REGULAR (HUMAN) 100 UNIT/ML SQ SCH (20:59)
[2025-03-18] MEDS: HYDRALAZINE HCL 20 MG/ML VIAL IV PRN (23:33)
[2025-03-19 06:16] LABS: Absolute Lymphocytes (CBC) 1.5 K/uL (0.7-4.9); Hematocrit 38.2 % (39.6-49.0); Hemoglobin 13.1 g/dL (13.6-17.9); MCH 29.5 pg (27.0-35.0); MCHC 34.2 g/dL (32.0-36.0); MCV 86.3 fL (80-100); MPV 7.9 fL (7.6-11.3); Nucleated RBC Absolute Count 0.0 (0-0); Nucleated Red Blood Cells % 0.0 % (0-0); RBC Red Blood Cell Count 4.43 M/uL (4.33-5.43); White Blood Count 7.80 thou/uL (4.3-10.9)
[2025-03-19 06:42] LABS: Anion Gap 5.7 mEq/L (5.0-15.0); BUN Blood Urea Nitrogen 8.0 mg/dL (7-18); Glucose Level 154.0 mg/dL (74-106); HDL Cholesterol 33.0 mg/dL (40-60); LDL Cholesterol, Calculated 46.0 mg/dL (<130); LDL Cholesterol,Calc NonReport 46.0; Magnesium 1.9 mg/dL (1.6-2.4); Potassium 3.7 mEq/L (3.5-5.1); Thyroid Stimulating Hormone 1.24 uIU/mL (0.358-3.740)
[2025-03-19] MEDS: ASPIRIN EC 81 MG TAB PO SCH (08:17)
--- NOTE | 2025-03-19 10:11 | P.CNS ---
Date of Consult: 03/19/25 Chief Complaint: Chest pain r/o History of Present Illness: Patient with PMH of HTN, DM, presented with chest pain that happened twice over the last few days, feel sharp, left sided, no palpitations, no syncope. Allergies No Known Drug Allergies Allergy (Verified 01/26/17 23:27) Unknown Home medications list reviewed: Yes Home Medications: Metformin ER [Glucophage ER*] 500 mg PO BID #180 tab.sa 04/11/13 Glimepiride [Amaryl] 2 mg PO DAILY 02/09/15 lisinopriL [Lisinopril] 10 mg PO DAILY 01/26/17 Atorvastatin Calcium [Lipitor] 40 mg PO DAILY #30 tab 01/29/17 carvediloL [Coreg*] 3.125 mg PO BID 6AM 6PM #60 tab 01/29/17 Amlodipine [Norvasc*] 1 tab PO DAILY 03/18/25 Empagliflozin [Jardiance] 1 tab PO DAILY 03/18/25 - Past Medical/Surgical History Diabetic: Yes -: DM -: HTN -: Neck sx - Family History Mother Medical History: Heart disease, Hypertension, Diabetes - Social History Smoking Status: Never smoker Alcohol use: No CD- Drugs: No Caffeine use: No Review of Systems 10-point ROS is otherwise unremarkable Physical Examination Temp Pulse Resp BP Pulse Ox 98.2 F 69 18 183/88 H 98 03/19/25 08:00 03/19/25 08:00 03/19/25 08:00 03/19/25 08:00 03/19/25 08:00 General: Alert, In no apparent distress HEENT: Atraumatic, PERRLA, Mucous membr. moist/pink, EOMI, Sclerae nonicteric Neck: Supple, 2+ carotid pulse no bruit, No LAD, Without JVD or thyroid a bnormality Respiratory: Clear to auscultation bilaterally, Normal air movement Cardiovascular: Regular rate/rhythm, Normal S1 S2 Gastrointestinal: Normal bowel sounds, No tenderness Musculoskeletal: No tenderness Integumentary: No rashes Neurological: Normal gait, Normal speech, Normal tone, Normal affect Lymphatics: No axilla or inguinal lymphadenopathy Laboratory Data (last 24 hrs) 03/18/25 03/18/25 14:52 14:52 WBC 8.10 Hgb 13.4 L Hct 38.9 L Plt Count 272 Sodium 140 Potassium 3.6 BUN 10 Creatinine 1.23 Glucose 394 H - Problems (1) Chest pain Onset Date: 02/10/15 Current Visit: No Status: Acute Plan: troponin negative x2 NPO for stress test (Leixscan) get echo ASA 81 mg daily Lipitor 40 mg daily Qualifiers: Chest pain type: precordial pain Qualified Code(s): R07.2 - Precordial pain (2) DM2 (diabetes mellitus, type 2) Onset Date: 01/28/17 Current Visit: No Status: Chronic Plan: tight glycemic control is advised. Qualifiers: Diabetes mellitus prison insulin use: without exterminator termite use Diabetes mellitus complication status: with hyperglycemia Qualified Code(s): E11.65 - Type 2 diabetes mellitus with hyperglycemia (3) HTN (hypertension) Onset Date: 01/28/17 Current Visit: No Status: Chronic Plan: reconcile and continue home medications monitor Qualifiers: Hypertension type: essential hypertension Qualified Code(s): I10 - Essential (primary) hypertension
[2025-03-19] MEDS ORDERED: REGADENOSON 0.4 MG/5 ML SYR IV ONE (11:13)
--- NOTE | 2025-03-19 12:46 | RAD REPORT ---
EXAM: Nuclear medicine cardiac perfusion examination with ejection fraction HISTORY: Chest pain Chest pain TECHNIQUE: Rest images: 10.2 mCi technetium 99m sestamibi Stress images: 31.1 mCi of technetium 99m sestamibi COMPARISON: None. FINDINGS: Tomographic images: Fixed defect is seen along the inferior wall on both rest and stress. However, wi th stress there is a greater degree of photopenia along the inferior wall near the apex likely mild stress-induced ischemia. Ejection fraction of 58%. EDV: 98 mL ESV: 41 mL LHR: 0.26 TID: 0.90 IMPRESSION: There is evidence of mild stress-induced ischemia involving the inferior wall near the apex, adjacent an area of probable scarring.
[2025-03-19] MEDS: NA CHLORIDE 0.9% 500 ML ONE (14:09)
--- NOTE | 2025-03-19 14:19 | ECHO ---
HEIGHT: 5 ft 8 in WEIGHT: 209 lb 0 oz DATE OF STUDY: 03/19/[address]: Ashanti Zepeda NP 2-DIMENSIONAL: YES M.MODE: YES DOPPLER: YES COLOR FLOW: YES TDS: PORTABLE: YES DEFINITY: BUBBLE STUDY: DIAGNOSIS: CHEST PAIN CARDIAC HISTORY: CATHERIZATION: SURGERY: PROSTHETIC VALVE: PACEMAKER: MEASUREMENTS (cm) DIASTOLIC (NORMALS) SYSTOLIC (NORMALS) IVSd 0.9 (0.6-1.2) LA Diam 3.9 (1.9-4.0) LVEF 60-65% LVIDd 4.4 (3.5-5.7) LVIDs 2.9 (2.0-3.5) %FS 35% LVPWd 1.2 (0.6-1.2) Ao Diam 3.3 (2.0-3.7) 2 DIMENSIONAL ASSESSMENT: RIGHT ATRIUM: NORMAL LEFT ATRIUM: NORMAL RIGHT VENTRICLE: NORMAL LEFT VENTRICLE: NORMAL TRICUSPID VALVE: NORMAL MITRAL VALVE: NORMAL PULMONIC VALVE: NORMAL AORTIC VALVE: NORMAL PERICARDIAL EFFUSION: NONE AORTIC ROOT: NORMAL LEFT VENTRICULAR WALL MOTION: NORMAL DOPPLER/COLOR FLOW: NORMAL COMMENTS: 1. NORMAL LEFT VENTRICULAR SYSTOLIC FUNCTION, EJECTION FRACTION 60-65%, NORMAL WALL MOTION 2. NORMAL DIASTOLIC FUNCTION TECHNOLOGIST: ROCHELLE XIE
[2025-03-19] MEDS ORDERED: HEPARIN 5000 UNIT/ML 1 ML VIAL ONE (15:35)
[2025-03-19] MEDS ORDERED: LIDOCAINE 1% 20 ML MDV ONE (15:35)
[2025-03-19] MEDS ORDERED: HEPA 1000U/500MLS 2,000 UNIT/1,000 ML BAG IV ONE (15:35)
[2025-03-19] MEDS ORDERED: HEPARIN 10,000 UNIT/10 ML VIAL IV ONE (15:35)
[2025-03-19] MEDS: MIDAZOLAM HCL 2 MG/2 ML INJ ONE (15:46)
[2025-03-19] MEDS: FENTANYL CITR 100 MCG/2 ML ONE (15:46)
[2025-03-19 18:09] VITALS: O2SAT 100
[2025-03-19] MEDS: AMLODIPINE 10 MG TAB PO SCH (18:37)
--- NOTE | 2025-03-19 18:51 | P.DS ---
Admission Date: 03/19/25 Discharge Date: 03/19/25 Disposition: ROUTINE DISCHARGE Discharge Condition: GOOD Reason for Admission: Chest pain r/o Brief History of Present Illness: Diagnosis Chest pain r/o ACS Hx Mild CAD Diabetes mellitus- NIDDM Hypertension Hyperlipidemia [facility] 03/18/2025 Alexandru Galan is a 64 year old male with pmhx Diabetes mellitus- NIDDM, mild CAD, neck surgery who presents with sharp left sided chest pain that began no Saturday and described as "off and on" to the same location and with the same severity, today the chest pain started to radiate to his left arm. He reports having a [facility] in 2017, findings revealed mild stenosis to the LAD. Laboratory evaluation significant for H&H 13/38, serum glucose 394, troponin 3.8. Chest x-ray reports "No acute intrathoracic abnormalities." Alexandru will be admitted to hospitalist service for further evaluation and treatment of Chest pain r/o ACS. Hospital Course: Patient was admitted and treated for the following diagnosis: Chest pain r/o ACS Hx Mild CAD Patient was seen by cardiology, EKG with no significant ST changes, echocardiogram with in normal limits, Chest x-ray reports "No acute intrathoracic abnormalities." Patient had a stress test showing "mild stress-induced ischemia involving the inferior wall near the apex." Dr. Phillips took him to [facility] resulting with Mild nonobstructive CAD He has tolerated guideline treatments of aspirin, statin, and Lovenox. Diabetes mellitus- NIDDM Patient tolerated Accu-Chek with sliding scale insulin, A1c 7.9. Patient will need to follow-up with endocrinology or PCP for further blood sugar management Hypertension Hyperlipidemia Patient tolerated supportive care and continued home medication as appropriate Alexandru was seen in morning rounds hemodynamically stable, and reports chest pain is resolved. Dr. Phillips evaluated him and cleared him for discharge to follow- up in his office or with the patient's personal physiotherapy assistant. Physical Exam General: AAO x3, NAD HEENT: Atraumatic, Normocephalic Respiratory: Clear BBS, on room air Cardiovascular: normal sinus rhythm, S1-S2 present Gastrointestinal: Normal bowel sounds, Soft and benign on palpation Neurological: Normal speech, Normal tone Vital Signs/Physical Exam: Temp Pulse Resp BP Pulse Ox 98.0 F 92 H 15 155/88 H 100 03/19/25 16:50 03/19/25 18:37 03/19/25 18:05 03/19/25 18:37 03/19/25 12:00 Laboratory Data at Discharge: WBC 7.80 thou/uL (4.3-10.9) 03/19/25 06:07 Hgb 13.1 g/dL (13.6-17.9) L 03/19/25 06:07 Hct 38.2 % (39.6-49.0) L 03/19/25 06:07 Plt Count 246 thou/uL (152-406) 03/19/25 06:07 Sodium 141 mEq/L (136-145) 03/19/25 06:01 Potassium 3.7 mEq/L (3.5-5.1) 03/19/25 06:01 BUN 8 mg/dL (7-18) 03/19/25 06:01 Creatinine 0.87 mg/dL (0.70-1.30) 03/19/25 06:01 Glucose 154 mg/dL (74-106) H 03/19/25 06:01 Phosphorus 2.8 mg/dL (2.5-4.9) 03/19/25 06:01 Magnesium 1.9 mg/dL (1.6-2.4) 03/19/25 06:01 Triglycerides 44 mg/dL (<150) 03/19/25 06:01 Cholesterol 88 mg/dL (<200) 03/19/25 06:01 HDL Cholesterol 33 mg/dL (40-60) L 03/19/25 06:01 Cholesterol/HDL Ratio 2.67 03/19/25 06:01 Home Medications: Metformin ER [Glucophage ER*] 500 mg PO BID #180 tab.sa 04/11/13 Glimepiride [Amaryl] 2 mg PO DAILY 02/09/15 lisinopriL [Lisinopril] 10 mg PO DAILY 01/26/17 Atorvastatin Calcium [Lipitor] 40 mg PO DAILY #30 tab 01/29/17 carvediloL [Coreg*] 3.125 mg PO BID 6AM 6PM #60 tab 01/29/17 Amlodipine [Norvasc*] 1 tab PO DAILY 03/18/25 Empagliflozin [Jardiance] 1 tab PO DAILY 03/18/25 Physician Discharge Instructions: 1. Please call and schedule a follow-up appointment with your PCP in 3-5 days - Please follow-up with your PCP for medication refills/adjustments 2. Please call and schedule a follow-up appointment with Dr. Phillips or your physiotherapy assistant in 3-5 days 3. Continue heart healthy diet 4. activity restrictions do not lift more than 10 pounds for the next 3 days 5. Return to the ED if symptoms worsen Continue home medications as prescribed by outside providers Diet: AHA Activity: No lifting more than 10 lbs Followup: NONE,NONE [Primary Care Provider] - Carlos Phillips MD [ACTIVE - CAN ADMIT] -
--- NOTE | 2025-03-19 19:28 | OP ---
Date of Procedure: 03/19/2025 Surgeon: Carlos Phillips Procedure Performed: Selective coronary angiogram. Indication For Procedure: Chest pain, abnormal stress test. Complications: None. Estimated Blood Loss: Less than 50 cc. Access: Right radial, closed by TR band. Sedation Time: 20 minutes with 1 of Versed and 50 of fentanyl. Description Of Procedure: After risks, and benefits, and alternatives were explained to the patient, patient agreed to proceed with procedure and signed informed consent. The patient was brought back to the research laboratory technician, prepped and draped in sterile fashion. Time-out was performed. Sedation was admini stered. Next, right radial access was obtained using ultrasound-guided micropuncture technique. Tig er 4.0 catheter was advanced over a J-wire to the aortic root. Selective angiogram was done using e same catheter. At the end of procedure, catheter was removed over a J-wire. Sheath was removed. TR band was applied. Hemostasis was achieved, and the patient was moved back to Recovery in stable c ondition. Findings: 1. Left main normal. 2. LAD; ostial 20% disease and mild luminal irregularities. 3. Left circ . 4. RCA; mild luminal irregularities. Assessment And Plan: Mild nonobstructive CAD. Plan is continue medical management. ALEXSANDRA/NEIL Voice ID: [id number] Report ID: [id number]
[2025-03-19 21:02] VITALS: BP 177/89; TEMP 97.8
--- NOTE | 2025-03-23 11:31 | TREADPHA ---
DX: CHEST PAIN Date of Study: Ht: 5' 8 " Wt: 209 lb 0 oz Consulting Physician: CELESTINO MEDICATIONS: TYLENOL, ASPIRIN, LIPITOR, DEXTROSE, LOVENOX, GLUCAGEN, APRESOLINE, NOVOLIN R, MORPHINE, ZOFRAN HISTORY: 64 YEAR OLD MALE WITH COMPLAINTS OF CHEST PAIN. HISTORY OF HYPERTENSION, HYPERLIPIDEMIA AND DIABETES MELLITUS. PHYSICIAL EXAMINATION: RESTING B.P.: 151/80 RESTING H.R.: 75 RESTING EKG: SINUS RHYTHM PROTOCOL: PHARMACOLOGIC EXERCISE TIME: 3:30 B.P. AT PEAK STRESS: 148/64 IMPRESSION: LEXISCAN INJECTED. CARDIOLITE INJECTED - SEE NUCLEAR MEDICINE REPORT. NO AMANDA PAIN. NO VENTRICULAR TACHYCARDIA, NO SUPARVENTRICULAR TACHYCARDIA, NO ARRHYTHMIA. COMPLAINTS OF MILD SHORTNESS OF BREATH. COFFEE PROVIDED.
== END 2025-03-19 21:30 | disposition home or self-care (01) | DRG 287 ==
LOC: ER 14:15 → ERHOLD 17:33 → 2ND 18:17 → 4TH 18:58 → 2ND 19:08 → OBSVTOIN 03-19 17:41
PROVIDERS: ADMIT Internal Medicine; ATTEND Internal Medicine
PROC: B2111ZZ Fluoroscopy of Multiple Coronary Arteries using Low Osmolar Contrast (ICD-10-PCS; principal; 2025-03-19)
PROC: 4A023N7 Measurement of Cardiac Sampling and Pressure, Left Heart, Percutaneous Approach (ICD-10-PCS; 2025-03-19)
DX: R07.2 Precordial pain (principal); I10 Essential (primary) hypertension; E78.5 Hyperlipidemia, unspecified; E11.65 Type 2 diabetes mellitus with hyperglycemia; I25.10 Atherosclerotic heart disease of native coronary artery without angina pectoris; Z79.84 Long term (current) use of oral hypoglycemic drugs; Z79.02 Long term (current) use of antithrombotics/antiplatelets; Z79.899 Other long term (current) drug therapy
CPT/HCPCS: 36415; 71045; 76937; 78452; 80048; 80061; 82947; 83036; 83735; 84100; 84439; 84443; 84484; 85025; 85379; 93005; 93017; 93306; 93454; 96374; 99152; 99285; A9500; C1893; G0378; J0360; J1644; J1650; J1815; J2003; J2250; J2270; J2785; J3010; J7030; J7040; Q9966

== ENCOUNTER 2025-06-04 08:02 | Emergency (ER) | payer OTHER ==
[2025-06-04] MEDS ORDERED: CYCLOBENZAPRINE 10 MG TAB ONE (08:27)
[2025-06-04] MEDS ORDERED: KETOROLAC 30 MG/ML INJ ONE (08:27)
--- NOTE | 2025-06-04 08:39 | EDPHYS ---
Physician Documentation [facility] Name: Alexandru Galan Age: 64 yrs Sex: Male : 1960 Arrival Date: 06/04/2025 Time: 08:02 Bed 4 Private MD: ED Physician Cortez Bronson HPI: 06/04 08:35 This 64 yrs old Black Male presents to ER via Ambulatory with complaints of Back Pain. sp3 08:35 64-year-old male with history of diabetes and hypertension prior sciatica presents with sp3 recurrent sciatica symptoms consisting of low back pain with radiation down the left posterior leg with no loss of bowel or bladder control, saddle paresthesia, or loss of function musculoskeletal he anywhere on his body. Patient states that it flares up from time to time and NSAIDs and Flexeril have helped in the past. He denies any intra-abdominal pain, near-syncope, syncope, chest pain, shortness of breath, upper back pain, or any other signs or symptoms on ROS at this time.. Historical: - Allergies: 08:17 NKDA; ss - PMHx: 08:17 Diabetes - NIDDM; Hypertension; ss - PSHx: 08:17 Neck sx; ss - Infectious Disease History:: Denies. - Social history:: Smoking status: Patient denies any tobacco usage or history of. ROS: 08:36 Constitutional: Negative for fever, chills, and weight loss, Eyes: Negative for injury, sp3 pain, redness, and discharge, ENT: Negative for injury, pain, and discharge, Neck: Negative for injury, pain, and swelling, Cardiovascular: Negative for chest pain, palpitations, and edema, Respiratory: Negative for shortness of breath, cough, wheezing, and pleuritic chest pain, Abdomen/GI: Negative for abdominal pain, nausea, vomiting, diarrhea, and constipation, MS/Extremity: Negative for injury and deformity, Skin: Negative for injury, rash, and discoloration, Neuro: Negative for headache, weakness, numbness, tingling, and seizure, Psych: Negative for depression, anxiety, suicide ideation, homicidal ideation, and hallucinations, Allergy/Immunology: Negative for hives, rash, and allergies, Endocrine: Negative for neck swelling, polydipsia, polyuria, polyphagia, and marked weight changes, Hematologic/Lymphatic: Negative for swollen nodes, abnormal bleeding, and unusual bruising, 08:36 All other systems are negative, Exam: 08:36 Constitutional: This is a well developed, well nourished patient who is awake, alert, sp3 and in no acute distress. Head/Face: Normocephalic, atraumatic. Eyes: Pupils equal round and reactive to light, extra-ocular motions intact. Lids and lashes normal. Conjunctiva and sclera are non-icteric and not injected. Cornea within normal limits. Periorbital areas with no swelling, redness, or edema. Neck: Trachea midline, no thyromegaly or masses palpated, and no cervical lymphadenopathy. Supple, full range of motion without nuchal rigidity, or vertebral point tenderness. No Meningismus. Chest/axilla: Normal chest wall appearance and motion. Nontender with no deformity. No lesions are appreciated. Cardiovascular: Regular rate and rhythm with a normal S1 and S2. No gallops, murmurs, or rubs. Normal PMI, no JVD. No pulse deficits. Respiratory: Lungs have equal breath sounds bilaterally, clear to auscultation and percussion. No rales, rhonchi or wheezes noted. No increased work of breathing, no retractions or nasal flaring. Abdomen/GI: Soft, non-tender, with normal bowel sounds. No distension or tympany. No guarding or rebound. No evidence of tenderness throughout. Skin: Warm, dry with normal turgor. Normal color with no rashes, no lesions, and no evidence of cellulitis. MS/ Extremity: Pulses equal, no cyanosis. Neurovascular intact. Full, normal range of motion. Neuro: Awake and alert, GCS 15, oriented to person, place, time, and situation. Cranial nerves II-XII grossly intact. Motor strength 5/5 in all extremities. Sensory grossly intact. Cerebellar exam normal. Normal gait. Psych: Awake, alert, with orientation to person, place and time. Behavior, mood, and affect are within normal limits. 08:36 Back: Mild pain to lower back on palpation. Pain with straight leg raise on the left at 30 degrees. Distal neurovascular exam normal. Patient is ambulatory without difficulty. Abdominal exam demonstrates no pain and no pulsating mass., Vital Signs: 08:15 BP 145 / 76; Pulse 66; Resp 15; Temp 97.7(O); Pulse Ox 100% on R/A; Weight 93.44 kg; ss Height 5 ft. 8 in. ; Pain 03/21; 08:15 Body Mass Index 31.32 (93.44 kg, 172.72 cm) 08:15 Pain Scale: Adult ss MDM: 08:10 Medical Screening Exam initiated sp3 08:37 Data reviewed: vital signs, nurses notes, old medical records. ED course: Differential sp3 diagnosis includes sciatica versus muscle skeletal pain versus other. Clinically I have ruled out AAA, abdominal obstruction or other critical pathology. Will treat with ketorolac IV and Flexeril p.o. and discharged on p.o. meds. Follow-up with PCP.. Administered Medications: 08:44 Drug: Ketorolac IM 30 mg IM once Route: IM; Site: right deltoid; ap3 08:44 Drug: Cyclobenzaprine PO 10 mg PO once Route: PO; ap3 Disposition Summary: 06/04/25 08:38 Discharge Ordered Notes: Location: Home sp3 Condition: Stable sp3 Diagnosis - Sciatica, left sp3 Followup: sp3 - With: Private Physician - When: Upon discharge from the Emergency Department - Reason: Continuance of care Discharge Instructions: - Discharge Summary Sheet sp3 - Sciatica sp3 Forms: - Medication Reconciliation Form sp3 - Antibiotic Education sp3 - Prescription Opioid Use sp3 - Patient Portal Instructions sp3 - Leadership Thank You Letter sp3 Prescriptions: - Diclofenac Sodium 75 mg Oral Tablet Sustained Release - take 1 tablet ORAL route 2 times per day; 30 tablet; Refills: 0, Product sp3 Selection Permitted - Cyclobenzaprine 5 mg Oral Tablet - take 1 tablet ORAL route 3 times per day As needed; 15 tablet; Refills: 0, sp3 Product Selection Permitted Signatures: Lauren Masterson RN RN ss Malathi Oquendo RN RN ap3 Cortez Bronson MD MD sp3
--- NOTE | 2025-06-04 08:39 | ER ---
Nurse's Notes [facility] Name: Alexandru Galan Age: 64 yrs Sex: Male : 1960 Arrival Date: 06/04/2025 Time: 08:02 Bed 4 Private MD: Diagnosis: Sciatica, left Presentation: 06/04 08:15 Chief complaint: Patient states: "my sciatic pain is back. It happened a few months ss ago, and y'all gave me a shot that helped, and it's just back again." Pt c/o low back pain that radiates towards L buttock, L upper leg. Coronavirus screen: Client denies travel out of the [place] in the last 14 days. Ebola Screen: Patient denies exposure to infectious person. Patient denies travel to an Ebola-affected area in the 21 days before illness onset. Initial Sepsis Screen: Does the patient meet any 2 criteria? No. Patient's initial sepsis screen is negative. Does the patient have a suspected source of infection? No. Patient's initial sepsis screen is negative. Risk Assessment: Do you want to hurt yourself or someone else? Patient reports no desire to harm self or others. Onset of symptoms was June 03, 2025. 08:15 Method Of Arrival: Ambulatory ss 08:15 Acuity: NACHO 4 ss Historical: - Allergies: 08:17 NKDA; ss - PMHx: 08:17 Diabetes - NIDDM; Hypertension; ss - PSHx: 08:17 Neck sx; ss - Infectious Disease History:: Denies. - Social history:: Smoking status: Patient denies any tobacco usage or history of. Screenin:45 [facility] ED Fall Risk Assessment (Adult) History of falling in the last 3 months, ap3 including since admission No falls in past 3 months (0 pts) Confusion or Disorientation No (0 pts) Intoxicated or Sedated No (0 pts) Impaired Gait No (0 pts) Mobility Assist Device Used No (0 pt) Altered Elimination No (0 pt) Score/Fall Risk Level 0 - 2 = Low Risk Oriented to surroundings, Maintained a safe environment, Educated pt \\T\\ family on fall prevention, incl call for assistance when getting out of bed, Assessed \\T\\ reinforced patient's understanding of fall precautions, Hourly rounding (assess needs \\T\\ fall precautionary measures) done, Used ambulatory aids as needed (educated on \\T\\ assisted with). Abuse screen: Denies threats or abuse. Nutritional screening: No deficits noted. Tuberculosis screening: No symptoms or risk factors identified. Assessment: 08:44 General: Appears in no apparent distress. Behavior is calm, cooperative, appropriate ap3 for age. Pain: Complains of pain in back and left leg. Neuro: Level of Consciousness is awake, alert, obeys commands, Oriented to person, place, time, situation, Appropriate for age Gait is steady. Cardiovascular: Patient's skin is warm and dry. Respiratory: Airway is patent Respiratory effort is even, unlabored, Respiratory pattern is regular, symmetrical. Vital Signs: 08:15 BP 145 / 76; Pulse 66; Resp 15; Temp 97.7(O); Pulse Ox 100% on R/A; Weight 93.44 kg; ss Height 5 ft. 8 in. ; Pain 8/10; 08:15 Body Mass Index 31.32 (93.44 kg, 172.72 cm) ss 08:15 Pain Scale: Adult ss ED Course: 08:06 Patient arrived in ED. al6 08:08 Cortez Bronson MD is Attending Physician. sp3 08:17 Triage completed. ss 08:17 Arm band placed on right wrist. ss 08:44 Malathi Oquendo RN is Primary Nurse. ap3 08:45 Patient has correct armband on for positive identification. Bed in low position. Call ap3 light in reach. Side rails up X2. 08:45 Provided Education on: medication prior to administration . ap3 08:45 No provider procedures requiring assistance completed. Patient did not have IV access ap3 during this emergency room visit. Administered Medications: 08:44 Drug: Ketorolac IM 30 mg IM once Route: IM; Site: right deltoid; ap3 08:44 Drug: Cyclobenzaprine PO 10 mg PO once Route: PO; ap3 Medication: 08:45 VIS not applicable for this client. ap3 Outcome: 08:38 Discharge ordered by . sp3 09:16 Patient left the ED. aa5 Signatures: Ashlyn Cintron RN RN aa5 Lauren Masterson RN RN aMlathi Oquendo RN RN ap3 Cortez Bronson MD MD sp3 Sharon Cross al6 Corrections: (The following items were deleted from the chart) 08:43 08:13 Ashlyn Cintron, MICHEAL is Primary Nurse. aa5 aa5
[2025-06-04 09:38] VITALS: BP 145/76; TEMP 97.7; O2SAT 100
== END 2025-06-04 09:16 | disposition home or self-care (01) ==
LOC: ER 08:02
DX: M54.32 Sciatica, left side (principal)
CPT/HCPCS: 96372; 99284; J1885